=== PATIENT | male | born 1990 | race Caucasian/White ===

== ENCOUNTER 2022-03-21 21:25 | Emergency (ER) | payer SELFPAY ==
[2022-03-21 21:28] VITALS: BP 126/82; PULSE 98; RESP 16; TEMP 36.8; O2SAT 95
--- NOTE | 2022-03-21 21:37 | W.ED.NEUROSD ---
HPI - Neuro Symptoms/Deficit General: Chief Complaint: Neuro Symptoms/Deficit Stated Complaint: possible med reaction Time Seen by Provider: 03/21/22 21:37 History of Present Illness: 31-year-old male patient comes in tonight for complaints of feeling of malaise and dental infection. Patient reports that he taken some amoxicillin tonight and made down and felt lightheaded and like he could not see straight. Patient appears nontoxic. Patient appears no acute distress. Associated symptoms: Deny headache(s) Review of Systems Const: Denies: fever(s) Neuro: Reports: dizziness; Denies: headache(s) PFSH ED PFSH: Medical History Generalized anxiety disorder Severe, saw psychiatry in the past, but not recently Major depression Surgical History No pertinent past surgical history Family History Mother Cancer breast cancer Father Psychiatric illness Social History Smoking and tobacco status: former smoker Quit status (tobacco): has quit using tobacco Former quit date comment: 4 year history of smoking Alcohol intake: never Household members: family Housing: House Marital status: Unknown Highest education level completed: Some College, No Degree Current occupational status: employed Current occupation: [employer] Previous occupational history: [employer] [place] [employer] Exam Const: COMMON NORMALS: alert HENMT: COMMON NORMALS: normocephalic HEAD & SCALP: normocephalic NOSE: Normal nares present MOUTH: Normal oral and palatal mucosa present TEETH & GINGIVA: Yes poor dentition Eye: OTHER: Patient has chronic eye problems including floaters. Neck/C-Spine: COMMON NORMALS: full ROM Resp: COMMON NORMALS: normal respiratory effort and clear to auscultation bilaterally AUSCULTATION: clear to auscultation bilaterally Cardio: COMMON NORMALS: regular rate and regular rhythm RATE: regular rate RHYTHM: regular rhythm Extremity: COMMON NORMALS: normal to inspection Neuro: SENSORIUM/ORIENTATION: Yes alert Psych: COMMON NORMALS: cooperative and normal affect Skin: COMMON NORMALS: turgor normal GENERAL SKIN EXAM: turgor normal Course Vital Signs: Vital signs: Vital Signs Temperature 98.3 F 03/21/22 21:28 Pulse Rate 98 03/21/22 21:28 Respiratory Rate 16 03/21/22 21:28 Blood Pressure 126/82 03/21/22 21:28 Pulse Oximetry 95 03/21/22 21:28 Oxygen Delivery Me thod 03/21/22 21:28 MDM - Neuro Symptoms/Deficit Medical Decision Making Patient comes in today with complaints of dizziness and dental pain. On exam patient appears nontoxic. Patient appears in mild to moderate pain. Respirations are even lungs are clear to auscultation. Abdomen soft nontender. Skin is warm and dry. Patient has some mild erythema to the right face. Tenderness on palpation. Differential diagnosis includes but not limited to dental abscess, migraine headache, anxiety attack, dental pain. Laboratory values noted a small increase in leukocytes at 13,000, CT of the neck noted odontogenic abscess and facial cellulitis without any signs of retropharyngeal abscess. Patient was treated with ketorolac clindamycin and dexamethasone. Patient will be continued on clindamycin and ketorolac at home. Strongly recommended follow-up with dentist for definitive care. Return to ED for new concerns. Lab Data 03/21/22 21:40 03/21/22 21:[address] 03/21/22 21:41 IMPRESSION: 1. Negative for retropharyngeal abscess. 2. Odontogenic abscess. 3. Right facial cellulitis. Laboratory Results WBC 13.6 10^3/uL (4.0-10.0) H 03/21/22 21:40 RBC 4.77 10^6/uL (4.1-5.3) 03/21/22 21:40 Hgb 14.5 g/dL (11.7-16.6) 03/21/22 21:40 Hct 44.7 % (42.0-52.0) 03/21/22 21:40 MCV 93.7 fl (80-94) 03/21/22 21:40 MCH 30.4 pg (28.0-34.0) 03/21/22 21:40 MCHC 32.4 g/dL (30.0-36.0) 03/21/22 21:40 RDW 12.8 % (12.1-15.1) 03/21/22 21:40 Plt Count 320 10^3/cmm (130-400) 03/21/22 21:40 MPV 10.4 fL (7.4-10.4) 03/21/22 21:40 Neut % (Auto) 65.6 % 03/21/22 21:40 Lymph % (Auto) 25.4 % 03/21/22 21:40 [place] % (Auto) 7.2 % 03/21/22 21:40 Eos % (Auto) 1.2 % 03/21/22 21:40 Baso % (Auto) 0.4 % 03/21/22 21:40 Neut # (Auto) 8.93 10^3/uL (1.8-7.7) H 03/21/22 21:40 Lymph # (Auto) 3.5 10^3/uL (0.8-4.8) 03/21/22 21:40 [place] # (Auto) 1.0 10^3/uL (0.2-0.9) H 03/21/22 21:40 Eos # (Auto) 0.2 10^3/uL (0.0-0.8) 03/21/22 21:40 Baso # (Auto) 0.1 10^3/uL (0.0-0.1) 03/21/22 21:40 Nucleated RBC % (auto) 0 % 03/21/22 21:40 Nucleated RBCs # 0.0 /100WBC 03/21/22 21:40 Sodium 140 mmol/L (136-145) 03/21/22 21:40 Potassium 3.2 mmol/L (3.5-5.1) L 03/21/22 21:40 Chloride 99 mmol/L (98-107) 03/21/22 21:40 Carbon Dioxide 25 mmol/L (22-29) 03/21/22 21:40 Anion Gap 19.2 (5-19) H 03/21/22 21:40 BUN 6 mg/dL (6-20) 03/21/22 21:40 Creatinine 0.9 mg/dL (0.7-1.2) 03/21/22 21:40 GFR Calculation 98.4 mL/min (90-130) 03/21/22 21:40 Glucose 104 mg/dL (65-115) 03/21/22 21:40 Calculated Osmolality 288 mOsm/kg (285-295) 03/21/22 21:40 Calcium 8.3 mg/dL (8.5-10.5) L 03/21/22 21:40 Total Bilirubin 0.3 mg/dL (0.15-1.2) 03/21/22 21:40 AST 14 U/L (0-40) 03/21/22 21:40 ALT 15 U/L (0-41) 03/21/22 21:40 Alkaline Phosphatase 77 U/L (40-130) 03/21/22 21:40 Total Protein 7.1 g/dL (6.6-8.7) 03/21/22 21:40 Albumin 4.2 g/dL (3.5-5.2) 03/21/22 21:40 Globulin 2.9 g/dL (1.3-4.6) 03/21/22 21:40 Discharge Plan Discharge Patient Disposition: Home Clinical Impression: Pain, dental, Generalized anxiety disorder, Dental abscess Condition: Stable Prescriptions: New clindamycin HCl 300 mg capsule 300 mg PO QID 7 Days Qty: 28 0RF ketorolac 10 mg tablet 10 mg PO Q6H PRN (Reason: pain (scale score 7-10)) 3 Days Qty: 15 0RF No Action citalopram 40 mg tablet 40 mg PO DAILY 30 Days Qty: 30 3RF clonazepam 1 mg tablet 1 mg PO TID 30 Days Qty: 90 0RF Discharge Orders: Discharge ED (Routine); Ordered 03/21/22 Ordered By: Fuad Conte Referrals: Garrett Castillo, AUTHORIZATION NURSE [Primary Care Provider] - Discharge Diet: Usual diet Discharge Activity: Increase activity as tolerated Patient Instructions: Dental Abscess (ED), Toothache (ED) Activity Restrictions/Additional Instructions: Take antibiotic as directed. Drink plenty of water and fluids with antibiotic. Use acetaminophen and ketorolac for pain. Use ice or heat for further pain relief. Follow-up with dentist for definitive care. Return to ED for new concerns. Coding Level of Care Code ED Harness Worker for Sukumar Fwd Exam Comprehensive
--- NOTE | 2022-03-21 21:41 | CTR_ITS ---
PROCEDURE INFORMATION: Exam: CT Neck With Contrast Exam date and time: 03/21/2022 9:52 PM Age: 31 years old Clinical indication: Other: Possible rxn to meds; Additional info: Dental abscess, R/O retropharyngeal involvement TECHNIQUE: Imaging protocol: Computed tomography of the neck with contrast. Radiation optimization: All CT scans at this facility use at least one of these dose optimization techniques: automated exposure control; mA and/or kV adjustment per patient size (includes targeted exams where dose is matched to clinical indication); or iterative reconstruction. Contrast material: OMNI 350; Contrast volume: 95 ml; Contrast route: INTRAVENOUS (IV); Other protocol: This patient has received 0 known CTs and 0 known cardiac nuclear medicine studies in the 12 months prior to the current study. COMPARISON: CT sinus wo con* [id number] 04/02/2016 9:12 PM RADIATION DOSE METRICS: Total DLP (mGy-cm): 351.31 FINDINGS: Paranasal sinuses: Right maxillary sinus mucosal thickening without air-fluid level. Dental: Multiple dental extractions and dental cavities. Pharynx: Unremarkable. No significant tonsillar enlargement. Larynx: Unremarkable. Epiglottis is normal. Prevertebral and retropharyngeal spaces: Unremarkable. Salivary glands: Normal. Glands are normal in size. Thyroid: Normal. No enlarged or calcified nodules. Lymph nodes: Unremarkable. No lymphadenopathy. Trachea: Visualized trachea is unremarkable. Lungs: Unremarkable as visualized. Bones/joints: Unremarkable. No acute fracture. Soft tissues: Right lower face soft tissue edema. Negative for soft tissue gas. Negative for peripherally enhancing abscess. CT/CT neck w con* [id number] IMPRESSION: 1. Negative for retropharyngeal abscess. 2. Odontogenic abscess. 3. Right facial cellulitis.
[2022-03-21 21:53] LABS: Basophils # 0.1 10^3/uL (0.0-0.1); Basophils % 0.4 %; Eosinophils # 0.2 10^3/uL (0.0-0.8); Eosinophils % 1.2 %; Hematocrit 44.7 % (42.0-52.0); Hemoglobin 14.5 g/dL (11.7-16.6); Lymphocytes # 3.5 10^3/uL (0.8-4.8); Lymphocytes % 25.4 %; Mean Corpuscular HGB Conc 32.4 g/dL (30.0-36.0); Mean Corpuscular Hemoglobin 30.4 pg (28.0-34.0); Mean Corpuscular Volume 93.7 fl (80-94); Mean Platelet Volume 10.4 fL (7.4-10.4); Monocytes % 7.2 %; Neutrophils # 8.93 10^3/uL (1.8-7.7); Neutrophils % 65.6 %; Nucleated Red Blood Cells % 0 %; Platelet Count 320 10^3/cmm (130-400); Red Blood Count 4.77 10^6/uL (4.1-5.3); Red Cell Distribution Width 12.8 % (12.1-15.1); White Blood Count 13.6 10^3/uL (4.0-10.0)
[2022-03-21] MEDS: iohexol 350 mg/mL 500 mL Btl (per mL) IV (21:57)
[2022-03-21 22:02] LABS: Alanine Aminotransferase 15 U/L (0-41); Albumin Level 4.2 g/dL (3.5-5.2); Alkaline Phosphatase 77 U/L (40-130); Anion Gap 19.2 (5-19); Aspartate Amino Transferase 14 U/L (0-40); Blood Urea Nitrogen 6 mg/dL (6-20); Calcium 8.3 mg/dL (8.5-10.5); Carbon Dioxide 25 mmol/L (22-29); Chloride 99 mmol/L (98-107); Creatinine Clr Calc Pharmacy 144.6013; Globulin 2.9 g/dL (1.3-4.6); Glomerular Filtration Rate 98.4 mL/min (90-130); Glucose 104 mg/dL (65-115); Osmolality Calculated 288 mOsm/kg (285-295); Potassium 3.2 mmol/L (3.5-5.1); Sodium 140 mmol/L (136-145); Total Bilirubin 0.3 mg/dL (0.15-1.2); Total Protein 7.1 g/dL (6.6-8.7)
[2022-03-21] MEDS: ondansetron 2 mg/ML SDV 2 mL 4 MG IVP (22:03)
[2022-03-21] MEDS: ketorolac 30 mg/mL INJ 15 MG IVP (22:36)
[2022-03-21] MEDS: dexamethasone 10 mg/mL INJ IVP (22:37)
[2022-03-21] MEDS: clindamycin 900 MG/50 ML PREMIX 100 MG IV (22:40)
[2022-03-21 23:01] VITALS: BP 120/89; PULSE 92; O2SAT 96
== END 2022-03-21 23:12 | disposition home or self-care (01) ==
PROVIDERS: Emergency Provider Nurse Practitioner Family; PCP Clinical Nurse Specialist Adult Health
DX: K04.7 Periapical abscess without sinus (principal); F41.1 Generalized anxiety disorder; Z87.891 Personal history of nicotine dependence
CPT/HCPCS: 70491; 80053; 85025; 96365; 96375; 99285; J1100; J1885; J2405; J3490; Q9967

== ENCOUNTER 2022-08-26 11:06 | Emergency (ER) | payer SELFPAY ==
[2022-08-26 11:26] VITALS: BP 144/100; PULSE 91; RESP 18; TEMP 36.7; O2SAT 96; BMI 32.5
[2022-08-26 12:11] VITALS: BP 133/80
[2022-08-26 12:29] LABS: Basophils # 0.1 10^3/uL (0.0-0.1); Basophils % 0.5 %; Eosinophils # 0.1 10^3/uL (0.0-0.8); Eosinophils % 0.6 %; Hematocrit 47.1 % (42.0-52.0); Hemoglobin 15.7 g/dL (11.7-16.6); Lymphocytes # 1.8 10^3/uL (0.8-4.8); Lymphocytes % 16.1 %; Mean Corpuscular HGB Conc 33.3 g/dL (30.0-36.0); Mean Corpuscular Hemoglobin 31.3 pg (28.0-34.0); Mean Corpuscular Volume 93.8 fl (80-94); Mean Platelet Volume 9.4 fL (7.4-10.4); Monocytes # 0.6 10^3/uL (0.2-0.9); Monocytes % 5.6 %; Neutrophils % 76.9 %; Nucleated Red Blood Cells % 0 %; Platelet Count 367 10^3/cmm (130-400); Red Blood Count 5.02 10^6/uL (4.1-5.3); Red Cell Distribution Width 12.9 % (12.1-15.1); White Blood Count 11.1 10^3/uL (4.0-10.0)
[2022-08-26] MEDS: ondansetron 2 mg/ML SDV 2 mL 4 MG IVP (12:42)
[2022-08-26] MEDS: meclizine 25 mg tablet PO (12:42)
[2022-08-26] MEDS: sodium chloride 0.9% 1,000 ML 999 ML IV (12:42)
[2022-08-26 12:48] LABS: Alanine Aminotransferase 15 U/L (0-41); Albumin Level 4.6 g/dL (3.5-5.2); Alkaline Phosphatase 72 U/L (40-130); Anion Gap 15.5 (5-19); Aspartate Amino Transferase 14 U/L (0-40); Blood Urea Nitrogen 6 mg/dL (6-20); Calcium 8.6 mg/dL (8.5-10.5); Carbon Dioxide 28 mmol/L (22-29); Chloride 99 mmol/L (98-107); Globulin 2.7 g/dL (1.3-4.6); Glomerular Filtration Rate 112.8 mL/min (90-130); Glucose 102 mg/dL (65-115); Osmolality Calculated 286 mOsm/kg (285-295); Potassium 3.5 mmol/L (3.5-5.1); Sodium 139 mmol/L (136-145); Total Bilirubin 0.4 mg/dL (0.15-1.2); Total Protein 7.3 g/dL (6.6-8.7)
--- NOTE | 2022-08-26 12:50 | W.ED.DIZZY ---
HPI - Dizziness General: Chief Complaint: Dizziness Stated Complaint: NVD Time Seen by Provider: 08/26/22 11:48 History of Present Illness: HPI Narrative: This patient is a 31 year old presenting with dizziness. He woke up this morning at around 10 am, and as soon as he opened his eye he felt like he was spinning, then falling. He says that his body kept jerking and flailing like he was trying to catch his balance but he was unable to control it. He was sweating and nauseous. The symptoms continued for about 45 minutes, and then he finally called 911. He was not able to get up or do anything to control the symptoms during that time. He was sitting up on the stretcher during my exam - eyes open - but looking as though he was trying to remain still. He still felt like he was unbalanced . He continued to have some nausea. His vision is blurry - but no double vision. He denies tinnitus, but feels like his left ear is full . He has a hoarse voice that is not typical for him. He denies sore throat, no recent illness, no headache, no chest pain or shortness of breath. He takes citalopram - no new medications or dose changes. He denies any substance use at all. He denies any injury. No numbness, tingling, difficulty with coordination. [facility] ED PFSH: Medical History Generalized anxiety disorder Severe, saw psychiatry in the past, but not recently Major depression Surgical History No pertinent past surgical history Family History Mother Cancer breast cancer Father Psychiatric illness Social History Smoking and tobacco status: former smoker Quit status (tobacco): has quit using tobacco Former quit date comment: 4 year history of smoking Alcohol intake: never Substance/Drug Use: former Household members: family Housing: House Marital status: Unknown Highest education level completed: Some College, No Degree Current occupational status: employed Current occupation: [employer] Previous occupational history: [employer] Physical Exam Const: COMMON NORMALS: no acute distress, patient oriented x3, no limitations and alert GENERAL APPEARANCE: cooperative and comfortable HENMT: HEAD & SCALP: normal to inspection FACE & SINUS: normal facial exam THROAT: other (small white patches on the tonsils) Eye: GENERAL EYE: appearance normal, both eyes and all related structures OTHER: right eye with slight injection of the conjunctiva Neck/C-Spine: COMMON NORMALS: supple, no meningeal signs and no JVD Chest: COMMONS NORMALS: normal inspection of the chest Resp: COMMON NORMALS: normal respiratory effort, No use of accessory muscles and clear to auscultation bilaterally AUSCULTATION: clear to auscultation bilaterally Cardio: COMMON NORMALS: no JVD, regular rate, regular rhythm and No murmurs present (Cardio) RATE: regular rate RHYTHM: regular rhythm GI: COMMON NORMALS: Normal to inspection, nondistended, normoactive bowel sounds present, Soft to palpation and non-tender INSPECTION: Yes normal to inspection AUSCULTATION: Yes normoactive bowel sounds PALPATION: Yes Soft to palpation Back/Pelvis: COMMON NORMALS: thoracic and lumbar spine normal to inspection Extremity: COMMON NORMALS: normal to inspection Neuro: COMMON NORMALS: patient oriented x3, moves all extremities, no focal motor deficits and no sensory deficits noted SENSORIUM/ORIENTATION: Yes alert MENINGEAL SIGNS: Yes no meningeal signs Psych: COMMON NORMALS: mental status grossly normal, cooperative and normal affect Skin: COMMON NORMALS: no rashes or lesions noted and turgor normal GENERAL SKIN EXAM: no rashes or lesions noted and turgor normal Course Vital Signs: Vital signs: Vital Signs Temperature 98.0 F 08/26/22 11:26 Pulse Rate 91 08/26/22 11:26 Respiratory Rate 18 08/26/22 11:26 Blood Pressure 133/80 08/26/22 12:11 Pulse Oximetry 96 08/26/22 11:26 Oxygen Delivery Me thod Room Air 08/26/22 11:26 MDM - Dizziness Medical Decision Making Likely BPPV - however unclear what to make of the uncontrollable limb movements that the patient described. No sore throat, but some patchy white spots on tonsils. Redness of the right eye. CT ordered due to the atypical limb movements - however the patient is refusing. He initially refused because he hadn't gotten his meds and couldn't lay down for the scan. Then later he just said he didn't want it and wants to leave. He reported to me that he had the limb movements while in CT - but the senior pharmacy technician did not observe any movements. Patient was discharged with meclizine and outpatient follow up - precautions. Lab Data 08/26/22 12:21 08/26/22 12:21 Laboratory Results WBC 11.1 10^3/uL (4.0-10.0) H 08/26/22 12:21 RBC 5.02 10^6/uL (4.1-5.3) 08/26/22 12:21 Hgb 15.7 g/dL (11.7-16.6) 08/26/22 12:21 Hct 47.1 % (42.0-52.0) 08/26/22 12:21 MCV 93.8 fl (80-94) 08/26/22 12:21 MCH 31.3 pg (28.0-34.0) 08/26/22 12:21 MCHC 33.3 g/dL (30.0-36.0) 08/26/22 12:21 RDW 12.9 % (12.1-15.1) 08/26/22 12:21 Plt Count 367 10^3/cmm (130-400) 08/26/22 12:21 MPV 9.4 fL (7.4-10.4) 08/26/22 12:21 Neut % (Auto) 76.9 % 08/26/22 12:21 Lymph % (Auto) 16.1 % 08/26/22 12:21 [place] % (Auto) 5.6 % 08/26/22 12:21 Eos % (Auto) 0.6 % 08/26/22 12:21 Baso % (Auto) 0.5 % 08/26/22 12:21 Neut # (Auto) 8.50 10^3/uL (1.8-7.7) H 08/26/22 12:21 Lymph # (Auto) 1.8 10^3/uL (0.8-4.8) 08/26/22 12:21 [place] # (Auto) 0.6 10^3/uL (0.2-0.9) 08/26/22 12:21 Eos # (Auto) 0.1 10^3/uL (0.0-0.8) 08/26/22 12:21 Baso # (Auto) 0.1 10^3/uL (0.0-0.1) 08/26/22 12:21 Nucleated RBC % (auto) 0 % 08/26/22 12:21 Nucleated RBCs # 0.0 /100WBC 08/26/22 12:21 Sodium 139 mmol/L (136-145) 08/26/22 12:21 Potassium 3.5 mmol/L (3.5-5.1) 08/26/22 12:21 Chloride 99 mmol/L (98-107) 08/26/22 12:21 Carbon Dioxide 28 mmol/L (22-29) 08/26/22 12:21 Anion Gap 15.5 (5-19) 08/26/22 12:21 BUN 6 mg/dL (6-20) 08/26/22 12:21 Creatinine 0.8 mg/dL (0.7-1.2) 08/26/22 12:21 GFR Calculation 112.8 mL/min (90-130) 08/26/22 12:21 Glucose 102 mg/dL (65-115) 08/26/22 12:21 Calculated Osmolality 286 mOsm/kg (285-295) 08/26/22 12:21 Calcium 8.6 mg/dL (8.5-10.5) 08/26/22 12:21 Total Bilirubin 0.4 mg/dL (0.15-1.2) 08/26/22 12:21 AST 14 U/L (0-40) 08/26/22 12:21 ALT 15 U/L (0-41) 08/26/22 12:21 Alkaline Phosphatase 72 U/L (40-130) 08/26/22 12:21 Total Protein 7.3 g/dL (6.6-8.7) 08/26/22 12:21 Albumin 4.6 g/dL (3.5-5.2) 08/26/22 12:21 Globulin 2.7 g/dL (1.3-4.6) 08/26/22 12:21 Discharge Plan Discharge Patient Disposition: Home Clinical Impression: Benign paroxysmal positional vertigo Condition: Stable Prescriptions: New meclizine 25 mg tablet 25 mg PO TID PRN (Reason: dizziness) Qty: 20 0RF No Action citalopram 40 mg tablet 40 mg PO DAILY 30 Days Qty: 30 3RF clonazepam 1 mg tablet 1 mg PO TID 30 Days Qty: 90 0RF Discharge Orders: Discharge ED (Routine); Ordered 08/26/22 Ordered By: Yara Calabrese Referrals: Garrett Castillo, TOLL TESTBOARD WORKER [Primary Care Provider] - Patient Instructions: Opioid Safety, Pain Management Activity Restrictions/Additional Instructions: Return to the ED if new or worse symptoms. Coding Level of Care Code ED Business Law Teacher for Sukumar Betts
--- NOTE | 2022-08-26 12:55 | PC.NURSE ---
PT WAS TAKEN TO CT BEFORE MEDICATIONS WERE GIVEN, PT REFUSED TO CONTINUE CT UNTIL HE GETS MEDS, PT WAS GIVEN MEDS, [address] CAME BACK AFTER MEDS AND HE REFUSED AGAIN UNTIL ALL VERTIGO IS GONE.
== END 2022-08-26 13:41 | disposition home or self-care (01) ==
PROVIDERS: Emergency Provider Emergency Medicine; PCP Clinical Nurse Specialist Adult Health
DX: H81.10 Benign paroxysmal vertigo, unspecified ear (principal); Z87.891 Personal history of nicotine dependence
CPT/HCPCS: 80053; 85025; 96374; 99284; J2405; J7030; J8597

== ENCOUNTER 2023-02-03 07:15 | Inpatient (IN) | payer SELFPAY ==
[2023-02-03] VITALS (7 sets, daily range): BP systolic 111–143; BP diastolic 80–108; PULSE 98–121; RESP 15–21; TEMP 36.4–36.9; O2SAT 96–98; BMI 27.3
[2023-02-03 07:40] LABS: Basophils % 0.2 %; Eosinophils % 0.2 %; Hematocrit 48.6 % (37-53); Lymphocytes # 1.4 10^3/uL (0.8-4.8); Lymphocytes % 15.2 %; Mean Corpuscular HGB Conc 33.7 g/dL (30-55); Mean Corpuscular Hemoglobin 30.8 pg (27-33); Mean Corpuscular Volume 91.2 fl (82-101); Mean Platelet Volume 9.2 fL (7.4-10.4); Monocytes # 0.5 10^3/uL (0.2-0.9); Neutrophils # 7.52 10^3/uL (1.8-7.7); Neutrophils % 79.3 %; Nucleated Red Blood Cells % 0 %; Platelet Count 374 10^3/cmm (157-399); Red Blood Count 5.33 10^6/uL (3.85-5.65); Red Cell Distribution Width 11.9 % (12.1-15.1); White Blood Count 9.48 10^3/uL (3.29-11.43)
--- NOTE | 2023-02-03 07:43 | W.ED.GENADLT ---
HPI - General Adult General: Chief complaint: General Medical Stated complaint: medication withdraw, fear, anxiety Time Seen by Provider: 02/03/23 07:22 Source: patient Mode of arrival: ambulatory History of Present Illness: 32-year-old male presents to the emergency room complaining of withdrawal from clonazepam citalopram gabapentin and kratom. He usually sees a psychiatrist in [place] he says she is no longer practicing there and he is out of all of his medications for the last 24 hours. At the bedside he has a couple of uxem-xcs-knkcpen medications and 1 bottle of clonazepam 1 mg that is empty was filled on 01/19 for 40 tablets for 1 every 8 hours as needed. He denies desire to hurt anyone else was extremely anxious about his medications. Associated symptoms: Deny chest pain, confusion, cough, diaphoresis, decreased appetite, dyspnea, fevers/chills, headache(s), malaise, nausea, rash, palpitations, seizures, short of breath, syncope, vomiting or weakness Treatments prior to arrival: none Review of Systems Const: Denies: fever(s), chills, malaise or diaphoresis Card: Denies: chest pain, palpitations or syncope Resp: Denies: dyspnea GI: Denies: abdominal pain, nausea or vomiting : Denies: dysuria, urinary frequency or urinary urgency Musc: Denies: neck pain or back pain Skin/Breast: Denies: rash Neuro: Denies: headache(s) or confusion Psych: Reports: anxiety PFSH ED PFSH: Medical History Major depression Generalized anxiety disorder Severe, saw psychiatry in the past, but not recently Surgical History No pertinent past surgical history Family History Mother Cancer breast cancer Father Psychiatric illness Social History Smoking and tobacco/nicotine status: former use of tobacco/nicotine Quit status (tobacco/nicotine): has quit using Former quit date comment: 4 year history of smoking Alcohol intake: never Substance/Drug Use: former Household members: family Housing: House Marital status: Unknown Highest education level completed: Some College, No Degree Current occupational status: employed Current occupation: [email or web address] Previous occupational history: [employer] Physical Exam Const: COMMON NORMALS: no acute distress GENERAL APPEARANCE: cooperative and anxious ORIENTATION/CONSCIOUSNESS: Yes awake HENMT: COMMON NORMALS: normocephalic, atraumatic and hearing grossly normal bilaterally HEAD & SCALP: normocephalic and atraumatic Resp: COMMON NORMALS: normal respiratory effort, No retractions, No use of accessory muscles and clear to auscultation bilaterally AUSCULTATION: clear to auscultation bilaterally Cardio: COMMON NORMALS: regular rate, regular rhythm and No murmurs present (Cardio) RATE: regular rate RHYTHM: regular rhythm GI: COMMON NORMALS: Soft to palpation and No hepatosplenomegaly present AUSCULTATION: Yes normoactive bowel sounds PALPATION: Yes Soft to palpation, No Tenderness to palpation present (GI), No Guarding due to palpation present (GI) and Yes No hepatosplenomegaly present Extremity: COMMON NORMALS: normal to inspection, capillary refill normal, no clubbing, cyanosis or edema, no calf tenderness and no pedal edema Skin: COMMON NORMALS: no rashes or lesions noted GENERAL SKIN EXAM: no rashes or lesions noted Course Vital Signs: Vital signs: Vital Signs Temperature 98.0 F 02/03/23 07:21 Pulse Rate 107 H 02/03/23 07:23 Respiratory Rate 21 H 02/03/23 07:23 Blood Pressure 142/108 02/03/23 07:23 Pulse Oximetry 97 02/03/23 07:23 Oxygen Delivery Me thod Room Air 02/03/23 07:23 MDM - General Adult Medical Decision Making Patient states he is not taking escitalopram and gabapentin for 24 hours he does have a bottle of clonazepam refilled in [facility] for 40 tablets on 01/19 he has 3 refills for this medication but has not used them at this point. He does allude to harming himself if his symptoms do not get better. Labs and imaging reviewed medically he is cleared I am concerned given his demeanor and his response some questions regarding self-harm that if he leaves here he may not have the capacity to manage his ongoing issues with anxiety and may advance lethality. Will admit discussed with Dr. Diggs he concurs. Medical Records I reviewed the patient's medical records. Lab Data I reviewed the patient's lab results. 02/03/23 07:29 02/03/23 07:29 Laboratory Results WBC 9.48 10^3/uL (3.29-11.43) 02/03/23 07:29 RBC 5.33 10^6/uL (3.85-5.65) 02/03/23 07:29 Hgb 16.40 g/dL (11.27-16.99) 02/03/23 07:29 Hct 48.6 % (37-53) 02/03/23 07:29 MCV 91.2 fl (82-101) 02/03/23 07: MCH 30.8 pg (27-33) 02/03/23 07: MCHC 33.7 g/dL (30-55) 02/03/23 07:29 RDW 11.9 % (12.1-15.1) L 02/03/23 07:29 Plt Count 374 10^3/cmm (157-399) 02/03/23 07:29 MPV 9.2 fL (7.4-10.4) 02/03/23 07:29 Neut % (Auto) 79.3 % 02/03/23 07: Lymph % (Auto) 15.2 % 02/03/23 07:29 [place] % (Auto) 5.0 % 02/03/23 07:29 Eos % (Auto) 0.2 % 02/03/23 07:29 Baso % (Auto) 0.2 % 02/03/23 07:29 Neut # (Auto) 7.52 10^3/uL (1.8-7.7) 02/03/23 07:29 Lymph # (Auto) 1.4 10^3/uL (0.8-4.8) 02/03/23 07:29 Rapides # (Auto) 0.5 10^3/uL (0.2-0.9) 02/03/23 07:29 Eos # (Auto) 0.0 10^3/uL (0.0-0.8) 02/03/23 07:29 Baso # (Auto) 0.0 10^3/uL (0.0-0.1) 02/03/23 07:29 Nucleated RBC % (auto) 0 % 02/03/23 07:29 Nucleated RBCs # 0.0 /100WBC 02/03/23 07:29 Sodium 129 mmol/L (136-145) L 02/03/23 07:29 Potassium 3.8 mmol/L (3.5-5.1) 02/03/23 07:29 Chloride 92 mmol/L (98-107) L 02/03/23 07:29 Carbon Dioxide 23 mmol/L (22-29) 02/03/23 07:29 Anion Gap 17.8 (5-19) 02/03/23 07:29 BUN 6 mg/dL (6-20) 02/03/23 07:29 Creatinine 0.9 mg/dL (0.7-1.2) 02/03/23 07:29 GFR Calculation 97.8 mL/min (90-130) 02/03/23 07:29 Glucose 123 mg/dL (65-115) H 02/03/23 07:29 Calculated Osmolality 267 mOsm/kg (285-295) L 02/03/23 07:29 Calcium 9.2 mg/dL (8.5-10.5) 02/03/23 07:29 Total Bilirubin 0.4 mg/dL (0.15-1.2) 02/03/23 07:29 AST 20 U/L (0-40) 02/03/23 07:29 ALT 26 U/L (0-41) 02/03/23 07:29 Alkaline Phosphatase 96 U/L (40-130) 02/03/23 07:29 Total Protein 7.9 g/dL (6.6-8.7) 02/03/23 07:29 Albumin 4.8 g/dL (3.5-5.2) 02/03/23 07:29 Globulin 3.1 g/dL (1.3-4.6) 02/03/23 07:29 Urine Color Yellow (Yellow) 02/03/23 07:34 Urine Appearance Clear (CLEAR) 02/03/23 07:34 Urine pH 6 (5-7) 02/03/23 07:34 Ur Specific [place] 1.010 (1.005-1.030) 02/03/23 07:34 Urine Protein Neg (Negative) 02/03/23 07:34 Urine Glucose (UA) Norm (Normal) 02/03/23 07:34 Urine Ketones Negative (Negative) 02/03/23 07:34 Urine Blood Neg (Negative) 02/03/23 07:34 Urine Nitrate Negative (Negative) 02/03/23 07:34 Urine Bilirubin Neg (Negative) 02/03/23 07:34 Urine Urobilinogen Neg mg/dL (Negative) 02/03/23 07:34 Ur Leukocyte Esterase Negative (Negative) 02/03/23 07:34 Salicylates < 0.3 mg/dL (3-10) L 02/03/23 07:29 Urine Opiates Screen Negative ng/mL (Negative) 02/03/23 07:34 Acetaminophen < 5.0 ug/mL (10-30) L 02/03/23 07:29 Ur Barbiturates Screen Negative ng/mL (Negative) 02/03/23 07:34 Ur Phencyclidine Scrn Negative ng/mL (Negative) 02/03/23 07:34 Ur Amphetamines Screen Negative ng/mL (Negative) 02/03/23 07:34 U Benzodiazepines Scrn Positive ng/mL (Negative) H 02/03/23 07:34 Urine Cocaine Screen Negative ng/mL (Negative) 02/03/23 07:34 U Marijuana (THC) Screen Negative ng/mL (Negative) 02/03/23 07:34 Ethyl Alcohol < 10 mg/dL (0-10) 02/03/23 07:29 No radiology studies performed this visit Discharge Plan Discharge Patient Disposition: Admitted As Inpatient Clinical Impression: Suicidal ideation, Generalized anxiety disorder, Major depression Condition: Stable Prescriptions: No Action citalopram 40 mg tablet 40 mg PO DAILY 30 Days Qty: 30 3RF clonazepam 1 mg tablet 1 mg PO TID 30 Days Qty: 90 0RF meclizine 25 mg tablet 25 mg PO TID PRN (Reason: dizziness) Qty: 20 0RF Referrals: Garrett Castillo OIL WELL LOGGING ENGINEER [Primary Care Provider] - Coding Level of Care Code ED Collision Estimator for Sukumar Betts
[2023-02-03 07:48] LABS: Add Urine Microscopic? NO; Charge for UA Resulting for Rev
[2023-02-03 07:50] LABS: Bilirubin Urine Neg (Negative); Blood Urine Neg (Negative); Glucose Urine UA Norm (Normal); Ketones Urine Negative (Negative); Leukocyte Esterase Urine Negative (Negative); Nitrate Urine Negative (Negative); Protein Urine Neg (Negative); Urine Appearance Clear (CLEAR); Urine Color Yellow (Yellow); Urobilinogen Urine Neg (Negative); pH Urine 6 (5-7)
[2023-02-03 07:55] LABS: Acetaminophen < 5.0 ug/mL (10-30); Alanine Aminotransferase 26 U/L (0-41); Albumin Level 4.8 g/dL (3.5-5.2); Alcohol Level < 10 mg/dL (0-10); Alkaline Phosphatase 96 U/L (40-130); Anion Gap 17.8 (5-19); Aspartate Amino Transferase 20 U/L (0-40); Blood Urea Nitrogen 6 mg/dL (6-20); Calcium 9.2 mg/dL (8.5-10.5); Carbon Dioxide 23 mmol/L (22-29); Chloride 92 mmol/L (98-107); Creatinine Clr Calc Pharmacy 126.6433; Globulin 3.1 g/dL (1.3-4.6); Glomerular Filtration Rate 97.8 mL/min (90-130); Glucose 123 mg/dL (65-115); Osmolality Calculated 267 mOsm/kg (285-295); Potassium 3.8 mmol/L (3.5-5.1); Salicylate < 0.3 mg/dL (3-10); Sodium 129 mmol/L (136-145); Total Bilirubin 0.4 mg/dL (0.15-1.2); Total Protein 7.9 g/dL (6.6-8.7)
[2023-02-03] MEDS: LORazepam 2 mg Tablet PO (07:58)
[2023-02-03 08:00] LABS: Amphetamines Screen Urine Negative (Negative); Barbiturates Screen Urine Negative (Negative); Benzodiazepines Screen Urine Positive (Negative); Cocaine Screen Urine Negative (Negative); Opiate Screen Urine Negative (Negative); PCP Screen Urine Negative (Negative); THC Screen Urine Negative (Negative)
[2023-02-03] MEDS: gabapentin 300 mg Capsule PO ×3 (09:00→20:13)
[2023-02-03] MEDS: citalopram 20 mg Tablet 40 MG PO (09:00)
[2023-02-03] MEDS: OLANZapine 5 mg ODT PO ×2 (10:37→18:45)
[2023-02-03] MEDS: nicotine 21 mg Patch 1 PATCH TRANSDERMA (10:37)
--- NOTE | 2023-02-03 15:41 | PC.NURSE ---
Attempting to verify clonazepam 1mg TID PRN. Patient stated that he has been taken it daily for three years. This nurse contacted [facility] out-patient pharmacy and [place] pharmacy. Both denied having this medication filled by patient. Contacted [facility] pharmacy. cancelled the medication 06/28/22. Patient was not picked up by patient in May or June 2022. Contacted [facility] in [place]. The first time clonazepam was sent to [facility] was on 12/28/21. The last time was Feb 25, [address] Garrett Murphy.
--- NOTE | 2023-02-03 18:48 | PC.NURSE ---
Patient at window stating that he is about to go down hill . This nurse asked what I could do to help with this. Patient stated that the only thing that is going to help him is medication. Patient appears agitated and upset. Administered Zyprexa 5mg ODT to patient. Patient stated that he doesn't feel worse than he did upon arrival, but that he is going down hill .
[2023-02-03] MEDS: haloperidol 5 mg Tablet PO (20:13)
[2023-02-03] MEDS: CLONazepam 1 mg Tablet PO (20:52)
[2023-02-03] MEDS: nicotine 2 mg Gum BUCCAL (20:52)
[2023-02-03] MEDS: hyDROXYzine 25 mg Capsule 50 MG PO (22:19)
[2023-02-04] MEDS: OLANZapine 5 mg ODT PO ×2 (02:15→09:26)
[2023-02-04] MEDS: ibuprofen 600 mg Tablet PO (03:57)
[2023-02-04] MEDS: ondansetron 4 MG Tablet PO (03:57)
[2023-02-04] MEDS: haloperidol 5 mg Tablet PO (03:57)
--- NOTE | 2023-02-04 04:01 | PC.NURSE ---
PT HAS BEEN TO THE NURSES SEVERAL TIMES THROUGH OUT THE SHIFT STATING HE IS WITHDRAWING FROM A NEW ZEALANDER PHARMACEUTICAL MEDICATION THAT IS NOT APPROVED BY THE FDA AND KRATOM. PT REPORTED THAT THE DAY NURSE SAID THE WAS GOING TO START ME ON SUBOXONE FOR MY KRATOM WITHDRAW AND I WANT TO GO AHEAD AND GET IT NOW BECAUSE I'M REALLY HURTING AND WITHDRAWING BAD. PT WAS INFORMED THAT HE HAS NOT BEEN STARTED ON SUBOXONE AT THIS TIME BUT THIS RN WOULD NOTIFY AND ASK ABOUT THE SUBOXONE. PT HAS BEEN GIVEN HALDOL 5 MG AT THE BEGINNING OF SHIFT, PT HAD 2 DOSES OF ZYPREXA ON DAY SHIFT, PT WAS ALSO GIVEN CLONAZEPAM 1 MG WITH BEDTIME MEDICATIONS, THEN WOKE UP AND TOOK A DOSE OF ZYDIS 5 MG, THEN 2 HOURS LATER TOOK VISTARIL 50 MG. PT JUST WOKE UP AND WAS GIVEN HALDOL 5 MG FOR AGITATION , ZOFRAN 4 MG OF NAUSEA AND IBUPROFEN 600 MG FOR PAIN 08/30. PT THEN WENT TO ROOM AND RN ENCOURAGED HIM TO LAY DOWN.
--- NOTE | 2023-02-04 04:36 | PC.NURSE ---
Patient approached this tech at the nurses station and stated that he really needed to leave. This tech informed patient that he would have to speak with the doctor. Patient wanted to know when the doctor would be here because he really needs to go. This tech let patient know that he would be here later this morning. Patient then returned to his room.
--- NOTE | 2023-02-04 04:46 | PC.NURSE ---
SPOKE TO DR. JANE AND NOTIFIED OF ALL PRN'S TAKEN TONIGHT, REQUEST TO LEAVE AND SUBOXONE. NO NEW ORDERS WERE RECEIVED. DR. JANE DID TELL THIS RN TO LET PT KNOW HE WOULD BE HERE SHORTLY AND HE WOULD SEE HIM AND DISCUSS TREATMENT OPTIONS THEN AND DISCUSS WHY HE IS WANTING TO LEAVE. PT THANKED RN AND STATED HE UNDERSTOOD.
[2023-02-04 06:00] VITALS: BP 120/85; PULSE 90; RESP 18; TEMP 36.8; O2SAT 96
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
--- NOTE | 2023-02-04 06:32 | PC.NURSE ---
CONTINUES TO BE AWAKE REQUESTING MEDICATIONS FOR ANXIETY. PT INFORMED TO WAIT TO SPEAK TO DR. JANE DUE TO THE AMOUNT OF PRN ANXIETY MEDICATIONS HE HAS ALREADY RECEIVED.
[2023-02-04] MEDS: citalopram 20 mg Tablet 40 MG PO (08:13)
[2023-02-04] MEDS: gabapentin 300 mg Capsule PO ×2 (08:13→14:14)
[2023-02-04] MEDS: CLONazepam 1 mg Tablet PO ×2 (08:13→14:14)
[2023-02-04] MEDS: nicotine 21 mg Patch 1 PATCH TRANSDERMA (09:12)
--- NOTE | 2023-02-04 10:28 | PC.NURSE ---
patient reports kratom withdraws, restless in legs and arms, generalized body weakness. This nurse informed
[2023-02-04] MEDS: benztropine 1 mg Tablet PO (13:57)
[2023-02-04 14:00] VITALS: BP 117/74; PULSE 106; RESP 15; TEMP 36.8; O2SAT 96
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
[2023-02-04 15:38] VITALS: BP 117/74; PULSE 106; RESP 15; TEMP 36.8; O2SAT 96
== END 2023-02-04 16:19 | disposition home or self-care (01) | DRG 885 ==
LOC: ER 09:36 → NP 09:49
PROVIDERS: Admitting Provider Psychiatry & Neurology Psychiatry; Emergency Provider Family Medicine; PCP Clinical Nurse Specialist Adult Health; Visit Provider Psychiatry & Neurology Psychiatry
DX: F33.9 Major depressive disorder, recurrent, unspecified (principal); R45.851 Suicidal ideations; F41.1 Generalized anxiety disorder; Z87.891 Personal history of nicotine dependence; F43.10 Post-traumatic stress disorder, unspecified; F60.3 Borderline personality disorder; Z81.8 Family history of other mental and behavioral disorders; F12.10 Cannabis abuse, uncomplicated; F10.20 Alcohol dependence, uncomplicated
CPT/HCPCS: 36415; 80053; 80306; 80307; 81003; 85025; 97165; 99285; Q0162

== ENCOUNTER → 2023-03-21 12:47 | Outpatient (BNVA) | payer BC, SELFPAY | PROVIDERS: PCP Clinical Nurse Specialist Adult Health; Visit Provider Nurse Practitioner | DX: Z78.9 Other specified health status (principal); F33.9 Major depressive disorder, recurrent, unspecified; F41.1 Generalized anxiety disorder | CPT/HCPCS: 80306 ==

== ENCOUNTER → 2023-05-23 12:29 | Outpatient (BNVA) | payer BC, SELFPAY | PROVIDERS: PCP Clinical Nurse Specialist Adult Health; Visit Provider Clinical Nurse Specialist Adult Health | DX: G62.9 Polyneuropathy, unspecified (principal); K02.9 Dental caries, unspecified | CPT/HCPCS: 80053 ==

== ENCOUNTER 2023-06-21 08:50 | Outpatient (CLI) | payer BC, SELFPAY ==
--- NOTE | 2023-06-21 08:55 | XRR_ITS ---
PROCEDURE INFORMATION: Exam: XR Chest Exam date and time: 06/21/2023 8:57 AM Age: 32 years old Clinical indication: Left-sided; Patient HX: Left sided chest pain, weight gain TECHNIQUE: Imaging protocol: Radiologic exam of the chest. Views: 2 views. COMPARISON: CT neck w con* [id number] 03/21/2022 9:52 PM FINDINGS: Lungs: No focal lung consolidation. Pleural spaces: No pleural effusion. No pneumothorax. Heart/Mediastinum: Unremarkable. No cardiomegaly. Bones/joints: No acute bony abnormality. XR/XR chest 2V* [id number] IMPRESSION: No focal lung consolidation.
== END 2023-06-21 08:51 | disposition home or self-care (01) ==
LOC: RAD 08:52
PROVIDERS: PCP Clinical Nurse Specialist Adult Health; Visit Provider Clinical Nurse Specialist Adult Health
DX: R63.5 Abnormal weight gain (principal)
CPT/HCPCS: 71046; 83880

== ENCOUNTER 2023-08-18 12:26 | Outpatient (CLI) | payer BC, SELFPAY ==
--- NOTE | 2023-08-18 12:30 | XR_ITS ---
WS: [id number] Exam: XR abdomen min 2V [id number] Date/Time of Exam: 08/18/2023 12:35 PM Reason For Exam: abdominal pain/constipation No bowel obstruction or pneumoperitoneum. Significant retained stool retention in the large bowel. No sign of organ enlargement. Bony structures are intact. XR/XR abdomen min 2V [id number] IMPRESSION: 1. Constipation. No acute abdominal process.
== END 2023-08-18 12:27 | disposition home or self-care (01) ==
LOC: RAD 12:27
PROVIDERS: PCP Clinical Nurse Specialist Adult Health; Visit Provider Clinical Nurse Specialist Adult Health
DX: R10.9 Unspecified abdominal pain (principal); M79.10 Myalgia, unspecified site; K59.00 Constipation, unspecified
CPT/HCPCS: 74019; 80053; 85025; 85651; 86038; 86140; 86618; 86666; 86757

== ENCOUNTER 2023-10-10 08:22 | Emergency (ER) | payer BC, MEDICAID, SELFPAY ==
[2023-10-10 08:48] VITALS: BP 142/85; PULSE 90; RESP 18; TEMP 36.7; O2SAT 95; BMI 36.7
[2023-10-10 09:00] VITALS: BP 126/82; PULSE 90; RESP 18; O2SAT 95
--- NOTE | 2023-10-10 09:12 | ED_ITS ---
HPI - Dental/Oral 2 General: Chief complaint: General Medical Stated complaint: Facial swelling and headaches Time Seen by Provider: 10/10/23 08:53 Source: patient Mode of arrival: ambulatory Limitations: no limitations History of Present Illness: Patient is a 32-year-old male presents to ED today with a complaint of a dental infection to his right central incisor. He admittedly has very poor dentition. He states over the past 2 days he has noticed intermittent facial swelling and headaches as well as edema surrounding his top lip and gum. Reports facial swelling has improved today. Currently does not have a headache. MD Complaint: tooth pain Onset (ago): day(s) Duration: constant Severity: moderate Relieving factors: nothing Exacerbating factors: nothing Context: history of dental caries and poor dental care Associated symptoms: Reports other (facial swelling); Denies ear or mastoid pain, fever(s) or odynophagia Treatment prior to arrival: none Related Data Previous Rx's Medication Instructions Recorded losartan 25 mg tablet 25 mg PO DAILY #30 tabs 08/18/23 gabapentin 600 mg tablet 600 mg PO QID #120 tabs 09/28/23 buspirone 10 mg tablet 10 mg PO BID #60 tabs 10/04/23 citalopram 40 mg tablet 40 mg PO QAM 30 days #30 tabs 10/04/23 clonazepam 0.5 mg tablet 0.5 mg PO BID PRN anxiety #45 tabs 10/04/23 olanzapine 2.5 mg tablet 2.5 mg PO DAILY PRN paranoia #30 10/04/23 tabs clindamycin HCl 300 mg capsule 300 mg PO Q6H 7 days #28 caps 10/10/23 Allergies Allergy/AdvReac Type Severity Reaction Status Date / Time Penicillins Allergy Intermediate Hives Verified 10/08/23 21:03 Review of Systems 2 Const: Denies: fever(s), chills, body aches, fatigue or malaise Eyes: Denies: change in vision, blurry vision, photophobia, floaters or seeing flashes ENMT: Reports: dental pain and sinus pain; Denies: throat pain, odynophagia, ear or mastoid pain, nasal discharge or nasal congestion Card: Denies: chest pain Resp: Denies: dyspnea GI: Denies: nausea or vomiting Musc: Denies: neck pain Neuro: Reports: headache(s) (occasional); Denies: numbness in extremities, weakness in extremities or sensory changes PFSH ED 2 PFSH: Medical History Generalized anxiety disorder Nicotine use disorder Major depressive disorder in remission Quit drug use in remote past Psychiatric care Major depression Surgical History No pertinent past surgical history Family History Mother Cancer breast cancer Father Psychiatric illness Social History Smoking and tobacco/nicotine status: unknown if used tobacco/nicotine Quit status (tobacco/nicotine): has quit using Former quit date comment: 4 year history of smoking Alcohol intake: never Substance/Drug Use: former Household members: family Housing: House Marital status: Unknown Highest education level completed: Some College, No Degree Physical Exam 2 Const: COMMON NORMALS: no acute distress, no limitations, alert and well nourished GENERAL APPEARANCE: cooperative NUTRITIONAL APPEARANCE: o verweight ORIENTATION/CONSCIOUSNESS: Yes awake, Yes oriented to person, Yes oriented to place and Yes oriented to time HENMT: COMMON NORMALS: normocephalic and atraumatic HEAD & SCALP: normal to inspection, normocephalic and atraumatic FACE & SINUS: edema (mild edema-see image) FACE & SINUS IMAGES: 1. mild edema stimming from dental infection MOUTH: Normal oral and palatal mucosa present and lip normal TEETH & GINGIVA: Yes caries and Yes poor dentition TEETH & GINGIVA IMAGES: 1. widespread severe dental disease; tooth 8 is significantly decayed with purulent drainage easily expressed from gumline; no obvious large abscess that I can drain at this time THROAT: posterior oropharynx normal and tonsils normal Eye: COMMON NORMALS: Equal, round and reactive pupils present and EOMs intact bilaterally GENERAL EYE: appearance normal, both eyes and all related structures and normal light reflex PUPIL: Yes Equal, round and reactive pupils present DIRECT OPHTHALMOSCOPY: Yes normal light reflex Neck/C-Spine: GENERAL: Yes lymphadenopathy (most likely reactive ) normal Resp: COMMON NORMALS: normal respiratory effort and clear to auscultation bilaterally AUSCULTATION: clear to auscultation bilaterally Cardio: COMMON NORMALS: regular rate and regular rhythm RATE: regular rate RHYTHM: regular rhythm Neuro: ABDULAZIZ COMA SCALE: document GCS findings Ironside coma scale eye opening: Spontaneous Ironside coma scale verbal response: Orientated Abdulaziz coma scale motor response: Obey commands Abdulaziz coma scale total score: 15 COMMON NORMALS: CN's II-XII intact bilaterally SENSORIUM/ORIENTATION: Yes alert, Yes oriented to person, Yes oriented to place and Yes oriented to time Course 2 Vital Signs: Vital signs: Vital Signs Temperature 98.1 F 10/10/23 09:40 Pulse Rate 94 10/10/23 09:40 Respiratory Rate 16 10/10/23 09:40 Blood Pressure 124/80 10/10/23 09:40 Pulse Oximetry 95 10/10/23 09:40 Oxygen Delivery Me thod Room Air 10/10/23 09:00 MDM - Dental/Oral Medical Decision Making Patient will be given IM antibiotics prior to discharge. He will be placed on oral antibiotics and given dental resources. Recommend prompt dental follow-up. At this point nothing to suggest deep space infection or cavernous sinus thrombosis. Return to ED precautions given. Differential Diagnosis Likely gingival abscess, dental caries, toothache and dental abscess No radiology studies performed this visit Discharge Plan Discharge Patient Disposition: Home Clinical Impression: Dental abscess Condition: Stable Prescriptions: New clindamycin HCl 300 mg capsule 300 mg PO Q6H 7 Days Qty: 28 0RF No Action losartan 25 mg tablet 25 mg PO DAILY Qty: 30 0RF olanzapine 2.5 mg tablet 2.5 mg PO DAILY PRN (Reason: paranoia) Qty: 30 0RF clonazepam 0.5 mg tablet 0.5 mg PO BID PRN (Reason: anxiety) Qty: 45 0RF Rx Instructions: Quantity of #45 to last a month. citalopram 40 mg tablet 40 mg PO QAM 30 Days Qty: 30 1RF buspirone 10 mg tablet 10 mg PO BID Qty: 60 1RF gabapentin 600 mg tablet 600 mg PO QID Qty: 120 1RF Discharge Orders: Discharge ED (Routine); Ordered 10/10/23 Ordered By: Sofy Vasques Referrals: Garrett Castillo LICENSED OCCUPATIONAL THERAPY ASSISTANT [Primary Care Provider] - Patient Instructions: Dental Abscess (ED) Activity Restrictions/Additional Instructions: As we discussed you need to fill your antibiotics and start them immediately. You need to follow-up with a dentist as soon as possible. You need to return to the emergency department for worsening pain, swelling, severe headache, fevers, visual changes, or any other concerns you may have. Coding Level of Care Code ED Hunting Guide for Sukumar Betts
[2023-10-10] MEDS: cefTRIAXone 1,000 MG in water for injection-sterile 2.1 ML 2.1 MG IM (09:27)
[2023-10-10 09:40] VITALS: BP 124/80; PULSE 94; RESP 16; TEMP 36.7; O2SAT 95
== END 2023-10-10 09:26 | disposition home or self-care (01) ==
PROVIDERS: Emergency Provider Physician Assistant; PCP Clinical Nurse Specialist Adult Health
DX: K04.7 Periapical abscess without sinus (principal); Z87.891 Personal history of nicotine dependence
CPT/HCPCS: 96372; 99284; J0696

== ENCOUNTER 2023-12-05 21:49 | Emergency (ER) | payer MEDICAID, SELFPAY ==
[2023-12-05 22:08] VITALS: BP 125/85; PULSE 99; RESP 18; TEMP 36.8; O2SAT 98; BMI 36.9
--- NOTE | 2023-12-05 22:40 | PC.NURSE ---
Pt sent home with Hydrocodone 5/325 per PA Diana orders.
[2023-12-05] MEDS: amoxicillin-clav 875-125 mg Tablet 1 TAB PO (22:46)
[2023-12-05] MEDS: dexamethasone 10 mg/mL INJ IM (22:50)
--- NOTE | 2023-12-05 22:50 | W.ED.DENTAL ---
HPI - Dental/Oral General: Chief complaint: Dental/Oral Stated complaint: abcess in Left side of mouth Time Seen by Provider: 12/05/23 22:13 Source: patient Mode of arrival: ambulatory Limitations: no limitations History of Present Illness: Patient is a 32-year-old male presenting with left-sided facial swelling and pain, states he has been doing this for a while but is acutely worsening today. He finished a round of clindamycin recently, and is currently undergoing periodic dental work to have all of his teeth pulled and replaced. States he has an appointment coming up, and cannot have this done with an infection. He is not reporting any trouble breathing, difficulty swallowing, fevers, vomiting, or other symptoms. He does note that the pain is starting to spread infraorbitally and towards his ear. He states it does seem to be improved with NSAIDs use. MD Complaint: tooth pain Duration: constant Severity: severe Relieving factors: NSAIDs Context: history of dental caries and poor dental care Associated symptoms: Reports ear or mastoid pain; Denies fever(s) Related Data Previous Rx's Medication Instructions Recorded losartan 25 mg tablet 25 mg PO DAILY #30 tabs 08/18/23 buspirone 10 mg tablet 10 mg PO BID #60 tabs 12/01/23 citalopram 40 mg tablet 40 mg PO QAM 30 days #30 tabs 12/01/23 clonazepam 0.5 mg tablet 0.5 mg PO BID PRN anxiety #45 tabs 12/01/23 gabapentin 600 mg tablet 600 mg PO QID #120 tabs 12/01/23 propranolol 10 mg tablet 10 mg PO BID #60 tabs 12/01/23 amoxicillin 875 mg-potassium 1 tab PO BID 10 days #20 tabs 12/05/23 clavulanate 125 mg tablet prednisone 20 mg tablet 60 mg (3 x 20 mg) PO ONCE 5 days 12/05/23 #15 tabs Allergies Allergy/AdvReac Type Severity Reaction Status Date / Time Penicillins Allergy Intermediate Hives Verified 12/05/23 22:12 Review of Systems General: Reports: 10 or more systems reviewed and unremarkable except in HPI and below Const: Denies: fever(s), chills or fatigue Eyes: Denies: change in vision ENMT: Reports: mouth pain, dental pain, ear or mastoid pain and sinus pain; Denies: throat pain or nasal discharge Card: Denies: chest pain, palpitations, swelling of feet/ankles or lightheadedness Resp: Denies: dyspnea, productive cough or wheezing GI: Denies: abdominal pain, nausea, vomiting, diarrhea or constipation : Denies: flank pain, difficulty urinating, dysuria or urinary frequency Musc: Denies: neck pain, back pain or joint pain Skin/Breast: Denies: rash Neuro: Denies: headache(s), numbness in extremities or weakness in extremities PFSH ED PFSH: Medical History Generalized anxiety disorder Nicotine use disorder Major depressive disorder in remission Quit drug use in remote past Psychiatric care Major depression Surgical History No pertinent past surgical history Family History Mother Cancer breast cancer Father Psychiatric illness Social History Smoking and tobacco/nicotine status: never used tobacco/nicotine Quit status (tobacco/nicotine): has quit using Former quit date comment: 4 year history of smoking Alcohol intake: never Substance/Drug Use: former Household members: family Housing: House Marital status: Unknown Highest education level completed: Some College, No Degree Physical Exam Const: COMMON NORMALS: no acute distress and no limitations GENERAL APPEARANCE: cooperative, comfortable and well developed ORIENTATION/CONSCIOUSNESS: Yes awake HENMT: COMMON NORMALS: normocephalic, atraumatic and hearing grossly normal bilaterally HEAD & SCALP: normocephalic and atraumatic MOUTH: Normal oral and palatal mucosa present TEETH & GINGIVA: Yes abnormal tooth and associated gingiva upper left tender, Yes caries, Yes gingiva abnormal edematous and tender, Yes multiple restorations and Yes poor dentition THROAT: posterior oropharynx normal and tonsils normal OTHER: Moderate tenderness to palpation of the left face, and there is notable swelling Eye: COMMON NORMALS: Equal, round and reactive pupils present, EOMs intact bilaterally and conjunctivae normal CONJUNCTIVA: Yes conjunctivae normal PUPIL: Yes Equal, round and reactive pupils present Neck/C-Spine: COMMON NORMALS: full ROM, supple and no JVD Resp: COMMON NORMALS: normal respiratory effort, No retractions, No use of accessory muscles and clear to auscultation bilaterally AUSCULTATION: clear to auscultation bilaterally Cardio: COMMON NORMALS: no JVD, regular rate, regular rhythm, No clicks present (Cardio), No murmurs present (Cardio) and No rub (Cardio) RATE: regular rate RHYTHM: regular rhythm Extremity: COMMON NORMALS: normal to inspection, full ROM and capillary refill normal Psych: COMMON NORMALS: mental status grossly normal and Normal thought process present THOUGHT PROCESS: Normal thought process present Skin: COMMON NORMALS: no rashes or lesions noted GENERAL SKIN EXAM: no rashes or lesions noted Course Vital Signs: Vital signs: Vital Signs Temperature 98.2 F 12/05/23 22:08 Pulse Rate 99 12/05/23 22:08 Respiratory Rate 18 12/05/23 22:08 Blood Pressure 125/85 12/05/23 22:08 Pulse Oximetry 98 12/05/23 22:08 Oxygen Delivery Me thod Room Air 12/05/23 22:08 MDM - Dental/Oral Medical Decision Making Patient recently finished round of antibiotics for dental abscess, he is currently undergoing dental care to have all of his teeth pulled and replaced. There is evidence that he is still having a dental infection, and though he realizes his allergies say penicillin, he states he has never had an allergic reaction to this. Because of this we will try Augmentin, will also give him steroid shot short course of steroids to help with the swelling. 1 dose of hydrocodone given to the patient to take at home, and he is instructed to continue follow-ups with a dentist. With any trouble breathing or significant worsening of symptoms of this likeness, he is instructed to return. He agrees with discharge home this time. No radiology studies performed this visit Discharge Plan Discharge Patient Disposition: Home Clinical Impression: Dental abscess Condition: Stable Prescriptions: New prednisone 20 mg tablet 60 mg PO ONCE 5 Days Qty: 15 0RF amoxicillin-pot clavulanate 875-125 mg tablet 1 tab PO BID 10 Days Qty: 20 0RF No Action losartan 25 mg tablet 25 mg PO DAILY Qty: 30 0RF citalopram 40 mg tablet 40 mg PO QAM 30 Days Qty: 30 1RF buspirone 10 mg tablet 10 mg PO BID Qty: 60 1RF clonazepam 0.5 mg tablet 0.5 mg PO BID PRN (Reason: anxiety) Qty: 45 1RF Rx Instructions: Quantity of #45 to last a month. propranolol 10 mg tablet 10 mg PO BID Qty: 60 1RF gabapentin 600 mg tablet 600 mg PO QID Qty: 120 1RF Discharge Orders: Discharge ED (Routine); Ordered 12/05/23 Ordered By: Flynn Ortiz Referrals: Garrett Castillo, TRANSMISSION SYSTEM OPERATOR [Primary Care Provider] - Patient Instructions: Dental Abscess (ED) Activity Restrictions/Additional Instructions: Antibiotics as prescribed. Steroids. Keep follow-up with dentist for dental work. Continue taking ibuprofen at home. Return with any new or worsening. If you develop any rash, may take Benadryl as instructed. Coding Level of Care Code ED Scanner Operator for Sukumar Betts
[2023-12-05 22:52] VITALS: BP 112/79; PULSE 96; RESP 16; O2SAT 98
== END 2023-12-05 23:12 | disposition home or self-care (01) ==
PROVIDERS: Emergency Provider Physician Assistant; PCP Clinical Nurse Specialist Adult Health
DX: K04.7 Periapical abscess without sinus (principal); Z87.891 Personal history of nicotine dependence
CPT/HCPCS: 96372; 99284; J1100

== ENCOUNTER 2024-01-23 18:07 | Emergency (ER) | payer MEDICAID, SELFPAY ==
[2024-01-23 18:08] VITALS: BP 123/63; PULSE 119; RESP 18; TEMP 36.7; O2SAT 96; BMI 38.4
--- NOTE | 2024-01-23 18:15 | ECG_ITS ---
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 Measurements Intervals [place] Rate: 117 P: 46 NH: 182 QRS: 99 QRSD: 114 T: 28 QT: 351 QTc: 490 Interpretive Statements SINUS TACHYCARDIA BORDERLINE RIGHT AXIS DEVIATION [QRS AXIS > 90] MODERATE INTRAVENTRICULAR CONDUCTION DELAY [110+ ms QRS DURATION] Compared to ECG 03/28/2018 05:18:43 Intraventricular conduction delay now present Sinus rhythm no longer present Electronically Signed On 01-24-2024 21:36:21 BRICKMASON SUPERVISOR by Adam Arevalo M.D. [email or web address] adri
--- NOTE | 2024-01-23 18:18 | XRR_ITS ---
PROCEDURE INFORMATION: Exam: XR Chest Exam date and time: 01/23/2024 6:23 PM Age: 33 years old Clinical indication: Pain; Chest pressure; Additional info: Cp TECHNIQUE: Imaging protocol: Radiologic exam of the chest. Views: 1 view. COMPARISON: CR XR chest 2V* [id number] 06/21/2023 8:57 AM FINDINGS: Lungs: Poor inspiratory effort. Bibasilar atelectasis. Pleural spaces: Unremarkable. No pleural effusion. No pneumothorax. Heart/Mediastinum: Unremarkable. No cardiomegaly. Bones/joints: Unremarkable. XR/XR chest 1V portable [id number] IMPRESSION: As above. Little
--- NOTE | 2024-01-23 18:25 | ED_ITS ---
HPI - SOB/Dyspnea 2 General: Chief Complaint: Shortness of Breath/Dyspnea Stated Complaint: sob Time Seen by Provider: 01/23/24 18:08 Source: patient and EMS Mode of arrival: EMS Limitations: no limitations History of Present Illness: HPI Narrative: 33-year-old male who states to me that calvin morales has been having ongoing shortness of breath and chest pain for 6 months. He states he is seen multiple times and was been able to get him answer states that this morning started having worsening shortness of breath again patient here is 94% on room air states has been having sharp chest pains as well he denies any cough or fever denies any worse improved factors Associated symptoms: Reports chest pain; Deny abdominal pain, fever(s), nausea or vomiting Related Data Previous Rx's Medication Instructions Recorded losartan 25 mg tablet 25 mg PO DAILY #30 tabs 08/18/23 buspirone 10 mg tablet 10 mg PO BID #60 tabs 12/01/23 citalopram 40 mg tablet 40 mg PO QAM 30 days #30 tabs 12/01/23 propranolol 10 mg tablet 10 mg PO BID #60 tabs 12/01/23 gabapentin 600 mg tablet 600 mg PO QID #120 tabs 01/16/24 clonazepam 0.5 mg tablet 0.5 mg PO BID PRN anxiety #45 tabs 01/23/24 Allergies Allergy/AdvReac Type Severity Reaction Status Date / Time Penicillins Allergy Intermediate Hives Verified 12/29/23 10:59 Review of Systems 2 Const: Denies: fever(s), chills, body aches or change in appetite ENMT: Denies: throat pain or dental pain Card: Reports: chest pain Resp: Reports: dyspnea GI: Denies: abdominal pain, nausea, vomiting or diarrhea Musc: Denies: neck pain or back pain Skin/Breast: Denies: rash Neuro: Denies: headache(s) PFSH ED 2 PFSH: Medical History Generalized anxiety disorder Nicotine use disorder Major depressive disorder in remission Quit drug use in remote past Psychiatric care Major depression Surgical History No pertinent past surgical history Family History Mother Cancer breast cancer Father Psychiatric illness Social History Smoking and tobacco/nicotine status: never used tobacco/nicotine Quit status (tobacco/nicotine): has quit using Former quit date comment: 4 year history of smoking Alcohol intake: never Substance/Drug Use: former Household members: family Housing: House Marital status: Unknown Highest education level completed: Some College, No Degree Physical Exam 2 Const: COMMON NORMALS: no acute distress, patient oriented x3 and healthy appearing HENMT: COMMON NORMALS: normocephalic and atraumatic HEAD & SCALP: n ormocephalic and atraumatic Eye: COMMON NORMALS: conjunctivae normal CONJUNCTIVA: Yes conjunctivae normal Neck/C-Spine: COMMON NORMALS: full ROM and supple Chest: COMMONS NORMALS: normal inspection of the chest Resp: COMMON NORMALS: normal respiratory effort, No retractions, No use of accessory muscles and clear to auscultation bilaterally AUSCULTATION: clear to auscultation bilaterally Cardio: COMMON NORMALS: regular rhythm and No murmurs present (Cardio) R ATE: tachycardic RHYTHM: regular rhythm GI: COMMON NORMALS: non-tender Extremity: COMMON NORMALS: normal to inspection and full ROM Neuro: COMMON NORMALS: patient oriented x3, moves all extremities and no focal motor deficits Psych: COMMON NORMALS: mental status grossly normal, Normal thought process present and cooperative THOUGHT PROCESS: Normal thought process present Skin: COMMON NORMALS: no rashes or lesions noted and no wounds GENERAL SKIN EXAM: no rashes or lesions noted Course 2 Vital Signs: Vital signs: Vital Signs Temperature 98.1 F 01/23/24 18:08 Pulse Rate 119 H 01/23/24 18:08 Respiratory Rate 18 01/23/24 18:08 Blood Pressure 123/63 01/23/24 18:08 Pulse Oximetry 96 01/23/24 18:08 Oxygen Delivery Me thod Room Air 01/23/24 18:08 MDM - SOB/Dyspnea Medical Decision Making Patient presents here shortness of breath no chest pain is atypical in nature D- dimer here is negative no signs of pulm embolism troponin is negative no signs of ACS patient stable for discharge at this time he is follow-up with PCP return if worsening they understand agree to plan. Medical Records I reviewed the patient's medical records. Lab Data I reviewed the patient's lab results. 01/23/24 19:05 01/23/24 19:05 Labs/Radiology: Radiology Impressions Chest X-Ray 01/23/24 18:18 IMPRESSION: As above. [facility] Laboratory Results WBC 8.21 10^3/uL (3.29-11.43) 01/23/24 19:05 RBC 4.38 10^6/uL (3.85-5.65) 01/23/24 19:05 Hgb 13.40 g/dL (11.27-16.99) 01/23/24 19:05 Hct 39.2 % (37-53) 01/23/24 19:05 MCV 89.5 fl (82-101) 01/23/24 19:05 MCH 30.6 pg (27-33) 01/23/24 19:05 MCHC 34.2 g/dL (30-55) 01/23/24 19:05 RDW 12.8 % (12.1-15.1) 01/23/24 19:05 Plt Count 298 10^3/cmm (157-399) 01/23/24 19:05 MPV 9.9 fL (7.4-10.4) 01/23/24 19:05 Neut % (Auto) 67.1 % 01/23/24 19:05 Lymph % (Auto) 20.7 % 01/23/24 19:05 Fergus % (Auto) 8.4 % 01/23/24 19:05 Eos % (Auto) 2.9 % 01/23/24 19:05 Baso % (Auto) 0.7 % 01/23/24 19:05 Neut # (Auto) 5.50 10^3/uL (1.8-7.7) 01/23/24 19:05 Lymph # (Auto) 1.7 10^3/uL (0.8-4.8) 01/23/24 19:05 Fergus # (Auto) 0.7 10^3/uL (0.2-0.9) 01/23/24 19:05 Eos # (Auto) 0.2 10^3/uL (0.0-0.8) 01/23/24 19:05 Baso # (Auto) 0.1 10^3/uL (0.0-0.1) 01/23/24 19:05 Nucleated RBC % (auto) 0 % 01/23/24 19:05 Nucleated RBCs # 0.0 /100WBC 01/23/24 19:05 D-Dimer 0.30 ug/mLFEU (0-0.59) 01/23/24 19:05 Sodium 139 mmol/L (136-145) 01/23/24 19:05 Potassium 3.9 mmol/L (3.5-5.1) 01/23/24 19:05 Chloride 102 mmol/L (98-107) 01/23/24 19:05 Carbon Dioxide 29 mmol/L (22-29) 01/23/24 19:05 Anion Gap 11.9 (5-19) 01/23/24 19:05 BUN 10 mg/dL (6-20) 01/23/24 19:05 Creatinine 0.9 mg/dL (0.7-1.2) 01/23/24 19:05 GFR Calculation 97.2 mL/min (90-130) 01/23/24 19:05 Glucose 107 mg/dL (65-115) 01/23/24 19:05 Calculated Osmolality 288 mOsm/kg (285-295) 01/23/24 19:05 Calcium 9.0 mg/dL (8.5-10.5) 01/23/24 19:05 Total Bilirubin 0.3 mg/dL (0.15-1.2) 01/23/24 19:05 AST 13 U/L (0-40) 01/23/24 19:05 ALT 16 U/L (0-41) 01/23/24 19:05 Alkaline Phosphatase 65 U/L (40-130) 01/23/24 19:05 Troponin T Baseline < 6 ng/L (0-15) 01/23/24 19:05 NT-Pro-B Natriuret Pep < 36 pg/mL (0-125) 01/23/24 19:05 Total Protein 6.0 g/dL (6.6-8.7) L 01/23/24 19:05 Albumin 4.2 g/dL (3.5-5.2) 01/23/24 19:05 Globulin 1.8 g/dL (1.3-4.6) 01/23/24 19:05 All radiology interpretation(s) finalized by discharge EKG Data EKG 1: I personally reviewed and interpreted this EKG as follows: EKG Interpretation Date: 01/23/24 EKG interpretation time: 18:15 Interpretation: sinus tach hr [address] elevation qrs 114 qtc 420 Discharge Plan Discharge Patient Disposition: Home Clinical Impression: Chest pain, Breath shortness Condition: Stable Prescriptions: No Action losartan 25 mg tablet 25 mg PO DAILY Qty: 30 0RF citalopram 40 mg tablet 40 mg PO QAM 30 Days Qty: 30 1RF buspirone 10 mg tablet 10 mg PO BID Qty: 60 1RF propranolol 10 mg tablet 10 mg PO BID Qty: 60 1RF gabapentin 600 mg tablet 600 mg PO QID Qty: 120 1RF clonazepam 0.5 mg tablet 0.5 mg PO BID PRN (Reason: anxiety) Qty: 45 1RF Rx Instructions: Quantity of #45 to last a month. Discharge Orders: Discharge ED (Routine); Ordered 01/23/24 Ordered By: Eleazar Meza Referrals: Garrett Castillo PHYSICALLY IMPAIRED TEACHER [Primary Care Provider] - Discharge Diet: Advance as tolerated Discharge Activity: Resume usual activity Patient Instructions: Chest Pain (ED), Shortness of Breath (ED) Coding Level of Care Code ED Shuttle Driver for Sukumar Betts
[2024-01-23 19:16] LABS: Basophils # 0.1 10^3/uL (0.0-0.1); Basophils % 0.7 %; Eosinophils # 0.2 10^3/uL (0.0-0.8); Eosinophils % 2.9 %; Hematocrit 39.2 % (37-53); Lymphocytes # 1.7 10^3/uL (0.8-4.8); Lymphocytes % 20.7 %; Mean Corpuscular HGB Conc 34.2 g/dL (30-55); Mean Corpuscular Hemoglobin 30.6 pg (27-33); Mean Corpuscular Volume 89.5 fl (82-101); Mean Platelet Volume 9.9 fL (7.4-10.4); Monocytes # 0.7 10^3/uL (0.2-0.9); Monocytes % 8.4 %; Neutrophils % 67.1 %; Nucleated Red Blood Cells % 0 %; Platelet Count 298 10^3/cmm (157-399); Red Blood Count 4.38 10^6/uL (3.85-5.65); Red Cell Distribution Width 12.8 % (12.1-15.1); White Blood Count 8.21 10^3/uL (3.29-11.43)
[2024-01-23] MEDS: LORazepam 2 mg/mL INJ 1 mL 1 MG IVP (19:22)
[2024-01-23 19:39] LABS: Troponin(5th) Baseline < 6 ng/L (0-15)
[2024-01-23 19:51] LABS: Alanine Aminotransferase 16 U/L (0-41); Albumin Level 4.2 g/dL (3.5-5.2); Alkaline Phosphatase 65 U/L (40-130); Anion Gap 11.9 (5-19); Aspartate Amino Transferase 13 U/L (0-40); Blood Urea Nitrogen 10 mg/dL (6-20); Carbon Dioxide 29 mmol/L (22-29); Chloride 102 mmol/L (98-107); Globulin 1.8 g/dL (1.3-4.6); Glomerular Filtration Rate 97.2 mL/min (90-130); Glucose 107 mg/dL (65-115); NT Pro B Type Natriuretic Pept < 36 pg/mL (0-125); Osmolality Calculated 288 mOsm/kg (285-295); Potassium 3.9 mmol/L (3.5-5.1); Sodium 139 mmol/L (136-145); Total Bilirubin 0.3 mg/dL (0.15-1.2)
[2024-01-23 20:19] VITALS: PULSE 110; RESP 16; O2SAT 95
[2024-01-23 21:19] VITALS: PULSE 94; RESP 14; O2SAT 98
--- NOTE | 2024-01-27 01:23 | DCPLANNER ---
Message sent to Cardiology for follow up
== END 2024-01-23 20:30 | disposition home or self-care (01) ==
PROVIDERS: Emergency Provider Emergency Medicine; PCP Clinical Nurse Specialist Adult Health
DX: R07.9 Chest pain, unspecified (principal); R06.02 Shortness of breath; Z87.891 Personal history of nicotine dependence
CPT/HCPCS: 36415; 71045; 80053; 83880; 84484; 85025; 85378; 93005; 96374; 99285; J2060

== ENCOUNTER 2024-03-28 21:37 | Emergency (ER) | payer SELFPAY ==
[2024-03-28 21:44] VITALS: BP 132/82; PULSE 91; RESP 18; TEMP 36.5; O2SAT 97; BMI 34.7
--- NOTE | 2024-03-28 23:53 | CTR_ITS ---
PROCEDURE INFORMATION: Exam: CT Head Without Contrast Exam date and time: 03/28/2024 11:59 PM Age: 33 years old Clinical indication: Pain; Headache; Other: Infected teeth; Additional info: POWELL, wobbly , worse in am, dental infections TECHNIQUE: Imaging protocol: Computed tomography of the head without contrast. Radiation optimization: All CT scans at this facility use at least one of these dose optimization techniques: automated exposure control; mA and/or kV adjustment per patient size (includes targeted exams where dose is matched to clinical indication); or iterative reconstruction. COMPARISON: CT neck w con* [id number] 03/21/2022 9:52 PM RADIATION DOSE METRICS: Total DLP (mGy-cm): 1387.78 FINDINGS: Limitations: The images are degraded due to motion artifacts. Within this limitation: Brain: No acute intra- or extra axial fluid collections are identified. The basal cisterns are patent. No mass effect or midline shift is seen. The jimenez-white matter differentiation is normal. Borderline low lying cerebellar tonsils. Cerebral ventricles: The ventricles are of normal size, shape, and morphology. Paranasal sinuses: There is mild paranasal sinus disease, predominantly with minimal mucosal thickening in the ethmoid air cells. The remaining paranasal sinuses appear grossly clear. Mastoid air cells: Small amount of cerumen is present in the external auditory canal mixed space s. The mastoid air cells appear grossly clear. Orbital cavities: The orbits appear normal. Bones: No acute calvarial fracture is identified. Soft tissues: No soft tissue abnormalities identified. CT/CT head wo con* [id number] IMPRESSION: No evidence of acute intracranial hemorrhage, mass effect, or midline shift.
--- NOTE | 2024-03-28 23:53 | W.ED.GENADLT ---
HPI - General Adult General: Chief complaint: Headache Stated complaint: headache severe pain behind eye Time Seen by Provider: 03/28/24 23:22 Source: patient Mode of arrival: ambulatory Limitations: no limitations History of Present Illness: Patient is a 33-year-old male who presents to the ED today with a complaint of widespread dental pain. Patient states he has known severe widespread periodontal disease. He is in the process of trying to get all of his teeth pulled. He does have a dental follow-up appointment scheduled in 2 weeks. He states over the past several weeks he has been having tremendous amounts of dental pain. He occasionally will feel like his left sinus is swollen and painful. He does not have this complaint currently. He has not been running fevers. He also has a complaint of a headache. He does feel like headache is worse in the morning. He has occasionally felt wobbly . He is ambulatory here without difficulty or assistance. Onset (ago): week(s) Location: head, face and mouth Relieving factors: none Exacerbating factors: none Associated symptoms: Reports headache(s); Deny chest pain, confusion, dyspnea, malaise, nausea, palpitations, syncope or vomiting Treatments prior to arrival: none Related Data Previous Rx's ?Medication ?Instructions ?Recorded losartan 25 mg tablet 25 mg PO DAILY #30 tabs 08/18/23 baclofen 10 mg tablet 10 mg PO .HS #30 tabs 03/27/24 buspirone 15 mg tablet 15 mg PO BID #60 tabs 03/27/24 citalopram 40 mg tablet 40 mg PO QAM 30 days #30 tabs 03/27/24 clonazepam 0.5 mg tablet 0.5 mg PO BID PRN anxiety #45 tabs 03/27/24 cyproheptadine 4 mg tablet 4 mg PO Q6H #30 tabs 03/27/24 gabapentin 600 mg tablet 600 mg PO QID #120 tabs 03/27/24 propranolol 10 mg tablet 10 mg PO BID #60 tabs 03/27/24 amoxicillin 875 mg-potassium 1 tab PO BID #14 tabs 03/29/24 clavulanate 125 mg tablet Allergies Allergy/AdvReac Type Severity Reaction Status Date / Time Penicillins Allergy Intermediate Hives Verified 03/28/24 21:49 Review of Systems Const: Denies: fever(s), chills, body aches, fatigue or malaise Eyes: Reports: photophobia; Denies: change in vision, blurry vision or seeing flashes ENMT: Reports: dental pain and sinus pain (occasionally; none currently); Denies: throat pain, uvular edema, enlarged tonsils, odynophagia, swelling of lips/tongue, oral sores, ear or mastoid pain, nasal discharge or nasal congestion Card: Denies: chest pain, palpitations, syncope or pre-syncope Resp: Denies: dyspnea GI: Denies: nausea or vomiting Musc: Denies: neck pain Neuro: Reports: headache(s); Denies: confusion PFSH ED PFSH: Medical History Generalized anxiety disorder Nicotine use disorder Major depressive disorder in remission Quit drug use in remote past Psychiatric care Major depression Surgical History No pertinent past surgical history Family History Mother Cancer breast cancer Father Psychiatric illness Social History Smoking and tobacco/nicotine status: never used tobacco/nicotine Quit status (tobacco/nicotine): has quit using Former quit date comment: 4 year history of smoking Alcohol intake: never Substance/Drug Use: former Household members: family Housing: House Marital status: Unknown Highest education level completed: Some College, No Degree Physical Exam Const: COMMON NORMALS: no acute distress, average body habitus, patient oriented x3, no limitations, healthy appearing, alert and well nourished GENERAL APPEARANCE: cooperative ORIENTATION/CONSCIOUSNESS: Yes awake, Yes oriented to person, Yes oriented to place and Yes oriented to time HENMT: COMMON NORMALS: normocephalic and atraumatic HEAD & SCALP: normal to inspection, normocephalic and atraumatic FACE & SINUS: normal facial exam, sinuses nontender and face symmetric; no sinus tenderness, no erythema and no edema MOUTH: Normal oral and palatal mucosa present and lip normal TEETH & GINGIVA: Yes caries, Yes poor dentition and Yes other (widespread severe decay) THROAT: posterior oropharynx normal and tonsils normal; no uvular edema Eye: COMMON NORMALS: Equal, round and reactive pupils present and EOMs intact bilaterally GENERAL EYE: appearance normal, both eyes and all related structures and normal light reflex PUPIL: Yes Equal, round and reactive pupils present DIRECT OPHTHALMOSCOPY: Yes normal light reflex Neck/C-Spine: COMMON NORMALS: full ROM and no lymphadenopathy GENERAL: Yes normal visual inspection Resp: COMMON NORMALS: normal respiratory effort and clear to auscultation bilaterally AUSCULTATION: clear to auscultation bilaterally Cardio: COMMON NORMALS: regular rate and regular rhythm RATE: regular rate RHYTHM: regular rhythm Neuro: ABDULAZIZ COMA SCALE: document GCS findings Abdulaziz coma scale eye opening: Spontaneous [place] coma scale verbal response: Orientated [place] coma scale motor response: Obey commands Abdulaziz coma scale total score: 15 COMMON NORMALS: patient oriented x3, CN's II-XII intact bilaterally, moves all extremities, no focal motor deficits, no sensory deficits noted and gait normal SENSORIUM/ORIENTATION: Yes alert, Yes oriented to person, Yes oriented to place and Yes oriented to time SPEECH: speech normal GAIT: Yes Normal gait present Course Vital Signs: Vital signs: Vital Signs Temperature 97.7 F 03/28/24 21:44 Pulse Rate 91 03/28/24 21:44 Respiratory Rate 18 03/28/24 21:44 Blood Pressure 132/82 03/28/24 21:44 Pulse Oximetry 97 03/28/24 21:44 Oxygen Delivery Me thod Room Air 03/28/24 21:44 MDM - General Adult Medical Decision Making Vital signs are stable. CT head is unremarkable. Patient will be placed on antibiotics. Recommend he keep his dental follow-up in 2 weeks as scheduled. Return ED precautions given. Otherwise I would like him to follow-up primary care next week for repeat/further evaluation. Medical Records I reviewed the patient's medical records. Lab Data Radiology Impressions Head CT 03/28/24 23:53 IMPRESSION: No evidence of acute intracranial hemorrhage, mass effect, or midline shift. All radiology interpretation(s) finalized by discharge Discharge Plan Discharge Patient Disposition: Home Clinical Impression: Pain, dental Condition: Stable Prescriptions: New amoxicillin-pot clavulanate 875-125 mg tablet 1 tab PO BID Qty: 14 0RF No Action clonazepam 0.5 mg tablet 0.5 mg PO BID PRN (Reason: anxiety) Qty: 45 1RF Rx Instructions: Quantity of #45 to last a month. citalopram 40 mg tablet 40 mg PO QAM 30 Days Qty: 30 1RF baclofen 10 mg tablet 10 mg PO .HS Qty: 30 1RF buspirone 15 mg tablet 15 mg PO BID Qty: 60 1RF gabapentin 600 mg tablet 600 mg PO QID Qty: 120 1RF cyproheptadine 4 mg tablet 4 mg PO Q6H Qty: 30 1RF propranolol 10 mg tablet 10 mg PO BID Qty: 60 1RF losartan 25 mg tablet 25 mg PO DAILY Qty: 30 0RF Discharge Orders: Discharge ED (Routine); Ordered 03/29/24 Ordered By: Sofy Vasques Referrals: Garrett Castillo STAIN DIPPER [Primary Care Provider] - Patient Instructions: Toothache (ED), Dental Abscess Print Language: Icelandic Coding Level of Care Code ED Gauger Chief for Sukumar Betts
[2024-03-29 01:25] VITALS: BP 130/93; PULSE 91; O2SAT 98
== END 2024-03-29 01:17 | disposition home or self-care (01) ==
PROVIDERS: Emergency Provider Physician Assistant; PCP Clinical Nurse Specialist Adult Health
DX: K08.89 Other specified disorders of teeth and supporting structures (principal); Z87.891 Personal history of nicotine dependence
CPT/HCPCS: 70450; 99284

== ENCOUNTER 2024-04-23 08:34 | Emergency (ER) | payer SELFPAY ==
[2024-04-23 08:49] VITALS: BP 131/97; PULSE 100; RESP 16; TEMP 36.8; O2SAT 99; BMI 38.7
--- NOTE | 2024-04-23 10:04 | W.ED.DENTAL ---
HPI - Dental/Oral General: Chief complaint: Dental/Oral Stated complaint: dental pain & Head pain Time Seen by Provider: 04/23/24 08:59 Source: patient Mode of arrival: ambulatory Limitations: no limitations History of Present Illness: Patient is a 33-year-old male with history of severe periodontal disease here with complaints of dental pain. He states he has an upcoming appointment with Dr. Burgos on to begin dental extractions. He is also been told he will have to see oral maxillary surgery for some of his other extractions. He has not noticed any facial swelling or neck swelling. No trouble breathing, speaking, or swallowing. MD Complaint: tooth pain Onset (ago): week(s) Duration: constant Severity: moderate Relieving factors: nothing Exacerbating factors: nothing Context: history of dental caries and poor dental care Associated symptoms: Reports no associated symptoms; Denies ear or mastoid pain or fever(s) Treatment prior to arrival: none Related Data Previous Rx's ?Medication ?Instructions ?Recorded losartan 25 mg tablet 25 mg PO DAILY #30 tabs 08/18/23 baclofen 10 mg tablet 10 mg PO .HS #30 tabs 03/27/24 buspirone 15 mg tablet 15 mg PO BID #60 tabs 03/27/24 citalopram 40 mg tablet 40 mg PO QAM 30 days #30 tabs 03/27/24 clonazepam 0.5 mg tablet 0.5 mg PO BID PRN anxiety #45 tabs 03/27/24 gabapentin 600 mg tablet 600 mg PO QID #120 tabs 03/27/24 propranolol 10 mg tablet 10 mg PO BID #60 tabs 03/27/24 cyproheptadine 4 mg tablet 4 mg PO Q6H #30 tabs 04/16/24 clindamycin HCl 300 mg capsule 300 mg PO Q6H 7 days #28 caps 04/23/24 Allergies Allergy/AdvReac Type Severity Reaction Status Date / Time Penicillins Allergy Intermediate Hives Verified 03/28/24 21:49 Review of Systems Const: Denies: fever(s), chills, body aches, fatigue or malaise ENMT: Reports: dental pain; Denies: ear or mastoid pain, nasal discharge or nasal congestion Card: Denies: chest pain Resp: Denies: dyspnea GI: Denies: nausea or vomiting Musc: Denies: neck pain, back pain, extremity pain or joint swelling Skin/Breast: Denies: rash Neuro: Denies: headache(s) or dizziness PFSH ED PFSH: Medical History Generalized anxiety disorder Nicotine use disorder Major depressive disorder in remission Quit drug use in remote past Psychiatric care Major depression Surgical History No pertinent past surgical history Family History Mother Cancer breast cancer Father Psychiatric illness Social History Smoking and tobacco/nicotine status: never used tobacco/nicotine Quit status (tobacco/nicotine): has quit using Former quit date comment: 4 year history of smoking Alcohol intake: never Substance/Drug Use: former Household members: family Housing: House Marital status: Unknown Highest education level completed: Some College, No Degree Physical Exam Const: COMMON NORMALS: no acute distress, average body habitus, no limitations, healthy appearing, alert and well nourished ORIENTATION/CONSCIOUSNESS: Yes awake, Yes oriented to person, Yes oriented to place and Yes oriented to time HENMT: COMMON NORMALS: normocephalic, atraumatic and Normal external nose present HEAD & SCALP: normal to inspection, normocephalic and atraumatic FACE & SINUS: normal facial exam and sinuses nontender; no erythema, no edema and no Facial tenderness on exam of face and sinuses NOSE: Normal external nose present MOUTH: Normal oral and palatal mucosa present, lip normal, tongue normal and Normal salivary glands and ducts present; no audible dysphonia and no drooling TEETH & GINGIVA: Yes caries and Yes poor dentition THROAT: posterior oropharynx normal and tonsils normal OTHER: severe widespread periodontal disease Neck/C-Spine: GENERAL: No anterior neck swelling and No submandibular swelling Resp: COMMON NORMALS: normal respiratory effort and clear to auscultation bilaterally AUSCULTATION: clear to auscultation bilaterally Cardio: COMMON NORMALS: regular rate and regular rhythm RATE: regular rate RHYTHM: regular rhythm Extremity: GENERAL: Yes normal exam except as noted Neuro: ABDULAZIZ COMA SCALE: document GCS findings [place] coma scale eye opening: Spontaneous [place] coma scale verbal response: Orientated Abdulaziz coma scale motor response: Obey commands [place] coma scale total score: 15 COMMON NORMALS: CN's II-XII intact bilaterally, moves all extremities, no focal motor deficits, no sensory deficits noted and gait normal SENSORIUM/ORIENTATION: Yes alert, Yes oriented to person, Yes oriented to place and Yes oriented to time Skin: COMMON NORMALS: no rashes or lesions noted GENERAL SKIN EXAM: no rashes or lesions noted Course Vital Signs: Vital signs: Vital Signs Temperature 98.2 F 04/23/24 08:49 Pulse Rate 100 04/23/24 08:49 Respiratory Rate 16 04/23/24 08:49 Blood Pressure 131/97 04/23/24 08:49 Pulse Oximetry 99 04/23/24 08:49 Oxygen Delivery Me thod Room Air 04/23/24 08:49 MDM - Dental/Oral Medical Decision Making Patient will be placed on antibiotics. He was given IM antibiotics prior to discharge. Recommend plan to follow-up with dentist on . Return precautions given. Differential Diagnosis Likely dental caries, toothache, dental abscess and fracture of tooth Medical Records I reviewed the patient's medical records. No radiology studies performed this visit Discharge Plan Discharge Patient Disposition: Home Clinical Impression: Toothache, Dental caries Condition: Stable Prescriptions: New clindamycin HCl 300 mg capsule 300 mg PO Q6H 7 Days Qty: 28 0RF Discontinued amoxicillin-pot clavulanate 875-125 mg tablet 1 tab PO BID Qty: 14 0RF No Action clonazepam 0.5 mg tablet 0.5 mg PO BID PRN (Reason: anxiety) Qty: 45 1RF Rx Instructions: Quantity of #45 to last a month. citalopram 40 mg tablet 40 mg PO QAM 30 Days Qty: 30 1RF baclofen 10 mg tablet 10 mg PO .HS Qty: 30 1RF buspirone 15 mg tablet 15 mg PO BID Qty: 60 1RF gabapentin 600 mg tablet 600 mg PO QID Qty: 120 1RF propranolol 10 mg tablet 10 mg PO BID Qty: 60 1RF losartan 25 mg tablet 25 mg PO DAILY Qty: 30 0RF cyproheptadine 4 mg tablet 4 mg PO Q6H Qty: 30 1RF Discharge Orders: Discharge ED (Routine); Ordered 04/23/24 Ordered By: Sofy Vasques Referrals: Chapman,Garrett L, ENROLLMENT PROCESSOR [Primary Care Provider] - Patient Instructions: Dental Caries (Cavities), Dental Abscess (ED), Dental Abscess Print Language: Romanian Coding Level of Care Code ED [id number] Architect for Sukumar Betts
[2024-04-23] MEDS: clindamycin 150 mg/mL SDV 6 mL 600 MG IM (10:52)
== END 2024-04-23 11:06 | disposition home or self-care (01) ==
PROVIDERS: Emergency Provider Physician Assistant; PCP Clinical Nurse Specialist Adult Health
DX: K02.9 Dental caries, unspecified (principal); K08.89 Other specified disorders of teeth and supporting structures; Z87.891 Personal history of nicotine dependence
CPT/HCPCS: 96372; 99284; J3490

== ENCOUNTER 2024-07-24 23:28 | Inpatient (IN) | payer SELFPAY ==
[2024-07-24 23:29] VITALS: BP 166/85; PULSE 92; RESP 20; TEMP 36.3; O2SAT 97; BMI 28.7
--- NOTE | 2024-07-24 23:45 | PC.NURSE ---
Pt unable to answer suicidal risk assessment due to being under the influence.
[2024-07-24] MEDS: LORazepam 2 mg Tablet PO (23:48)
[2024-07-25] VITALS (16 sets, daily range): BP systolic 93–147; BP diastolic 50–83; PULSE 74–118; RESP 14–18; TEMP 36.6–36.9; O2SAT 93–99
[2024-07-25 00:04] LABS: Basophils # 0.1 10^3/uL (0.0-0.1); Basophils % 0.7 %; Eosinophils # 0.1 10^3/uL (0.0-0.8); Eosinophils % 1.2 %; Hematocrit 42.9 % (37-53); Lymphocytes # 2.4 10^3/uL (0.8-4.8); Lymphocytes % 24.3 %; Mean Corpuscular HGB Conc 34.7 g/dL (30-55); Mean Corpuscular Hemoglobin 30.2 pg (27-33); Mean Platelet Volume 9.4 fL (7.4-10.4); Monocytes # 0.8 10^3/uL (0.2-0.9); Monocytes % 8.5 %; Neutrophils # 6.44 10^3/uL (1.8-7.7); Neutrophils % 64.9 %; Nucleated Red Blood Cells % 0 %; Platelet Count 395 10^3/cmm (157-399); Red Blood Count 4.93 10^6/uL (3.85-5.65); Red Cell Distribution Width 11.9 % (12.1-15.1); White Blood Count 9.92 10^3/uL (3.29-11.43)
--- NOTE | 2024-07-25 00:21 | PC.NURSE ---
[facility] Pt served with copy of 96 [facility] by this RN and Security. Pt is unoriented and unable to follow directions. Pt flailing extremities, speaking rapidly but unable to form sentences. Pt looked at security and stated that [employer] goat is an asshole . Pt repeatedly standing up and stumbling around room without purpose. Pt walked directly into wall, physician notified. Pt standing up and upper body slumping forward to where his arms hang to floor. When asked what drugs he had ingested pt stated I smoked a joint with papers dipped in fentanyl my weed had ketamine in it there was some residue in the bottle before they filled it .
[2024-07-25 00:33] LABS: Acetaminophen < 5.0 ug/mL (10-30); Alanine Aminotransferase 21 U/L (0-41); Albumin Level 4.2 g/dL (3.5-5.2); Alcohol Level < 10 mg/dL (0-10); Alkaline Phosphatase 71 U/L (40-130); Anion Gap 20.3 (5-19); Aspartate Amino Transferase 27 U/L (0-40); Blood Urea Nitrogen 23 mg/dL (6-20); Calcium 9.3 mg/dL (8.5-10.5); Carbon Dioxide 22 mmol/L (22-29); Chloride 99 mmol/L (98-107); Creatinine Clr Calc Pharmacy 108.1986; Globulin 3.1 g/dL (1.3-4.6); Glomerular Filtration Rate 77.1 mL/min (90-130); Glucose 87 mg/dL (65-115); Osmolality Calculated 289 mOsm/kg (285-295); Potassium 3.3 mmol/L (3.5-5.1); Salicylate < 0.3 mg/dL (3-10); Sodium 138 mmol/L (136-145); Thyroid Stimulating Hormone 3.82 uIU/mL (0.27-4.20); Total Bilirubin 0.5 mg/dL (0.15-1.2); Total Protein 7.3 g/dL (6.6-8.7)
[2024-07-25] MEDS: ketamine 100 mg/mL Inj 5 mL 362.9 MG IM (00:35)
[2024-07-25] MEDS: midazolam 1 mg/mL INJ 2 mL 5 MG IM (01:42)
--- NOTE | 2024-07-25 01:55 | PC.NURSE ---
Restraints @ 0155 This RN was called to ER for escalation of pt behavior despite medications. Upon entering room, pt was screaming unintelligible statements at staff. Pt was continuously trying to get out of bed despite staff reorientation. Pt was not able to stay still, making erratic movements with all extremities. Pt was placed into restraint bed @ 0155. ER physician at bedside.
[2024-07-25 03:09] LABS: Bilirubin Urine 1+ (Negative); Blood Urine 1+ (Negative); Glucose Urine UA Negative (Normal); Ketones Urine 1+ (Negative); Leukocyte Esterase Urine Trace (Negative); Nitrate Urine Negative (Negative); Protein Urine 2+ (Negative); Specific Gravity, Urine 1.024 (1.005-1.030); Urine Appearance Cloudy (CLEAR); Urine Color Dark Yellow (Yellow)
[2024-07-25] MEDS: LORazepam 1 MG/0.5 ML injection 4 MG IM (03:11)
[2024-07-25 03:14] LABS: Add Urine Microscopic? YES; Bacteria Urine 1+ /hpf; Squamous Epithelial Cell Urine 0-5 /hpf (0-5); WBC Urine >100 /hpf (0-5)
[2024-07-25 03:16] LABS: Amphetamines Screen Urine Positive (Negative); Barbiturates Screen Urine Negative (Negative); Benzodiazepines Screen Urine Positive (Negative); Cocaine Screen Urine Negative (Negative); Opiate Screen Urine Negative (Negative); PCP Screen Urine Negative (Negative); THC Screen Urine Negative (Negative)
[2024-07-25 03:25] LABS: Add Urine Culture? Yes; UA Slide Review UA Slide Review Perf
--- NOTE | 2024-07-25 03:37 | PC.NURSE ---
Restraints @ 0323 After IM Ativan, pt poor behavior continued to escalate rapidly. Pt was attempting to get out of bed continuously while being re-directed. Pt not purposefully violent at this time, but erratic movements of swinging extremities and kicking legs posing risk of injury to pt and staff. Pt placed back into violent restraints at 0323. Physician notified.
[2024-07-25] MEDS: midazolam 1 mg/mL INJ 2 mL 8 MG IM (03:41)
--- NOTE | 2024-07-25 04:00 | PC.NURSE ---
Security Search Security search of pt belongings produced empty wrapper for substance Hydroxymitregy 9.
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
--- NOTE | 2024-07-25 06:35 | PC.NURSE ---
0635 pt's right hand removed from restraints. Dr Huang aware.
[2024-07-25] MEDS: BuSPIRONE 10 mg Tablet 15 MG PO (17:50)
[2024-07-25] MEDS: propranolol 20 mg Tablet 10 MG PO (17:51)
[2024-07-25] MEDS: gabapentin 400 mg Capsule 800 MG PO ×2 (17:52→21:25)
[2024-07-25] MEDS: baclofen 10 mg Tablet 20 MG PO (21:25)
[2024-07-25] MEDS: trazodone 50 mg Tablet PO ×2 (21:26→23:00)
[2024-07-25] MEDS: OLANZapine 5 mg ODT PO (23:00)
[2024-07-25] MEDS: nicotine 4 mg lozenge MUCOUS MEM (23:00)
[2024-07-25] MEDS: CLONazepam 0.5 mg Tablet PO (23:00)
[2024-07-26] MEDS: trazodone 50 mg Tablet PO ×2 (02:16→20:21)
[2024-07-26] MEDS: hyDROXYzine 25 mg Capsule 50 MG PO ×2 (02:16→20:21)
[2024-07-26 06:00] VITALS: BP 100/60; PULSE 76; RESP 16
[2024-07-26 08:23] VITALS: BP 100/60
[2024-07-26] MEDS: losartan 50 mg Tablet 25 MG PO (08:23)
[2024-07-26] MEDS: citalopram 20 mg Tablet 40 MG PO (08:24)
[2024-07-26] MEDS: BuSPIRONE 10 mg Tablet 15 MG PO ×2 (08:25→17:41)
[2024-07-26] MEDS: propranolol 20 mg Tablet 10 MG PO ×2 (08:25→17:41)
[2024-07-26] MEDS: gabapentin 400 mg Capsule 800 MG PO ×4 (08:25→20:21)
--- NOTE | 2024-07-26 10:04 | P.NPUHP_ITS ---
Providers/Chief Complaint 2 Admitting Physician: Abhinav Salazar MD Primary Care Provider: Garrett Castillo Chief Complaint: disorganized thinking and disorganized behavior HPI NPU History of Present Illness Abhilash Ibarra is a 33 year old male who presented to the emergency department accompanied by police after the patient had admitted to using fentanyl, ketamine, and methamphetamine. He had been extremely agitated and had been speaking incoherently and engaging in bizarre behavior including attempting to wear a plastic shopping bag on his leg like a pair of pants. He had destroyed his own car windows. He had been allegedly responding to things that were not present according to the father and the aircraft dispatcher that arrived at the home prior to his arrival at [facility]. The patient was unable to provide any reasonable history today other than to state that he was told by his father to come here. Previous records were reviewed. Patient had recently been seen on an outpatient basis here at [facility] with a prior history of polysubstance abuse, major depressive disorder, and generalized anxiety disorder. Psychiatric history: He has 1 previous inpatient hospitalization here in January 2023. Previous records indicated at diagnosis of schizoaffective disorder, PTSD, alcohol use disorder and methamphetamine use disorder. Substance abuse history: He denied any history of substance abuse treatment. There is records of nicotine use, alcohol use, and methamphetamine use as well. His urine drug screen was positive for amphetamine and benzodiazepines. Medical history: None reported Allergies: Penicillin Medications: Celexa 40 mg daily, Klonopin 0.5 mg twice a day, BuSpar 15 mg twice a day, gabapentin 800 mg 4 times a day, cyproheptadine 4 mg at night, propranolol 10mg bid, baclofen 20 mg at night, Family history: depression-mother Legal history: unknown Social History: Per previous records, the patient lives with his father here in [place]. He had reported having graduated high school past. Excerpt from [facility] evaluation from 03/21/23 below. [facility] History and Physical Time In: 12:00 Time Out: 13:00 Chief Complaint: Would like medication refills. History of Present Illness: [facility]. He tells me he was living in [place] for the last 5 years and came to [facility] to help his dad move into a new home. States he is an only child and he is the only one that is able to help his dad move. He states he is here temporarily and plans to return to [place]. He states he may return as soon as April. He indicates he has been on the same medication for the last 5 years including clonazepam 1 mg 3 times a day, Celexa 40 mg daily, gabapentin 300 mg 3 times a day. He states since he has been in [place] which has been a little over a year's time he has received prescription refills of these medication from primary care provider, Garrett Castillo and then he was following up with [facility] outpatient mental health department until they closed. He states after they closed he received 5 months of prescription refills. Today he would like to continue his same prescriptions but is willing to reduce the clonazepam as he acknowledges he has been doing well and he could most likely do well with less. Abhilash denies any depression today. He states his mood is good. No suicidal thoughts. No homicidal thoughts. He denies auditory or visual hallucinations. He does report anxiety. States anxiety has been well-controlled with his medication. Abhilash denies any drug use. He is willing for a urine drug screen today. He tells me he sleeps well at night. No history of skyler or psychosis. History Past Psychiatric History: Abhilash reports he was hospitalized January 2023. He states he was using an [id number] Phrenzie Chill in combination with his clonazepam and states that caused him to go into withdrawal. He stopped that medication at that time. He verbalizes today that he has been taken Celexa 40 mg daily, gabapentin 300 mg 3 times a day, and clonazepam 1 mg 3 times a day for the last 5 years and has been stable on that medication. He reports previous diagnosis of depression and anxiety. He has received treatment at [facility] in the past. Records indicate a diagnosis of schizoaffective disorder, PTSD, alcohol use disorder, nicotine use disorder, cannabis use disorder, and a history of amphetamine use disorder. Abhilash disagrees with previous diagnosis of schizoaffective disorder. He minimizes previous documented drug and alcohol use. No history of suicide attempts. Family History: Reports his aunt has problems but he does not know her specific diagnosis. There is question that his great grandparents possibly committed suicide. His mom is depressed. His dad has anxiety. Past Medical History: Abhilash initially denies having a primary care provider. He states he recently moved here from [place] to help his dad move but also states he is here temporarily. Further conversation he has seen Garrett Castillo nurse practitioner for 3 visits at which time she has prescribed mental health prescriptions. He denies any current physical health conditions. Denies previous injuries or surgeries. Tells me he has been referred to a neurologist due to pain on the left side of his body that comes and goes. Substance Use History: Abhilash reports nicotine use starting in his late 20s. Currently uses via vape. I spent 5 minutes providing smoking cessation counseling. We talked about history of use, current usage, prior attempts at quitting, and psychological barriers to quitting. I gauged his desire to quit and he is not ready at this time. Abhilash denies marijuana use initially. Further into the discussion he reports a history of marijuana use but states he has not used in many years. Abhilash denies alcohol use initially. Further into the discussion he reports a history of heavy drinking for a very short term. Comments he has not used alcohol in a very long time. States he never went to rehab. States he drank for short time after his mom . Abhilash initially denies any drug use. Later in the discussion after confronted with documented records he reports a history of some use. Tells me he is only used methamphetamine twice in the past. Social History: Abhilahs reports he was living in [facility] for the last 5 years. He states he came to [place] to help his dad move. He comments he is the only son and thus he needed to come and help his dad. Tells me he may not be here in April as he may go back to [place]. He is single. He has no kids. 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 He states if he returns to [place] he is able to get his job back. Graduated high school and has some college. Denies any legal history. Denies a history of physical, emotional, sexual abuse. Meds NPU Home Medications ?Medication ?Instructions ?Recorded ?Confirmed ?Last Taken ?Type cyproheptadine 4 mg tablet 4 mg PO Q6H #30 tabs 07/25/24 Unknown Rx losartan 25 mg tablet 25 mg PO DAILY #30 tabs 04/2207/25/24 Unknown Rx propranolol 10 mg tablet 10 mg PO BID #60 tabs 07/25/24 Unknown Rx baclofen 20 mg tablet 20 mg PO .HS #30 tabs 07/25/24 Unknown Rx gabapentin 800 mg tablet 800 mg PO QID #120 tabs 05/0 08/1507/25/24 Unknown Rx azithromycin 250 mg tablet See Rx Instructions PO .COM PLEX #6 07/18/24 07/25/24 Unknown Rx tabs buspirone 15 mg tablet 15 mg PO BID #60 tabs 07/25/24 Unknown Rx citalopram 40 mg tablet 40 mg PO QAM 30 days #30 tab s 07/19/24 07/25/24 Unknown Rx clonazepam 0.5 mg tablet 0.5 mg PO BID PRN anxiety #6 0 tabs 07/19/24 07/25/24 Unknown Rx Allergies Allergy/AdvReac Type Severity Reaction Status Date / Time Penicillins Allergy Intermediate Hives Verified 07/19/24 13:35 PFSH NPU 2 PFSH: Medical History (Updated 07/26/24 @ 13:01 by Abhinav Salazar MD) Essential hypertension Generalized anxiety disorder Nicotine use disorder Major depressive disorder in remission Quit drug use in remote past Psychiatric care Major depression Surgical History No pertinent past surgical history Family History Mother Cancer breast cancer Father Psychiatric illness Social History Smoking and tobacco/nicotine status: current every day tobacco/nicotine user Quit status (tobacco/nicotine): has quit using Former quit date comment: 4 year history of smoking Alcohol intake: never Substance/Drug Use: former Household members: family Housing: House Marital status: Unknown Highest education level completed: Some College, No Degree Mental Status Exam 2 MSE Comments: This is a well-nourished, well-developed white male in hospital scrubs with limited grooming and no eye contact. He was difficult to arouse and then promptly went back to asleep. No abnormal movements except for mild psychomotor retardation. He was noncooperative with exam. His speech was slurred, nonproductive and nonsensical. Mood not endorsed. Affect was flat. Thought process was disorganized. Thought content: Patient did not endorse suicidal or homicidal ideation. Bizarre thinking was evident, he did appear to be responding to internal stimuli. Attention and concentration are impaired. He is alert and oriented to person only. Insight and judgment are impaired and impulse control is impaired. Vitals/I&O/Wt Last Vital Signs Temp 98 F 07/25/24 14:00 Pulse 76 07/26/24 06:00 Resp 16 07/26/24 06:00 BP 100/60 07/26/24 08:23 Pulse Ox 95 07/25/24 19:39 O2 Del Method Room Air 07/25/24 13:38 Weight last 48 hrs Weight 90.718 kg Data NPU 07/24/24 23:59 07/24/24 23:59 Micro: Microbiology 07/25/24 02:54 Urine Culture - Preliminary Urine,Clean Catch Microbiology 07/25/24 02:54 Urine,Clean Catch Urine Culture - Preliminary A&P Assessment and plan (1) Methamphetamine-induced psychotic disorder: (2) Suicidal ideation: (3) Major depression: (4) Chest pain: (5) Generalized anxiety disorder: Plan This is a 33 year old white male with a long history of addiction, depression and anxiety who presents involuntarily with bizarre behavior with use of stimulants and ketamine. 1.? Restart outpatient medications. 2.? Encourage individual, group, and milieu therapy. 3.? Continue q-15-minute checks for safety. 4.? Recommend sober living treatment at the highest level of care to which the patient is willing to commit. 5. Will attempt to gather collateral information PDMP PDMP Reviewed: Not Reviewed Involuntary Hold Information 2 Hold Status: Legal Status: 96 Hour Hold Date/Time Hold Expires: 07/30/24@2343 96 Hour Hold: 96 Hour Involuntary Admission: No Attestations NPU 2 Medical Necessity Statement*: Inpatient hospitalization is medically necessary and the clinically appropriate intervention at this time. We will monitor medications and make changes as indicated. Patient will be in the hospital for over two midnights. His likely length of stay is 2-4 days. Coding Level of Care Code Acute Code for Chg Fwd Diagnoses Methamphetamine-induced psychotic disorder F15.959 Suicidal ideation R45.851 Episode of recurrent major depressive disorder, unspecified depression episode severity F33.9 Major depression recurrence: recurrent Active/Remission status: currently active Major depression episode severity: unspecified Chest pain R07.9 Generalized anxiety disorder F41.1
[2024-07-26] MEDS: nicotine 2 mg Gum BUCCAL (13:18)
[2024-07-26 14:00] VITALS: BP 97/65; PULSE 87; RESP 18; TEMP 36.6; O2SAT 96
[2024-07-26] MEDS: baclofen 10 mg Tablet 20 MG PO (20:21)
[2024-07-26] MEDS: CLONazepam 0.5 mg Tablet PO (20:21)
[2024-07-26 20:30] VITALS: BP 96/60; PULSE 76; RESP 18; TEMP 36.9; O2SAT 96
[2024-07-27 06:00] VITALS: BP 114/78; PULSE 89; RESP 17; TEMP 36.4; O2SAT 95
[2024-07-27] MEDS: losartan 50 mg Tablet 25 MG PO (09:05)
[2024-07-27] MEDS: gabapentin 400 mg Capsule 800 MG PO ×4 (09:05→20:27)
[2024-07-27] MEDS: BuSPIRONE 10 mg Tablet 15 MG PO ×2 (09:05→17:25)
[2024-07-27] MEDS: citalopram 20 mg Tablet 40 MG PO (09:06)
[2024-07-27] MEDS: propranolol 20 mg Tablet 10 MG PO ×2 (09:06→17:24)
[2024-07-27] MEDS: nicotine 4 mg lozenge MUCOUS MEM (09:22)
[2024-07-27 14:00] VITALS: BP 101/64; PULSE 82; RESP 18; TEMP 36.8; O2SAT 97
--- NOTE | 2024-07-27 16:38 | P.NPUPN_ITS ---
Subjective NPU 2 Subjective: 33-year-old male who presented with psyc hosis leading to significant destruction of property and some disorganized behavior. The patient had reported that he felt much better today. He had reported having little recall of the events that had occurred after he had taken a pill that he states was thought to be helpful for sleep initially. He states that it was given to him as a sleep agent but states that he felt that it was a stimulant. He had reported having used methamphetamine 1 time before in the past and reported that he felt that this pill was a combination of a stimulant and possibly ketamine. The patient had continued to report feeling tired. He was redirectable on the milieu today and reported that he had been doing well with his anxiety and his current medications until he had been hospitalized a few days ago. Mental Status Exam 2 MSE Comments: This is a well-nourished, well-developed white male in hospital scrubs with limited grooming and fair eye contact. His gait was within normal limits. There was no evidence of any abnormal involuntary motor movements, tics, or tremors appreciated. His speech was normal in rate, rhythm, and prosody. His mood was described as better. His affect appeared less restricted and mood- congruent. His thought process was linear, logical, and goal-directed. His thought content revealed no suicidal or homicidal ideation. There was no evidence of delusional thinking. He did not appear to be responding to internal stimuli. His recent and remote memory were intact. His attention span appeared much improved. His insight was fair. His judgment was improving. His impulse control appeared much better. Vitals/I&O/Wt Last Vital Signs Temp 97.6 F 07/27/24 06:00 Pulse 89 07/27/24 06:00 Resp 17 07/27/24 06:00 BP 114/78 07/27/24 06:00 Pulse Ox 95 07/27/24 06:00 O2 Del Method Room Air 07/27/24 06:00 Data NPU 07/24/24 23:59 07/24/24 23:59 Micro: Microbiology 07/25/24 02:54 Urine Culture - Final Urine,Clean Catch Microbiology 07/25/24 02:54 Urine,Clean Catch Urine Culture - Final A&P Assessment and plan (1) Methamphetamine-induced psychotic disorder: (2) Generalized anxiety disorder: (3) Major depression: Plan 33-year-old male admitted initially presenting psychotic after taking an unknown quantity of some pill that likely was a stimulant showing significant improvement 2 days after admission on the NPU. #1. Restarted medications including Celexa 40 mg daily and Klonopin 0.5 mg twice a day along with BuSpar 15 mg twice a day. #2. Continue to encourage individual milieu and group therapy #3 Continue to encourage sobriety to the highest level care to which the patient is willing to commit. PDMP PDMP Reviewed: Not Reviewed Involuntary Hold Information 2 Hold Status: Legal Status: 96 Hour Hold Date/Time Hold Expires: 07/30/24@2345 96 Hour Hold: 96 Hour Involuntary Admission: No Attestations NPU 2 Medical Necessity Statement*: Inpatient hospitalization is medically necessary and the clinically appropriate intervention at this time. We will monitor medications and make changes as indicated. His likely length of stay is 1-2 days. Coding Level of Care Code Acute Code for Chg Fwd Diagnoses Methamphetamine-induced psychotic disorder F15.959 Generalized anxiety disorder F41.1 Episode of recurrent major depressive disorder, unspecified depression episode severity F33.9 Major depression recurrence: recurrent Active/Remission status: currently active Major depression episode severity: unspecified
[2024-07-27] MEDS: CLONazepam 0.5 mg Tablet PO (17:25)
[2024-07-27 20:26] VITALS: BP 87/58; PULSE 80; RESP 16; TEMP 36.5; O2SAT 98
[2024-07-27] MEDS: baclofen 10 mg Tablet 20 MG PO (20:27)
[2024-07-28 06:00] VITALS: BP 114/73; PULSE 100; RESP 16; TEMP 37.2; O2SAT 96
[2024-07-28 09:08] VITALS: BP 114/73
[2024-07-28] MEDS: CLONazepam 0.5 mg Tablet PO (09:08)
[2024-07-28] MEDS: losartan 50 mg Tablet 25 MG PO (09:08)
[2024-07-28] MEDS: citalopram 20 mg Tablet 40 MG PO (09:08)
[2024-07-28] MEDS: gabapentin 400 mg Capsule 800 MG PO ×2 (09:09→13:16)
[2024-07-28] MEDS: BuSPIRONE 10 mg Tablet 15 MG PO (09:09)
--- NOTE | 2024-07-28 11:53 | PC.NURSE ---
Held Propranolol this am d/t lower bp. Dr. mitchell.
[2024-07-28] MEDS: nicotine 4 mg lozenge MUCOUS MEM (12:31)
[2024-07-28 14:00] VITALS: BP 105/79; PULSE 91; RESP 18; TEMP 36.8; O2SAT 99
--- NOTE | 2024-07-28 14:10 | W.PM.NPUDCS ---
Diagnoses at Discharge Discharge Diagnosis (1) Methamphetamine-induced psychotic disorder: Status: Acute (2) Generalized anxiety disorder: Status: Acute (3) Major depression: Status: Acute Qualifiers: Major depression recurrence: recurrent Active/Remission status: currently active Major depression episode severity: unspecified Qualified Code(s): F33.9 - Major depressive disorder, recurrent, unspecified Reason for Visit Reason for Visit: disorganized thinking and disorganized behavior Brief History: History of Present Illness Abhilash Ibarra is a 33 year old male who presented to the emergency department accompanied by police after the patient had admitted to using fentanyl, ketamine, and methamphetamine. He had been extremely agitated and had been speaking incoherently and engaging in bizarre behavior including attempting to wear a plastic shopping bag on his leg like a pair of pants. He had destroyed his own car windows. He had been allegedly responding to things that were not present according to the father and the e commerce specialist that arrived at the home prior to his arrival at [facility]. The patient was unable to provide any reasonable history today other than to state that he was told by his father to come here. Previous records were reviewed. Patient had recently been seen on an outpatient basis here at [facility] with a prior history of polysubstance abuse, major depressive disorder, and generalized anxiety disorder. Psychiatric history: He has 1 previous inpatient hospitalization here in January 2023. Previous records indicated at diagnosis of schizoaffective disorder, PTSD, alcohol use disorder and methamphetamine use disorder. Substance abuse history: He denied any history of substance abuse treatment. There is records of nicotine use, alcohol use, and methamphetamine use as well. His urine drug screen was positive for amphetamine and benzodiazepines. Medical history: None reported Allergies: Penicillin Medications: Celexa 40 mg daily, Klonopin 0.5 mg twice a day, BuSpar 15 mg twice a day, gabapentin 800 mg 4 times a day, cyproheptadine 4 mg at night, propranolol 10mg bid, baclofen 20 mg at night, Family history: depression-mother Legal history: unknown Social History: Per previous records, the patient lives with his father here in [place]. He had reported having graduated high school past. Excerpt from [facility] evaluation from 03/21/23 below. [facility] History and Physical Time In: 12:00 Time Out: 13:00 Chief Complaint: Would like medication refills. History of Present Illness: Abhilash presents to [facility] for a new patient visit. He tells me he was living in [place] for the last 5 years and came to [facility] to help his dad move into a new home. States he is an only child and he is the only one that is able to help his dad move. He states he is here temporarily and plans to return to [place]. He states he may return as soon as April. He indicates he has been on the same medication for the last 5 years including clonazepam 1 mg 3 times a day, Celexa 40 mg daily, gabapentin 300 mg 3 times a day. He states since he has been in [place] which has been a little over a year's time he has received prescription refills of these medication from primary care provider, Garrett Castillo and then he was following up with [facility] outpatient mental health department until they closed. He states after they closed he received 5 months of prescription refills. Today he would like to continue his same prescriptions but is willing to reduce the clonazepam as he acknowledges he has been doing well and he could most likely do well with less. Abhilash denies any depression today. He states his mood is good. No suicidal thoughts. No homicidal thoughts. He denies auditory or visual hallucinations. He does report anxiety. States anxiety has been well-controlled with his medication. Abhilash denies any drug use. He is willing for a urine drug screen today. He tells me he sleeps well at night. No history of skyler or psychosis. History Past Psychiatric History: Abhilash reports he was hospitalized January 2023. He states he was using an [id number] Phrenzie Chill in combination with his clonazepam and states that caused him to go into withdrawal. He stopped that medication at that time. He verbalizes today that he has been taken Celexa 40 mg daily, gabapentin 300 mg 3 times a day, and clonazepam 1 mg 3 times a day for the last 5 years and has been stable on that medication. He reports previous diagnosis of depression and anxiety. He has received treatment at [facility] in the past. Records indicate a diagnosis of schizoaffective disorder, PTSD, alcohol use disorder, nicotine use disorder, cannabis use disorder, and a history of amphetamine use disorder. Abhilash disagrees with previous diagnosis of schizoaffective disorder. He minimizes previous documented drug and alcohol use. No history of suicide attempts. Family History: Reports his aunt has problems but he does not know her specific diagnosis. There is question that his great grandparents possibly committed suicide. His mom is depressed. His dad has anxiety. Past Medical History: Abhilash initially denies having a primary care provider. He states he recently moved here from [place] to help his dad move but also states he is here temporarily. Further conversation he has seen Garrett Castillo nurse practitioner for 3 visits at which time she has prescribed mental health prescriptions. He denies any current physical health conditions. Denies previous injuries or surgeries. Tells me he has been referred to a neurologist due to pain on the left side of his body that comes and goes. Substance Use History: Abhilash reports nicotine use starting in his late 20s. Currently uses via vape. I spent 5 minutes providing smoking cessation counseling. We talked about history of use, current usage, prior attempts at quitting, and psychological barriers to quitting. I gauged his desire to quit and he is not ready at this time. Abhilash denies marijuana use initially. Further into the discussion he reports a history of marijuana use but states he has not used in many years. Abhilash denies alcohol use initially. Further into the discussion he reports a history of heavy drinking for a very short term. Comments he has not used alcohol in a very long time. States he never went to rehab. States he drank for short time after his mom . Abhilash initially denies any drug use. Later in the discussion after confronted with documented records he reports a history of some use. Tells me he is only used methamphetamine twice in the past. Social History: Abhilash reports he was living in [facility] for the last 5 years. He states he came to [place] to help his dad move. He comments he is the only son and thus he needed to come and help his dad. Tells me he may not be here in April as he may go back to [place]. He is single. He has no kids. 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 He states if he returns to [place] he is able to get his job back. Graduated high school and has some college. Denies any legal history. Denies a history of physical, emotional, sexual abuse. Hospital Course Hospital Course The patient tested positive for amphetamines on admission. He had been extremely tired and minimally communicative for the first 2 days but appeared to show great improvement on 07/27/2024. He had indicated that he had been given a pill that was unidentified to him and stated that it had likely contained a stimulant and reported that he had been extremely confused. He had acknowledged feeling better over the next couple of days after restarting his medications. During the hospitalization, the patient had routine laboratory studies which were within normal limits except for a few outliers.? Additionally, there was a general medical evaluation which was also within normal limits and revealed no new acute processes.? At the time of discharge, lethality was denied and psychosis was resolving.? Mood and anxiety were well managed.? The patient endorsed a plan to avoid all drugs of abuse and follow up with the aftercare recommendations of the treatment team.? The patient was evaluated and deemed to be absent credible lethality and had achieved the maximum benefit from an inpatient hospitalization, and so was discharged. ?No changes overall in medication was made at discharge. Involuntary Hold Information Hold Status: Legal Status: 96 Hour Hold Date/Time Hold Expires: 07/30/24@2345 96 Hour Hold: 96 Hour Involuntary Admission: No Mental Status Exam MSE Comments: This is a well-nourished, well-developed white male in hospital scrubs with improved grooming and fair eye contact. His gait was within normal limits. There was no evidence of any abnormal involuntary motor movements, tics, or tremors appreciated. His speech was normal in rate, rhythm, and prosody. His mood was described as better. His affect appeared slightly constricted. His thought process was linear, logical, and goal-directed. His thought content revealed no suicidal or homicidal ideation. There was no evidence of delusional thinking. He did not appear to be responding to internal stimuli. His recent and remote memory were intact. His attention span appeared much improved. His insight was fair. His judgment was improving. His impulse control appeared much better. Discharge Data Studies Completed and Pending: Laboratory Results WBC 9.92 10^3/uL (3.2 9-11.43) 07/24/24 23:59 RBC 4.93 10^6/uL (3.8 5-5.65) 07/24/24 23:59 Hgb 14.90 g/dL (11.27 -16.99) 07/24/24 23:59 Hct 42.9 % (37-53) 07/24/24 23:59 MCV 87.0 fl (82-101) 07/24/24 23:59 MCH 30.2 pg (27-33) 07/24/24 23:59 MCHC 34.7 g/dL (30-55) 07/24/24 23:59 RDW 11.9 % (12.1-15.1 ) L 07/24/24 23:59 Plt Count 395 10^3/cmm (157 -399) 07/24/24 23:59 MPV 9.4 fL (7.4-10.4) 07/24/24 23:59 Neut % (Auto) 64.9 % 07/24/24 23:59 Lymph % (Auto) 24.3 % 07/24/24 23:59 Juncos % (Auto) 8.5 % 07/24/24 23:59 Eos % (Auto) 1.2 % 07/24/24 23:59 Baso % (Auto) 0.7 % 07/24/24 23:59 Neut # (Auto) 6.44 10^3/uL (1.8 -7.7) 07/24/24 23:59 Lymph # (Auto) 2.4 10^3/uL (0.8- 4.8) 07/24/24 23:59 Juncos # (Auto) 0.8 10^3/uL (0.2- 0.9) 07/24/24 23:59 Eos # (Auto) 0.1 10^3/uL (0.0- 0.8) 07/24/24 23:59 Baso # (Auto) 0.1 10^3/uL (0.0- 0.1) 07/24/24 23:59 Nucleated RBC % (a uto) 0 % 07/24/24 23:59 Nucleated RBCs # 0.0 /100WBC 07/24/24 23:59 Sodium 138 mmol/L (136-1 45) 07/24/24 23:59 Potassium 3.3 mmol/L (3.5-5 .1) L 07/24/24 23:59 Chloride 99 mmol/L (98-107 ) 07/24/24 23:59 Carbon Dioxide 22 mmol/L (22-29) 07/24/24 23:59 Anion Gap 20.3 (5-19) H 07/24/24 23:59 BUN 23 mg/dL (6-20) H 07/24/24 23:59 Creatinine 1.1 mg/dL (0.7-1. 2) 07/24/24 23:59 GFR Calculation 77.1 mL/min (90-1 30) L 07/24/24 23:59 Glucose 87 mg/dL (65-115) 07/24/24 23:59 Calculated Osmolal ity 289 mOsm/kg (285- 295) 07/24/24 23:59 Calcium 9.3 mg/dL (8.5-10 .5) 07/24/24 23:59 Total Bilirubin 0.5 mg/dL (0.15-1 .2) 07/24/24 23:59 AST 27 U/L (0-40) 07/24/24 23:59 ALT 21 U/L (0-41) 07/24/24 23:59 Alkaline Phosphata se 71 U/L (40-130) 07/24/24 23:59 Total Protein 7.3 g/dL (6.6-8.7 ) 07/24/24 23:59 Albumin 4.2 g/dL (3.5-5.2 ) 07/24/24 23:59 Globulin 3.1 g/dL (1.3-4.6 ) 07/24/24 23:59 TSH 3.82 uIU/mL (0.27 -4.20) 07/24/24 23:59 Urine Color Dark yellow (Yel low) A 07/25/24 02:54 Urine Appearance Cloudy (CLEAR) A 07/25/24 02:54 Urine pH 6.0 (5-7) 07/25/24 02:54 Ur Specific Gravit y 1.024 (1.005-1.0 30) 07/25/24 02:54 Urine Protein 2+ (Negative) A 07/25/24 02:54 Urine Glucose (UA) Negative (Normal ) 07/25/24 02:54 Urine Ketones 1+ (Negative) H 07/25/24 02:54 Urine Blood 1+ (Negative) A 07/25/24 02:54 Urine Nitrate Negative (Negati ve) 07/25/24 02:54 Urine Bilirubin 1+ (Negative) H 07/25/24 02:54 Urine Urobilinogen 1.0 mg/dL (Negati ve) 07/25/24 02:54 Ur Leukocyte Hellen ase Trace (Negative) A 07/25/24 02:54 Urine RBC 11-20 /hpf (0-2) H 07/25/24 02:54 Urine WBC >100 /hpf (0-5) H 07/25/24 02:54 Ur Squamous Epith Cells 0-5 /hpf (0-5) 07/25/24 02:54 Amorphous Sediment Not Reportable 07/25/24 02:54 Urine Bacteria 1+ /hpf (NONE) H 07/25/24 02:54 Hyaline Casts 45.50 /lpf 07/25/24 02:54 Salicylates < 0.3 mg/dL (3-10 ) L 07/24/24 23:59 Urine Opiates Scre en Negative ng/mL (N egative) 07/25/24 02:54 Acetaminophen < 5.0 ug/mL (10-3 0) L 07/24/24 23:59 Ur Barbiturates Sc reen Negative ng/mL (N egative) 07/25/24 02:54 Ur Phencyclidine S crn Negative ng/mL (N egative) 07/25/24 02:54 Ur Amphetamines Sc reen Positive ng/mL (N egative) H 07/25/24 02:54 U Benzodiazepines Scrn Positive ng/mL (N egative) H 07/25/24 02:54 Urine Cocaine Scre en Negative ng/mL (N egative) 07/25/24 02:54 U Marijuana (THC) Screen Negative ng/mL (N egative) 07/25/24 02:54 Ethyl Alcohol < 10 mg/dL (0-10) 07/24/24 23:59 Vitals: Last Vital Signs Temp 98.9 F 07/28/24 06:00 Pulse 100 07/28/24 06:00 Resp 16 07/28/24 06:00 BP 114/73 07/28/24 09:08 Pulse Ox 96 07/28/24 06:00 O2 Del Method Room Air 07/28/24 06:00 Discharge Plan Discharge Patient Disposition: Home Condition: Stable Prescriptions: Continued clonazepam 0.5 mg tablet 0.5 mg PO BID PRN (Reason: anxiety) Qty: 60 1RF buspirone 15 mg tablet 15 mg PO BID Qty: 60 1RF citalopram 40 mg tablet 40 mg PO QAM 30 Days Qty: 30 1RF losartan 25 mg tablet 25 mg PO DAILY Qty: 30 11RF cyproheptadine 4 mg tablet 4 mg PO Q6H Qty: 30 1RF propranolol 10 mg tablet 10 mg PO BID Qty: 60 1RF baclofen 20 mg tablet 20 mg PO .HS Qty: 30 1RF gabapentin 800 mg tablet 800 mg PO QID Qty: 120 1RF Discontinued azithromycin 250 mg tablet See Rx Instructions PO .COMPLEX Qty: 6 0RF Rx Instructions: For 250 mg dose pack: take 500 mg today (day 1), then 250 mg for 4 days (days 2-5) PO Discharge Orders: Discharge Order (Routine); Ordered 07/28/24 Ordered By: Abhinav Salazar Referrals: Alva Mirza PMHNP [Staff Physician, Psychiatry] - 08/02/24 3:15 pm Referral Note: Follow up Garrett Castillo NP [Primary Care Provider, Family Practice] Discharge Diet: Usual diet Discharge Activity: Resume usual activity Patient Instructions: Opioid Safety, Pain Management Discharge Attestations NPU Time Spent in Discharge Care*: less than 30 min Specific Discharge Activities: Specific discharge activities: educating patient, discussing with pillowcase cutter/social workers/dc planners and documenting/other paperwork Coding Level of Care Code Acute Code for [facility] Fwd Diagnoses Methamphetamine-induced psychotic disorder F15.959 Generalized anxiety disorder F41.1 Episode of recurrent major depressive disorder, unspecified depression episode severity F33.9 Major depression recurrence: recurrent Active/Remission status: currently active Major depression episode severity: unspecified
[2024-07-28 14:57] VITALS: BP 105/79; PULSE 91; RESP 18; TEMP 36.8; O2SAT 99
== END 2024-07-28 15:45 | disposition home or self-care (01) | DRG 897 ==
LOC: ER 07-25 11:15 → NP 07-25 11:41
PROVIDERS: Student in an Organized Health Care Education/Training Program; Admitting Provider Psychiatry & Neurology Psychiatry; Emergency Provider Family Medicine; PCP Clinical Nurse Specialist Adult Health; Visit Provider Psychiatry & Neurology Psychiatry
DX: F15.959 Other stimulant use, unspecified with stimulant-induced psychotic disorder, unspecified (principal); R45.851 Suicidal ideations; F33.9 Major depressive disorder, recurrent, unspecified; R07.9 Chest pain, unspecified; F41.1 Generalized anxiety disorder; Z87.891 Personal history of nicotine dependence; I10 Essential (primary) hypertension
CPT/HCPCS: 36415; 80053; 80306; 80307; 81001; 84443; 85025; 87086; 96372; 97150; 97165; 99285; J2060; J2250; J3490; J9999

== ENCOUNTER 2024-08-28 13:40 | Emergency (ER) | payer MEDICAID, SELFPAY ==
[2024-08-28 13:41] VITALS: BP 110/71; PULSE 91; TEMP 36.8; O2SAT 99; BMI 34.4
--- OUTSIDE RECORDS SUMMARY | 2024-08-28 13:46 | XMS_ITS | Patient Health Record ---
Author Organization [facility] Address [address] [place] [address] Care Team Providers Care Cutting Room Supervisor Name Role Phone None, None Primary Care Provider Marissa Venegas Unavailable [phone] Allergies No Known Allergies Reason For Referral No Information Medications Medication SIG (Take, Route, Fr equency, Duration) Notes Start Date End Date Status clonazePAM 1 MG 1 tablet Orally tid prn for 30 days 12/01/2022 Active Neurontin 300 MG 1 capsule Orally tid for 30 days 06/10/2022 Active CeleXA 40 MG 1 tablet Orally Once a day for 30 days 03/26/2022 Active Social History Tobacco Use: Social History Observation Description Date Details (start date - stop date) Never Smoker NA - NA xTobacco Use/Smoking Question Answer Notes Are you a nonsmoker Alcohol Screen (Audit-C) Question Answer Notes Did you have a drink containing alcohol in the p ast year? No Points 0 Interpretation Negative Problems Problem Type SNOMED Code ICD Code Onset Dates Problem Status W/U Status Risk Notes Problem 314628892 Medication management (Z79.899) Active confirmed Problem 61666092 Recurrent major depressive disorder, in full remission (F33.42) Active confirmed Problem 02154779 BOOKER (generalized anxiety disorder) (F41.1) Active confirmed Problem 738764345 Panic attack (F41.0) Active confirmed Plan Of Treatment No Information Medical (General) History Medical History History ICD Code epilepsy
[2024-08-28 15:00] VITALS: BP 108/73; PULSE 71; O2SAT 94
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
--- NOTE | 2024-08-28 15:09 | CT_ITS ---
WS: [email or web address] Exam: CT head wo con* [id number] Date/Time of Exam: 08/28/2024 3:10 PM Reason For Exam: Trauma DLP: 1252.[address] scans at [facility] use at least one of these dose optimization techniques: automated exposure control; mA and/or kV adjustment per patient size (includes targeted exams where dose is matched to clinical indication); or iterative reconstruction. Comparison 03/29/2024. No sign of acute intracranial bleed or space-occupying mass. The ventricles and basal cisterns are normal in size. No extra-axial fluid collections. The skull is intact. The mastoids are clear. Mild mucosal thickening of the LEFT maxillary and the LEFT ethmoid sinuses. Normal orbits and optic globes. Cerumen noted in both external auditory canals. The scalp is unremarkable. CT/CT head wo con* [id number] IMPRESSION: 1. No acute intracranial finding. 2. Mild paranasal sinus disease as above.
--- NOTE | 2024-08-28 15:09 | CT_ITS ---
WS: [email or web address] Exam: CT abdomen pelvis w con* [id number] Date/Time of Exam: 08/28/2024 3:10 PM Reason For Exam: Trauma DLP: 968.[address] scans at [facility] use at least one of these dose optimization techniques: automated exposure control; mA and/or kV adjustment per patient size (includes targeted exams where dose is matched to clinical indication); or iterative reconstruction. Comparison 08/11/2016. Lower lung zones are clear. The liver, spleen, stomach and pancreas appear normal. The gallbladder is unremarkable. The abdominal aorta is normal in caliber. The IVC is patent. Normal adrenal glands. Unremarkable kidneys. No lymphadenopathy or free air. Small bowel loops are normal in caliber. No signi ficant large bowel abnormality seen. Normal appendix visualized. No mass or adenopathy in the pelvis. Moderate amount of stool in the rectosigmoid colon. Urinary bladder is intact. Normal prostate and seminal vesicles. No abdominal wall defect. Bony structures are intact. CT/CT abdomen pelvis w con* [id number] IMPRESSION: 1. No acute traumatic finding in the abdomen or pelvis.
--- NOTE | 2024-08-28 15:09 | XR_ITS ---
WS: [email or web address] Exam: XR chest 1V portable [id number] Date/Time of Exam: 08/28/2024 3:09 PM Reason For Exam: Trauma Comparison 01/23/2024. Lungs are clear and fully expanded. Normal cardiomediastinal silhouette. Bony structures are intact. No pleural effusion. XR/XR chest 1V portable [id number] IMPRESSION: 1. Negative chest.
[2024-08-28 15:21] LABS: Hematocrit 35.2 % (37-53); Hemoglobin 12.00 g/dL (11.27-16.99); Mean Corpuscular HGB Conc 34.1 g/dL (30-55); Mean Corpuscular Hemoglobin 30.7 pg (27-33); Mean Corpuscular Volume 90.0 fl (82-101); Nucleated Red Blood Cells % 0 %; Platelet Count 292 10^3/cmm (157-399); Red Blood Count 3.91 10^6/uL (3.85-5.65); White Blood Count 5.39 10^3/uL (3.29-11.43)
[2024-08-28] MEDS: iohexol 350 mg/mL 500 mL Btl (per mL) IV (15:23)
[2024-08-28 15:42] LABS: Alanine Aminotransferase 20 U/L (0-41); Albumin Level 3.6 g/dL (3.5-5.2); Alkaline Phosphatase 73 U/L (40-130); Anion Gap 13.8 (5-19); Aspartate Amino Transferase 19 U/L (0-40); Blood Urea Nitrogen 6 mg/dL (6-20); Calcium 8.8 mg/dL (8.5-10.5); Carbon Dioxide 26 mmol/L (22-29); Chloride 102 mmol/L (98-107); Creatinine Clr Calc Pharmacy 162.2551; Globulin 2.5 g/dL (1.3-4.6); Glucose 80 mg/dL (65-115); Osmolality Calculated 283 mOsm/kg (285-295); Potassium 3.8 mmol/L (3.5-5.1); Sodium 138 mmol/L (136-145); Total Protein 6.1 g/dL (6.6-8.7)
== END 2024-08-28 16:57 | disposition home or self-care (01) ==
PROVIDERS: Emergency Provider Family Medicine; PCP Clinical Nurse Specialist Adult Health
DX: S40.022A Contusion of left upper arm, initial encounter (principal); Y04.2XXA Assault by strike against or bumped into by another person, initial encounter; R10.9 Unspecified abdominal pain; R51.9 Headache, unspecified; Z72.0 Tobacco use; I10 Essential (primary) hypertension
CPT/HCPCS: 36415; 70450; 71045; 74177; 80053; 85025; 99285

== ENCOUNTER → 2024-09-18 11:39 | Outpatient (BNVA) | payer MEDICAID, SELFPAY | PROVIDERS: PCP Clinical Nurse Specialist Adult Health; Visit Provider Nurse Practitioner | DX: F19.10 Other psychoactive substance abuse, uncomplicated (principal) | CPT/HCPCS: 80306 ==

== ENCOUNTER 2024-10-22 13:28 | Inpatient (IN) | payer MEDICAID, SELFPAY ==
[2024-10-22] VITALS (19 sets, daily range): BP systolic 97–180; BP diastolic 53–90; PULSE 57–156; RESP 16–24; TEMP 36.8–37.6; O2SAT 93–100; BMI 30.1
--- NOTE | 2024-10-22 13:44 | CTR_ITS ---
PROCEDURE INFORMATION: Exam: CT Head Without Contrast Exam date and time: 10/22/2024 1:48 PM Age: 33 years old Clinical indication: Altered mental status/memory loss; Additional info: AMS TECHNIQUE: Imaging protocol: Computed tomography of the head without contrast. Radiation optimization: All CT scans at this facility use at least one of these dose optimization techniques: automated exposure control; mA and/or kV adjustment per patient size (includes targeted exams where dose is matched to clinical indication); or iterative reconstruction. COMPARISON: CT head wo con* [id number] 08/28/2024 3:18 PM RADIATION DOSE METRICS: Total DLP (mGy-cm): 2881.83 FINDINGS: Brain: Normal. No hemorrhage. Unremarkable white matter. No mass effect. Cerebral ventricles: No ventriculomegaly. Paranasal sinuses: Visualized sinuses are unremarkable. No fluid levels. Mastoid air cells: Visualized mastoid air cells are well aerated. Bones: Unremarkable. No acute fracture. Soft tissues: Unremarkable. CT/CT head wo con* [id number] IMPRESSION: No acute intracranial abnormality.
--- NOTE | 2024-10-22 13:44 | ECG_ITS ---
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 Measurements Intervals [place] Rate: 88 P: 51 NV: 164 QRS: -13 QRSD: 80 T: 6 QT: 367 QTc: 445 Interpretive Statements SINUS RHYTHM WITH SIGNIFICANT TRACING ARTIFACT LOW QRS VOLTAGE IN PRECORDIAL LEADS [QRS DEFLECTION < 1.0 mV IN CHEST LEADS] Compared to ECG 01/23/2024 18:15:05 NO SIGNIFICANT CHANGE Electronically Signed On 10-22-2024 14:08:29 CDT by Roddy Orozco M.D. [id number]
[2024-10-22 13:53] LABS: Hematocrit 41.6 % (37-53); Hemoglobin 13.80 g/dL (11.27-16.99); Mean Corpuscular HGB Conc 33.2 g/dL (30-55); Mean Corpuscular Hemoglobin 28.9 pg (27-33); Mean Corpuscular Volume 87.2 fl (82-101); Nucleated Red Blood Cells % 0 %; Platelet Count 288 10^3/cmm (157-399); Red Blood Count 4.77 10^6/uL (3.85-5.65); White Blood Count 8.16 10^3/uL (3.29-11.43)
--- NOTE | 2024-10-22 13:56 | W.ED.WEAKNES ---
HPI - Weakness General: Chief complaint: Weakness Stated complaint: lethargic Time Seen by Provider: 10/22/24 13:29 Source: patient Mode of arrival: ambulatory History of Present Illness: 33-year-old male who is brought here by his father with hallucinations. Patient does have a history of drug abuse is unsure if he had recent abuse. Patient here keeps saying that he is a pear. Patient is not making any sense he will answer my questions does know his name but then will stare off into space stating that he is different fruits. Associated symptoms: Denies chest pain, chills, fever(s), headache(s), nausea or vomiting Related Data Previous Rx's ?Medication ?Instructions ?Recorded losartan 25 mg tablet 25 mg PO DAILY #30 tabs 05/17/24 diclofenac sodium 75 mg 75 mg PO Q12H PRN pain #20 tabs 08/28/24 tablet,delayed release buspirone 15 mg tablet 15 mg PO BID #60 tabs 09/18/24 citalopram 40 mg tablet 40 mg PO QAM 30 days #30 tabs 09/18/24 clonazepam 0.5 mg tablet 0.5 mg PO BID PRN anxiety #60 tabs 09/18/24 gabapentin 800 mg tablet 800 mg PO QID #120 tabs 09/18/24 baclofen 20 mg tablet 20 mg PO .HS #30 tabs 10/18/24 propranolol 10 mg tablet 10 mg PO BID #60 tabs 10/18/24 Allergies Allergy/AdvReac Type Severity Reaction Status Date / Time No Known Allergies Allergy Verified 09/18/24 11:01 Review of Systems Const: Denies: fever(s), chills, body aches or change in appetite ENMT: Denies: throat pain or dental pain Card: Denies: chest pain Resp: Denies: dyspnea GI: Denies: abdominal pain, nausea, vomiting or diarrhea Musc: Denies: neck pain or back pain Skin/Breast: Denies: rash Neuro: Denies: headache(s) Psych: Reports: paranoia and difficulty concentrating PFSH ED PFSH: Medical History Essential hypertension Generalized anxiety disorder Nicotine use disorder Major depressive disorder in remission Quit drug use in remote past Psychiatric care Major depression Surgical History No pertinent past surgical history Family History Mother Cancer breast cancer Father Psychiatric illness Social History Smoking and tobacco/nicotine status: current every day tobacco/nicotine user Quit status (tobacco/nicotine): has quit using Former quit date comment: 4 year history of smoking Alcohol intake: never Substance/Drug Use: former Household members: family Housing: House Marital status: Unknown Highest education level completed: Some College, No Degree Physical Exam Const: COMMON NORMALS: no acute distress, patient oriented x3 and healthy appearing HENMT: COMMON NORMALS: normocephalic and atraumatic HEAD & SCALP: normocephalic and atraumatic Eye: COMMON NORMALS: conjunctivae normal CONJUNCTIVA: Yes conjunctivae normal Neck/C-Spine: COMMON NORMALS: full ROM and supple Chest: COMMONS NORMALS: normal inspection of the chest Resp: COMMON NORMALS: normal respiratory effort Cardio: COMMON NORMALS: regular rate and regular rhythm RATE: regular rate RHYTHM: regular rhythm GI: COMMON NORMALS: Normal to inspection, nondistended, normoactive bowel sounds present, Soft to palpation, non-tender and no masses PALPATION: Yes Soft to palpation Extremity: COMMON NORMALS: normal to inspection and full ROM Neuro: COMMON NORMALS: patient oriented x3, moves all extremities and no focal motor deficits Psych: COMMON NORMALS: cooperative ATTITUDE: Yes paranoid and Yes bizarre ACTIVITY/MOTOR BEHAVIOR: Yes disorganized behavior THOUGHT PROCESS: disorganized Skin: COMMON NORMALS: no rashes or lesions noted and no wounds GENERAL SKIN EXAM: no rashes or lesions noted Course Vital Signs: Vital signs: Vital Signs Temperature 98.3 F 10/22/24 13:29 Pulse Rate 68 10/22/24 13:29 Respiratory Rate 16 10/22/24 13:29 Blood Pressure 126/79 10/22/24 13:29 Pulse Oximetry 100 10/22/24 13:29 Oxygen Delivery Me thod Room Air 10/22/24 13:29 MDM - Weakness Medical Decision Making Patient presents with acute psychosis 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 Medical Records I reviewed the patient's medical records. Lab Data I reviewed the patient's lab results. 10/22/24 13:48 10/22/24 13:[address] 10/22/24 13:44 IMPRESSION: No acute intracranial abnormality. Laboratory Results WBC 8.16 10^3/uL (3.29-11.43) 10/22/24 13:48 RBC 4.77 10^6/uL (3.85-5.65) 10/22/24 13:48 Hgb 13.80 g/dL (11.27-16.99) 10/22/24 13:48 Hct 41.6 % (37-53) 10/22/24 13:48 MCV 87.2 fl (82-101) 10/22/24 13:48 MCH 28.9 pg (27-33) 10/22/24 13:48 MCHC 33.2 g/dL (30-55) 10/22/24 13:48 RDW 13.2 % (12.1-15.1) 10/22/24 13:48 Plt Count 288 10^3/cmm (157-399) 10/22/24 13:48 MPV 9.5 fL (7.4-10.4) 10/22/24 13:48 Neut % (Auto) 74.2 % 10/22/24 13:48 Lymph % (Auto) 17.3 % 10/22/24 13:48 [place] % (Auto) 5.9 % 10/22/24 13:48 Eos % (Auto) 1.8 % 10/22/24 13:48 Baso % (Auto) 0.6 % 10/22/24 13:48 Neut # (Auto) 6.05 10^3/uL (1.8-7.7) 10/22/24 13:48 Lymph # (Auto) 1.4 10^3/uL (0.8-4.8) 10/22/24 13:48 [place] # (Auto) 0.5 10^3/uL (0.2-0.9) 10/22/24 13:48 Eos # (Auto) 0.2 10^3/uL (0.0-0.8) 10/22/24 13:48 Baso # (Auto) 0.1 10^3/uL (0.0-0.1) 10/22/24 13:48 Nucleated RBC % (auto) 0 % 10/22/24 13:48 Nucleated RBCs # 0.0 /100WBC 10/22/24 13:48 Sodium 138 mmol/L (136-145) 10/22/24 13:48 Potassium 4.1 mmol/L (3.5-5.1) 10/22/24 13:48 Chloride 99 mmol/L (98-107) 10/22/24 13:48 Carbon Dioxide 30 mmol/L (22-29) H 10/22/24 13:48 Anion Gap 13.1 (5-19) 10/22/24 13:48 BUN 16 mg/dL (6-20) 10/22/24 13:48 Creatinine 0.8 mg/dL (0.7-1.2) 10/22/24 13:48 GFR Calculation 111.3 mL/min (90-130) 10/22/24 13:48 Glucose 103 mg/dL (65-115) 10/22/24 13:48 Calculated Osmolality 287 mOsm/kg (285-295) 10/22/24 13:48 Calcium 9.7 mg/dL (8.5-10.5) 10/22/24 13:48 Total Bilirubin 0.3 mg/dL (0.15-1.2) 10/22/24 13:48 AST 20 U/L (0-40) 10/22/24 13:48 ALT 18 U/L (0-41) 10/22/24 13:48 Alkaline Phosphatase 72 U/L (40-130) 10/22/24 13:48 Total Protein 7.1 g/dL (6.6-8.7) 10/22/24 13:48 Albumin 4.3 g/dL (3.5-5.2) 10/22/24 13:48 Globulin 2.8 g/dL (1.3-4.6) 10/22/24 13:48 Salicylates < 0.3 mg/dL (3-10) L 10/22/24 13:48 Urine Opiates Screen Positive ng/mL (Negative) H 10/22/24 14:28 Acetaminophen < 5.0 ug/mL (10-30) L 10/22/24 13:48 Ur Barbiturates Screen Negative ng/mL (Negative) 10/22/24 14:28 Ur Phencyclidine Scrn Negative ng/mL (Negative) 10/22/24 14:28 Ur Amphetamines Screen Negative ng/mL (Negative) 10/22/24 14:28 U Benzodiazepines Scrn Positive ng/mL (Negative) H 10/22/24 14:28 Urine Cocaine Screen Negative ng/mL (Negative) 10/22/24 14:28 U Marijuana (THC) Screen Negative ng/mL (Negative) 10/22/24 14:28 Ethyl Alcohol < 10 mg/dL (0-10) 10/22/24 13:48 All radiology interpretation(s) finalized by discharge Discharge Plan Discharge Patient Disposition: Admitted As Inpatient Clinical Impression: Acute psychosis Condition: Stable Coding Level of Care Code ED Civil Engineer In Training for Sukumar Betts
--- NOTE | 2024-10-22 14:08 | PC.PHAR ---
Pt unable to verify his medications. Med rec completed with most current last fill dates and day supply.
[2024-10-22 14:15] LABS: Alanine Aminotransferase 18 U/L (0-41); Albumin Level 4.3 g/dL (3.5-5.2); Alkaline Phosphatase 72 U/L (40-130); Anion Gap 13.1 (5-19); Aspartate Amino Transferase 20 U/L (0-40); Blood Urea Nitrogen 16 mg/dL (6-20); Calcium 9.7 mg/dL (8.5-10.5); Carbon Dioxide 30 mmol/L (22-29); Chloride 99 mmol/L (98-107); Creatinine Clr Calc Pharmacy 152.1436; Globulin 2.8 g/dL (1.3-4.6); Glucose 103 mg/dL (65-115); Osmolality Calculated 287 mOsm/kg (285-295); Potassium 4.1 mmol/L (3.5-5.1); Sodium 138 mmol/L (136-145); Total Protein 7.1 g/dL (6.6-8.7)
[2024-10-22 14:21] LABS: Acetaminophen < 5.0 ug/mL (10-30); Alcohol Level < 10 mg/dL (0-10); Salicylate < 0.3 mg/dL (3-10)
[2024-10-22] MEDS: haloperidol inj 5 mg/mL INJ 1 mL IM ×2 (14:46→19:05)
[2024-10-22] MEDS: LORazepam 1 MG/0.5 ML injection IM (14:46)
[2024-10-22 15:08] LABS: PCP Screen Urine Negative (Negative)
--- NOTE | 2024-10-22 15:36 | PC.NURSE ---
Involuntary 96 hour hold rights read and reviewed with patient. Wes from security present during reading of rights. Patient verbalized understandings and copy of rights given to patient.
[2024-10-22] MEDS: LORazepam 1 MG/0.5 ML injection 2 MG IM ×2 (15:37→19:38)
--- NOTE | 2024-10-22 16:00 | PC.NURSE ---
PT IS CONTINUOUSLY MOVING AROUND AND ABLE TO FOLLOW SOME COMMANDS. PT APPEARS TO HAVE INVOLUNTARY MOVEMENTS IN BILATERAL UPPER EXTREMITIES. PT CHANGED INTO GREEN SCRUBS AND ALL BELONGINGS WERE REMOVED FROM ROOM. SECURITY AT BEDSIDE.
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
--- NOTE | 2024-10-22 17:28 | PC.NURSE ---
Pt. continues to be unable to hold still pacing back and forth, taking his pants off and putting them back on again, running his hands over his head. Pt. continues to remain in seclusion d/t this behavior.
[2024-10-22] MEDS: water for injection-sterile 10 ML 2 ML (17:49)
--- NOTE | 2024-10-22 17:51 | PC.NURSE ---
Pt. just given a Geodon inj in the right deltoid.
--- NOTE | 2024-10-22 18:09 | PC.NURSE ---
Dr. Salazar gave the verbal order to give an addition 20mg of Geodon IM.
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
[2024-10-22] MEDS: diphenhydrAMINE 50 mg/mL SDV 1mL IM (19:39)
--- NOTE | 2024-10-22 21:10 | ECG_ITS ---
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 Measurements Intervals [place] Rate: 89 P: 40 MA: 132 QRS: -18 QRSD: 89 T: 9 QT: 361 QTc: 440 Interpretive Statements SINUS RHYTHM WITH SINUS ARRHYTHMIA Compared to ECG 10/22/2024 14:02:08 No significant changes Electronically Signed On 10-23-2024 21:58:16 CDT by Jn Lozada M.D. [id number]
--- NOTE | 2024-10-22 21:14 | PM.HP ---
Providers/Chief Complaint Admitting Physician: Abhinav Salazar MD Chief Complaint: lethargic History of Present Illness Abhilash Ibarra is a 33 year old male Medications/Allergies Home Medications ?Medication ?Instructions ?Recorded ?Confirmed ?Last Taken ?Type losartan 25 mg tablet 25 mg PO DAILY #30 tabs 05/17/24 10/22/24 Unknown Rx diclofenac sodium 75 mg 75 mg PO Q12H PRN pain #20 tabs 08/28/24 10/22/24 Unknown Rx tablet,delayed release buspirone 15 mg tablet 15 mg PO BID #60 tabs 09/18/24 10/22/24 Unknown Rx citalopram 40 mg tablet 40 mg PO QAM 30 days #30 tabs 09/18/24 10/22/24 Unknown Rx clonazepam 0.5 mg tablet 0.5 mg PO BID PRN anxiety #60 tabs 09/18/24 10/22/24 Unknown Rx gabapentin 800 mg tablet 800 mg PO QID #120 tabs 09/18/24 10/22/24 Unknown Rx baclofen 20 mg tablet 20 mg PO .HS #30 tabs 10/18/24 10/22/24 Unknown Rx propranolol 10 mg tablet 10 mg PO BID #60 tabs 10/18/24 10/22/24 Unknown Rx Allergies Allergy/AdvReac Type Severity Reaction Status Date / Time No Known Allergies Allergy Verified 09/18/24 11:01 PFSH Acute PFSH: Medical History (Updated 10/22/24 @ 15:20 by Eleazar Meza MD) Essential hypertension Generalized anxiety disorder Nicotine use disorder Major depressive disorder in remission Quit drug use in remote past Psychiatric care Major depression Surgical History No pertinent past surgical history Family History Mother Cancer breast cancer Father Psychiatric illness Social History Smoking and tobacco/nicotine status: current every day tobacco/nicotine user Quit status (tobacco/nicotine): has quit using Former quit date comment: 4 year history of smoking Alcohol intake: never Substance/Drug Use: former Household members: family Housing: House Marital status: Unknown Highest education level completed: Some College, No Degree Vitals/I&O/Wt Last Vital Signs Temp 98.3 F 10/22/24 20:49 Pulse 120 H 10/22/24 20:49 Resp 24 H 10/22/24 20:49 BP 180/90 10/22/24 20:49 Pulse Ox 98 10/22/24 20:49 O2 Del Method Room Air 10/22/24 20:49 10/22/24 10/22/24 10/22/24 06:59 14:59 22:59 Intake Total Balance Weight last 48 hrs Weight 95.254 kg Data 10/22/24 13:48 10/22/24 13:48 A&P PDMP PDMP Reviewed: Not Reviewed Coding Level of Care Code Acute Code for Chg Fwd
--- NOTE | 2024-10-22 21:27 | PM.CONSULT ---
Providers/Reason For Consult Consulting Physician/Specialty*: KATT RICHARDSON DO--HOSPITALIST Reason for Consult*: Acute psychosis from unknown polysubstance ingestion with much agitation/medical management Requesting Physician: Abhinav Lee MD Attending Physician: Abhinav Lee MD Primary Care Provider: Garrett Castillo History of Present Illness History of Present Illness Abhilash Ibarra is a 33 year old male with a recurrent behavioral of polysubstance abuse, presenting today with a history of ingesting polysubstance with resultant acute psychosis with outbursts of explosive behavior this substance ingested we are unknown patient presented to the emergency room and they sent the patient to [facility] because of his history. Patient choice medication had this no change sometime ketamine. Last hospitalization patient had ingested a lot of hallucinogens to we are he was unresponsive for 2 days and then finally woke up and was fine discharged home. Patient psychiatric problem is major depression I was called to evaluate patient in the [facility] because he had been placed in seclusion for over 4 hours and 4 point restraint and has heart rate tracking in the 120s and noted that the eyes will roll back into the head and this was concerning today psychiatric staff. The psychiatrist Dr. Lee consulted me to evaluate patient and possibly admit to ICU or any other floor for medical management. I have seen and evaluated patient patient is not actually following much commands agitated and rocking himself [id number] with 4 point restraint he is very dry and with a heart rate at 129 blood pressure was decent above 150s systolic. Patient is afebrile and not hypotensive. Patient is on room air pulse ox and in the high 90s I recommend to admit patient to ICU at least overnight and placed patient on Precedex and hold any other medication only to be given as needed must continue to treat and monitor closely. If patient deteriorates and needing to be intubated then we will do so. Review of Systems Narrative: System review is not very informative as patient is not able to verbalize or talk or follow command Medications/Allergies Home Medications ?Medication ?Instructions ?Recorded ?Confirmed ?Last Taken ?Type losartan 25 mg tablet 25 mg PO DAILY #30 tabs 05/17/24 10/22/24 Unknown Rx diclofenac sodium 75 mg 75 mg PO Q12H PRN pain #20 tabs 08/28/24 10/22/24 Unknown Rx tablet,delayed release buspirone 15 mg tablet 15 mg PO BID #60 tabs 09/18/24 10/22/24 Unknown Rx citalopram 40 mg tablet 40 mg PO QAM 30 days #30 tabs 09/18/24 10/22/24 Unknown Rx clonazepam 0.5 mg tablet 0.5 mg PO BID PRN anxiety #60 tabs 09/18/24 10/22/24 Unknown Rx gabapentin 800 mg tablet 800 mg PO QID #120 tabs 09/18/24 10/22/24 Unknown Rx baclofen 20 mg tablet 20 mg PO .HS #30 tabs 10/18/24 10/22/24 Unknown Rx propranolol 10 mg tablet 10 mg PO BID #60 tabs 10/18/24 10/22/24 Unknown Rx Allergies Allergy/AdvReac Type Severity Reaction Status Date / Time No Known Allergies Allergy Verified 09/18/24 11:01 Current Medications Generic Name Dose Route Start Last Admin Trade Name Freq PRN Reason Stop Dose Admin Baclofen 20 mg 10/22/24 21:00 10/22/24 20:01 Baclofen 10 Mg Tablet PO Not Given BEDTIME BASIM Buspirone HCl 15 mg 10/22/24 18:00 10/22/24 18:21 Buspirone 10 Mg Tablet PO Not Given BID BASIM Diphenhydramine HCl 50 mg 10/22/24 16:08 10/22/24 19:39 Diphenhydramine 50 Mg/Ml Sdv 1ml IM 50 mg ONCE PRN Administration Severe Extrapyramidal Symptoms Gabapentin 800 mg 10/22/24 17:00 10/22/24 20:02 Gabapentin 400 Mg Capsule PO Not Given QID BASIM Haloperidol 5 mg 10/22/24 16:08 10/22/24 19:40 Haloperidol 5 Mg Tablet PO 5 mg Q4H PRN Administration AGITATION Haloperidol Lactate 5 mg 10/22/24 16:08 10/22/24 19:05 Haloperidol Inj 5 Mg/Ml Inj 1 Ml IM 5 mg Q4H PRN Administration Severe Aggression Lorazepam 2 mg 10/22/24 16:08 10/22/24 19:38 Lorazepam 1 Mg/0.5 Ml Injection IM 2 mg Q4H PRN Administration Severe Aggression Propranolol HCl 10 mg 10/22/24 18:00 10/22/24 18:21 Propranolol 20 Mg Tablet PO Not Given BID BASIM PFSH Acute PFSH: Medical History Essential hypertension Generalized anxiety disorder Nicotine use disorder Major depressive disorder in remission Quit drug use in remote past Psychiatric care Major depression Surgical History No pertinent past surgical history Family History Mother Cancer breast cancer Father Psychiatric illness Social History Smoking and tobacco/nicotine status: current every day tobacco/nicotine user Quit status (tobacco/nicotine): has quit using Former quit date comment: 4 year history of smoking Alcohol intake: never Substance/Drug Use: former Household members: family Housing: House Marital status: Unknown Highest education level completed: Some College, No Degree Vitals/I&O/Wt Last Vital Signs Temp 98.3 F 10/22/24 20:49 Pulse 120 H 10/22/24 20:49 Resp 24 H 10/22/24 20:49 BP 180/90 10/22/24 20:49 Pulse Ox 98 10/22/24 20:49 O2 Del Method Room Air 10/22/24 20:49 10/22/24 10/22/24 10/22/24 06:59 14:59 22:59 Intake Total Balance Weight last 48 hrs Weight 95.254 kg Physical Exam Narrative: General The patient looks very dry third-degree dehydration the tongue is very dry along with the mucous membrane patient will not talk will not give response to any question the pupils are pretty much to normal size of 4 mm pulpil gauge HEENT normocephalic atraumatic neck neck is supple cardiovascular heart rate is regular but tachycardic in the 120s lungs are clear abdomen soft nontender nondistended unremarkable extremities are intact no edema has good pulses neurology there is no focality however patient is very fidgety restless but with no aggressive vocalization . Data 10/22/24 13:48 10/22/24 13:48 A&P Assessment and plan 1. Acute psychosis: 2. Polysubstance abuse: 3. Outbursts of explosive behavior: 4. Essential hypertension: 5. Infected dental caries: 6. Elevated blood pressure readin. Myalgia: 8. Nicotine use disorder: Plan: Acute psychosis secondary to unknown polysubstance ingestion - Patient had not responded to Haldol or any other antipsychotics and with associated tachycardia - Transfer to ICU for close monitoring - Initiate Precedex IV drip with protocol and titrate - Assess hemodynamics and optimize accordingly - My hope is patient would do well overnight once all ingested had been metabolized and out - Initiate normal saline at 125 - GI prophylaxis with PPI - Patient may continue Geodon 20 mg IM every 12 as needed - Gabapentin 800 mg p.o. 4 times daily - Dehydration - Patient with third degree dehydration with very dry tongue and dry mucous membrane - Continue with normal saline at 125 an hour Continue to monitor urinary output Dental caries - Patient had no sign of infection - Noted methamphetamine teeth - No febrile illness - White count unremarkable - Outpatient dentist/oral surgeon for dental care Nicotine addiction -Continue nicotine patch Uncontrolled blood pressure -Continue antihypertensive that he uses at home Anxiety disorder -Patient can continue BuSpar 15 mg twice daily -Clonazepam 0.5 mg twice daily as needed PDMP PDMP Reviewed: Not Reviewed Coding Level of Care Code 92184 Diagnoses Acute psychosis F23 Polysubstance abuse F19.10 Outbursts of explosive behavior R46.89 Essential hypertension I10 Infected dental caries K02.9; K04.7 Elevated blood pressure reading R03.0 Myalgia M79.10 Nicotine use disorder F17.200 Time Spent (min) 60
[2024-10-22] MEDS: dexmedeTOMIDine 0.9 % NaCL 400 MCG/100 ML PREMIX IV (21:31)
--- NOTE | 2024-10-22 21:47 | PC.NURSE ---
Addendum entered by Abhilash Barry RN 10/22/24 21:50: Pt. was put in restraints at 1802. During report this nurse was told pt had been in seclusion for 4hours prior.Vitals were obtained at 1830 and every 15 mn thereafter until patient was transported to ICU for intubation. DR. Salazar had this nurse to give a [id number] after giving 5mg haldol at 1900. was called back 15 min later per request and vitals were rechecked and there was no change in pt behavior. Dr Salazar said he would find someone from ED or icu to inubate the pt. Talked to Dr. Gonzales and did a patient assessment together . Pulse was 120and extremities were good x4 x4 and agreed patient needed to be intubated.Restraints were removed. Pt left NPU at 2058, R wrist was released at 2055, left at 2057. bilateral ankles released at 2053 Original Note: Pt. was put in restraintsaat 1802. During report this nurse was told he had been in seclusion for 4hoours
[2024-10-22 22:00] LABS: Magnesium 2.2 mg/dL (1.7-2.3)
--- NOTE | 2024-10-22 22:00 | PC.NURSE ---
Addendum entered by Jeniffer Contreras RN 10/23/24 05:33: pt condition upon shift change pt had 3 areas of consideration for more extensive physical assessment. pt has bleeding on his right hand near his middle knuckles, on his right foot near his mid toes, and his right head had a bruise that appeared to be forming with an abrasion. pt was alert to 'self' during these times as he would answer when this nurse would say his name. Original Note: pt condition
--- NOTE | 2024-10-22 22:00 | PC.NURSE ---
tx to ICU this nurse along with Nubia RN, Lori, RNHS, and both security moving patient from restraint bed to 4 point restraint stretcher. released bilateral ankles at 2053. no issues with pt attempting to kick. pt ankles did have some redness but no skin breakage and pulses were equal and strong. cap refill normal. right wrist released at 2055. left wrist released at 2057. pt bilateral wrists did have some redness but no skin breakage and pulses were equal and strong. cap refill normal. transferred pt from npu restraint bed to restraint stretcher and reapplied bilateral wrist restraints at 2057. we left the unit with pt at 2058 & arrived in ICU at 2103 where we released both wrists again. wrists appeared to be the same as they were prior to this application.
--- NOTE | 2024-10-22 22:28 | PC.NURSE ---
Pt arrived from NPU on restraint bed at 2109. Placed in ICU bed and in medical soft restraints. Pt unable to answer questions but occasionally will yell profanity, unable to follow any directions, make any eye contact, or any otherwise purposeful contact. Spoke with Dr. Salazar, approved precedex titrations outside of protocol as patient has constantly flailed all ext and rubbed and pulled at his genitals. No violent behavior, but has been incoherent and unable to follow directions for safety. BP had steady decline and reported same to physician, ordered 1 liter NS bolus and to increase maintenance fluids to 150 per hour.
[2024-10-23] VITALS (91 sets, daily range): BP systolic 98–150; BP diastolic 57–95; PULSE 52–85; RESP 20–62; O2SAT 68–100
--- NOTE | 2024-10-23 00:18 | PC.NURSE ---
On arrival from NPU, pt had contusion to his forehead from hitting it on the floor before arriving to this unit. Has order for SQ heparin, held pending clarification from Dr. Salazar since injury. Also noted bruising and swelling to lateral side of left foot, requested x ray for same, awaiting approval from physician.
[2024-10-23] MEDS: dexmedeTOMIDine 0.9 % NaCL 400 MCG/100 ML PREMIX 19.05 MCG IV (01:27)
--- NOTE | 2024-10-23 03:48 | CTR_ITS ---
PROCEDURE INFORMATION: Exam: CT Head Without Contrast Exam date and time: 10/23/2024 3:52 AM Age: 33 years old Clinical indication: Injury or trauma; Fall; Blunt trauma (contusions or hematomas); PT hit front of head on floor intentionally TECHNIQUE: Imaging protocol: Computed tomography of the head without contrast. Radiation optimization: All CT scans at this facility use at least one of these dose optimization techniques: automated exposure control; mA and/or kV adjustment per patient size (includes targeted exams where dose is matched to clinical indication); or iterative reconstruction. COMPARISON: CT head wo con* [id number] 10/22/2024 1:48 PM RADIATION DOSE METRICS: Total DLP (mGy-cm): 1093.03 FINDINGS: Brain: Normal. No hemorrhage. Unremarkable white matter. No mass effect. Cerebral ventricles: No ventriculomegaly. Paranasal sinuses: Visualized sinuses are unremarkable. No fluid levels. Mastoid air cells: Visualized mastoid air cells are well aerated. Bones: Unremarkable. No acute fracture. Soft tissues: Right frontal scalp mixed density hematoma measuring up to [address]/CT head wo con* [id number] IMPRESSION: 1. No acute intracranial abnormality. 2. Right frontal scalp mixed density hematoma.
--- NOTE | 2024-10-23 03:50 | XRR_ITS ---
PROCEDURE INFORMATION: Exam: XR Right Foot Exam date and time: 10/23/2024 3:53 AM Age: 33 years old Clinical indication: Injury or trauma; Other: Blunt trauma; Foot; Right TECHNIQUE: Imaging protocol: Radiologic exam of the right foot. Views: 1 or 2 views. COMPARISON: No relevant prior studies available. FINDINGS: Bones/joints: Acute comminuted fracture of the 5th metatarsal with mild foreshortening and medial displacement. Soft tissues: Soft tissue swelling of the forefoot. XR/XR foot RT 2V [id number] IMPRESSION: Acute comminuted fracture of the 5th metatarsal with mild foreshortening and medial displacement.
[2024-10-23 04:36] LABS: Hematocrit 39.2 % (37-53); Hemoglobin 13.10 g/dL (11.27-16.99); Mean Corpuscular HGB Conc 33.4 g/dL (30-55); Mean Corpuscular Hemoglobin 28.9 pg (27-33); Mean Corpuscular Volume 86.3 fl (82-101); Nucleated Red Blood Cells % 0 %; Platelet Count 292 10^3/cmm (157-399); Red Blood Count 4.54 10^6/uL (3.85-5.65); White Blood Count 9.71 10^3/uL (3.29-11.43)
[2024-10-23 04:56] LABS: Alanine Aminotransferase 23 U/L (0-41); Albumin Level 3.8 g/dL (3.5-5.2); Alkaline Phosphatase 68 U/L (40-130); Anion Gap 14.2 (5-19); Aspartate Amino Transferase 51 U/L (0-40); Blood Urea Nitrogen 17 mg/dL (6-20); Calcium 8.5 mg/dL (8.5-10.5); Carbon Dioxide 24 mmol/L (22-29); Chloride 105 mmol/L (98-107); Creatinine Clr Calc Pharmacy 202.8581; Globulin 2.6 g/dL (1.3-4.6); Glucose 109 mg/dL (65-115); Magnesium 2.1 mg/dL (1.7-2.3); Osmolality Calculated 290 mOsm/kg (285-295); Potassium 4.2 mmol/L (3.5-5.1); Sodium 139 mmol/L (136-145); Total Protein 6.4 g/dL (6.6-8.7)
--- NOTE | 2024-10-23 05:10 | PC.NURSE ---
pt belongings will hold pt belongings in npu d/t anticipated return of pt to this unit.
[2024-10-23] MEDS: dexmedeTOMIDine 0.9 % NaCL 400 MCG/100 ML PREMIX 9.53 MCG IV (07:15)
--- NOTE | 2024-10-23 07:27 | PC.NURSE ---
Reported bruising to patient's right foot and contusion on forehead. Ordered CT of head and x ray of foot. CT negative, x ray results called to Dr. Israel, stated she would consult ortho. Also discussed that pt was more alert and had been weaning precedex. Approved removing restraints at 0400. Awakened fully at 0530, had some hallucinations and was seeing Andrzej Lucas in the corner of his room. Was stating he was going home, but was redirected successfully. 1:1 sitter remaining.
[2024-10-23] MEDS: heparin 5,000 unit/mL INJ 1 mL 5000 UNIT SUBCUT ×2 (08:28→20:16)
--- NOTE | 2024-10-23 12:10 | XRR_ITS ---
PROCEDURE INFORMATION: Exam: XR Right Knee Exam date and time: 10/23/2024 1:50 PM Age: 33 years old Clinical indication: Right; --rt knee pain no trauma TECHNIQUE: Imaging protocol: Radiologic exam of the right knee. Views: 1 or 2 views. COMPARISON: CR (LOW EXM, ) 10/23/2024 3:53 AM FINDINGS: Bones/joints: Normal. Soft tissues: Normal. XR/XR knee RT 1-2V [id number] IMPRESSION: No acute findings.
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
[2024-10-23] MEDS: dexmedeTOMIDine 0.9 % NaCL 400 MCG/100 ML PREMIX 11.91 MCG IV (14:50)
--- NOTE | 2024-10-23 16:16 | PM.CONSULT ---
Providers/Reason For Consult Consulting Physician/Specialty*: Yang Ramon.P.M./podiatry Reason for Consult*: Right foot fifth metatarsal comminuted fracture Attending Physician: Larry Silva MD Primary Care Provider: Garrett Castillo History of Present Illness History of Present Illness Abhilash Ibarra is a 33 year old male who is currently admitted to ICU. He sustained multiple falls since being in the hospital including in the emergency department as well as in isolation in NPU. X-rays were obtained which showed right foot fifth metatarsal comminuted fracture. Podiatry was consulted to evaluate and treat Review of Systems General: Reports: 10 or more systems reviewed and unremarkable except in HPI and below Const: Denies: fever(s), chills, body aches, fatigue or malaise Eyes: Denies: change in vision ENMT: Denies: throat pain Card: Denies: chest pain or palpitations Resp: Denies: dyspnea GI: Denies: abdominal pain, nausea or vomiting Musc: Reports: extremity pain, limited range of motion, muscle cramps and muscle weakness Skin/Breast: Denies: rash or skin swelling Medications/Allergies Home Medications ?Medication ?Instructions ?Recorded ?Confirmed ?Last Taken ?Type losartan 25 mg tablet 25 mg PO DAILY #30 tabs 05/17/24 10/22/24 Unknown Rx diclofenac sodium 75 mg 75 mg PO Q12H PRN pain #20 tabs 08/28/24 10/22/24 Unknown Rx tablet,delayed release buspirone 15 mg tablet 15 mg PO BID #60 tabs 09/18/24 10/22/24 Unknown Rx citalopram 40 mg tablet 40 mg PO QAM 30 days #30 tabs 09/18/24 10/22/24 Unknown Rx clonazepam 0.5 mg tablet 0.5 mg PO BID PRN anxiety #60 tabs 09/18/24 10/22/24 Unknown Rx gabapentin 800 mg tablet 800 mg PO QID #120 tabs 09/18/24 10/22/24 Unknown Rx baclofen 20 mg tablet 20 mg PO .HS #30 tabs 10/18/24 10/22/24 Unknown Rx propranolol 10 mg tablet 10 mg PO BID #60 tabs 10/18/24 10/22/24 Unknown Rx Allergies Allergy/AdvReac Type Severity Reaction Status Date / Time No Known Allergies Allergy Verified 09/18/24 11:01 Current Medications Generic Name Dose Route Start Last Admin Trade Name Freq PRN Reason Stop Dose Admin Baclofen 20 mg 10/22/24 21:00 10/22/24 20:01 Baclofen 10 Mg Tablet PO Not Given BEDTIME BASIM Buspirone HCl 15 mg 10/22/24 18:00 10/23/24 08:28 Buspirone 10 Mg Tablet PO 15 mg BID BASIM Administration Citalopram Hydrobromide 40 mg 10/23/24 06:00 10/23/24 06:35 Citalopram 20 Mg Tablet PO 40 mg QAM BASIM Administration Clonazepam 0.5 mg 10/22/24 16:44 10/23/24 09:45 Clonazepam 0.5 Mg Tablet PO 0.5 mg BID PRN Administration ANXIETY Diphenhydramine HCl 50 mg 10/22/24 16:08 10/22/24 19:39 Diphenhydramine 50 Mg/Ml Sdv 1ml IM 50 mg ONCE PRN Administration Severe Extrapyramidal Symptoms Docusate Sodium 100 mg 10/23/24 09:00 10/23/24 08:28 Docusate Sodium 100 Mg Capsule PO 100 mg BID BASIM Administration Gabapentin 800 mg 10/22/24 17:00 10/23/24 14:22 Gabapentin 400 Mg Capsule PO 800 mg QID BASIM Administration Haloperidol 5 mg 10/22/24 16:08 10/22/24 19:40 Haloperidol 5 Mg Tablet PO 5 mg Q4H PRN Administration AGITATION Haloperidol Lactate 5 mg 10/22/24 16:08 10/22/24 19:05 Haloperidol Inj 5 Mg/Ml Inj 1 Ml IM 5 mg Q4H PRN Administration Severe Aggression Heparin Sodium (Porcine) 5,000 unit 10/22/24 21:00 10/23/24 08:28 Heparin 5,000 Unit/Ml Inj 1 Ml SUBCUT 5,000 unit Q12H BASIM Administration Sodium Chloride 1,000 mls @ 150 mls/hr 10/22/24 20:45 10/23/24 06:36 Sodium Chloride 0.9% IV 150 mls/hr .Q6H40M BASIM Administration Dexmedetomidine/Sodium Chloride 400 mcg in 100 mls @ 0 mls/hr 10/22/24 21:30 10/23/24 14:50 Precedex IV 0.5 mcg/kg/hr .Q0M BASIM 11.91 mls/hr Protocol Administration Per Protocol Lorazepam 2 mg 10/22/24 16:08 10/22/24 19:38 Lorazepam 1 Mg/0.5 Ml Injection IM 2 mg Q4H PRN Administration Severe Aggression Pantoprazole Sodium 40 mg 10/23/24 09:00 10/23/24 08:[address] 40 Mg Tablet PO 40 mg DAILY BASIM Administration Propranolol HCl 10 mg 10/22/24 18:00 10/23/24 08:28 Propranolol 20 Mg Tablet PO 10 mg BID BASIM Administration PFSH Acute PFSH: Medical History (Updated 10/23/24 @ 19:50 by Flynn Manzano DPM) Essential hypertension Generalized anxiety disorder Nicotine use disorder Major depressive disorder in remission Quit drug use in remote past Psychiatric care Major depression Surgical History No pertinent past surgical history Family History Mother Cancer breast cancer Father Psychiatric illness Social History Smoking and tobacco/nicotine status: current every day tobacco/nicotine user Quit status (tobacco/nicotine): has quit using Former quit date comment: 4 year history of smoking Alcohol intake: never Substance/Drug Use: former Household members: family Housing: House Marital status: Unknown Highest education level completed: Some College, No Degree Vitals/I&O/Wt Last Vital Signs Temp 99.7 F H 10/22/24 21:45 Pulse 60 10/23/24 14:15 Resp 62 H 10/23/24 09:30 BP 113/76 10/23/24 14:15 Pulse Ox 95 10/23/24 12:15 O2 Del Method Room Air 10/22/24 20:49 10/23/24 10/23/24 10/23/24 06:59 14:59 22:59 Intake Total 2135.419 / 2148.037 346.360 / 346.360 Output Total 500 / 500 Balance 2135.419 / 2148.037 -153.640 / -153.640 Weight last 48 hrs Weight 210 lb Physical Exam Narrative: BELOW IS A FOCUSED LOWER EXTREMITY EXAM GENERAL: A&O x 3 VASCULAR: DP/PT pulses palpable 2/4 with CFT intact, <3seconds to distal digits DERMATOLOGICAL: Skin turgor and temperature is within normal limits. No interdigital maceration noted. MUSCULOSKELETAL: Edema and ecchymoses to dorsal lateral aspect of right foot. Tenderness with palpation of fifth metatarsal right foot. Full musculoskeletal exam deferred secondary to posttraumatic state. NEUROLOGICAL: Neurological sensation to the affected foot and ankle is present through L4-S1 dermatomes with no hyper/hypoesthesias, negative Tinel or Valleix's sign IMAGING: Three-view x-rays of right foot independently turbid by me show comminuted distal third of right foot fifth metatarsal. No other fractures or dislocations appreciated. Data 10/23/24 04:09 10/23/24 04:09 A&P Assessment and plan 1. Fracture of fifth metatarsal bone of right foot: Plan: Patient was seen and evaluated in the ICU. X-rays were independently turbid by me and discussed with patient. Patient has comminuted fracture of distal third of right foot fifth metatarsal. This is extra-articular. Discussed with patient this will be treated nonoperatively. Patient can weight-bear as tolerated in cam boot. Discussed with patient that crutches are appropriate to help offload the area as needed. Patient verbalized understanding to this. Patient verbalized understanding to the plan. Patient verbalized understanding to not ambulating to the right lower extremity without wearing the cam boot. Order to physical therapy placed for cam boot fitment and crutches. Patient will follow-up with podiatry within 1 week of discharge for outpatient fracture management. Podiatry will sign off. Please reconsult if needed PDMP PDMP Reviewed: Not Reviewed Coding Level of Care Code Acute Code for Chg Fwd Diagnoses Fracture of fifth metatarsal bone of right foot S92.351A
--- NOTE | 2024-10-23 17:54 | P.PN_ITS ---
Subjective 2 Subjective: Patient was seen this morning, he is alert to person, tube place, not to time, he can follow commands, but at times he is tangential, he starts talking to himself, some of his responses do not make sense, he tells me that he took tramadol, but he is not exactly sure where he got it, he denies any suicidal ideation, no homicidal ideation, he keeps repeating who I am, he keeps asking where he is, he had episodes of agitation this morning, but is much more calm, Vitals/I&O/Wt Last Vital Signs Temp 99.7 F H 10/22/24 21:45 Pulse 54 L 10/23/24 17:15 Resp 62 H 10/23/24 09:30 BP 116/85 10/23/24 17:15 Pulse Ox 99 10/23/24 17:15 O2 Del Method Room Air 10/22/24 20:49 10/23/24 10/23/24 10/23/24 06:59 14:59 22:59 Intake Total 2135.419 / 2148.037 1546.360 / 1546.360 31.047 / 1577.407 Output Total 500 / 500 200 / 700 Balance 2135.419 / 2148.037 1046.360 / 1046.360 -168.953 / 877.407 Weight last 48 hrs Weight 95.254 kg Physical Exam 2 Const: COMMON NORMALS: no acute distress ORIENTATION/CONSCIOUSNESS: Yes awake, Yes oriented to person and Yes oriented to place; not oriented to time Eye: COMMON NORMALS: Equal, round and reactive pupils present and EOMs intact bilaterally PUPIL: Yes Equal, round and reactive pupils present Resp: COMMON NORMALS: normal respiratory effort, No retractions, No use of accessory muscles and clear to auscultation bilaterally AUSCULTATION: clear to auscultation bilaterally Cardio: COMMON NORMALS: regular rate, regular rhythm, S1 normal heart sound present and S2 normal heart sound present RATE: regular rate RHYTHM: r egular rhythm HEART SOUNDS: S1 normal heart sound present and S2 normal heart sound present GI: COMMON NORMALS: Normal to inspection, nondistended, normoactive bowel sounds present and non-tender Extremity: COMMON NORMALS: no calf tenderness and no pedal edema Neuro: COMMON NORMALS: CN's II-XII intact bilaterally, moves all extremities and no focal motor deficits SENSORIUM/ORIENTATION: Yes oriented to person, Yes oriented to place and No oriented to time Data 10/23/24 04:09 10/23/24 04:09 A&P Assessment and plan 1. Acute psychosis: 2. Polysubstance abuse: 3. Outbursts of explosive behavior: 4. Essential hypertension: 5. Infected dental caries: 6. Elevated blood pressure readin. Myalgia: 8. Nicotine use disorder: Plan: Altered mental status -Concerns for acute psychosis secondary to unknown polysubstance ingestion - Monitor ICU - Currently on Precedex drip -Continue telemetry monitoring - Continue IV fluids at 125 cc Dehydration - Continue IV fluids Right scalp hematoma, monitor Nicotine addiction -Continue nicotine patch Hypertension - Monitor Anxiety disorder -Patient can continue BuSpar 15 mg twice daily -Clonazepam 0.5 mg twice daily as needed Right foot XR/XR foot RT 2V [id number] IMPRESSION: Acute comminuted fracture of the 5th metatarsal with mild foreshortening and medial displacement. -Consult podiatry PDMP PDMP Reviewed: Not Reviewed Attestations 2 Medical Necessity Statement*: Patient requires hospitalization for altered mental status, dehydration Diagnoses Acute psychosis F23 Polysubstance abuse F19.10 Outbursts of explosive behavior R46.89 Essential hypertension I10 Infected dental caries K02.9; K04.7 Elevated blood pressure reading R03.0 Myalgia M79.10 Nicotine use disorder F17.200
[2024-10-23] MEDS: morphine 4 mg/mL SDV 1 mL 2 MG IVP (20:16)
[2024-10-24] VITALS (41 sets, daily range): BP systolic 94–129; BP diastolic 47–83; PULSE 58–97; RESP 15–25; TEMP 36.5–37.1; O2SAT 95–100
[2024-10-24] MEDS: LORazepam 1 MG/0.5 ML injection 2 MG IM (02:37)
[2024-10-24 03:57] LABS: Hematocrit 36.7 % (37-53); Hemoglobin 12.60 g/dL (11.27-16.99); Mean Corpuscular HGB Conc 34.3 g/dL (30-55); Mean Corpuscular Hemoglobin 29.9 pg (27-33); Mean Corpuscular Volume 87.0 fl (82-101); Nucleated Red Blood Cells % 0 %; Platelet Count 254 10^3/cmm (157-399); Red Blood Count 4.22 10^6/uL (3.85-5.65); White Blood Count 7.29 10^3/uL (3.29-11.43)
--- NOTE | 2024-10-24 04:11 | PC.NURSE ---
Pt has had consistent complaints of pain to right foot and knees. Has received morphine for pain and has thus far been ineffective. Reported to this nurse that he takes a drug from the vape store called 7OH (7-hydroxymitragynine) and takes 800 mg daily. States that he does not process opiates the same as the average person due to his excessive use of this drug and was agreeable to trying ibuprofen for pain relief. Contacted Dr. Hernandez and order received for ibuprofen 600 mg q 6 prn.
[2024-10-24 04:27] LABS: Alanine Aminotransferase 21 U/L (0-41); Albumin Level 3.5 g/dL (3.5-5.2); Alkaline Phosphatase 59 U/L (40-130); Anion Gap 15.7 (5-19); Aspartate Amino Transferase 38 U/L (0-40); Blood Urea Nitrogen 16 mg/dL (6-20); Calcium 8.4 mg/dL (8.5-10.5); Carbon Dioxide 22 mmol/L (22-29); Chloride 101 mmol/L (98-107); Creatinine Clr Calc Pharmacy 202.8581; Globulin 2.5 g/dL (1.3-4.6); Glucose 95 mg/dL (65-115); Magnesium 1.8 mg/dL (1.7-2.3); Osmolality Calculated 281 mOsm/kg (285-295); Potassium 3.7 mmol/L (3.5-5.1); Sodium 135 mmol/L (136-145); Total Protein 6.0 g/dL (6.6-8.7)
[2024-10-24] MEDS: morphine 4 mg/mL SDV 1 mL 2 MG IVP ×2 (05:32→10:41)
--- NOTE | 2024-10-24 08:15 | PC.OT ---
OT EVALUATION ORDERS RECEIVED FOR NPU GROUPS. PATIENT REMAINS IN ICU. WILL HOLD EVALUATION UNTIL TRANSFER TO NPU
[2024-10-24] MEDS: heparin 5,000 unit/mL INJ 1 mL 5000 UNIT SUBCUT (08:57)
--- NOTE | 2024-10-24 09:15 | XRR_ITS ---
PROCEDURE INFORMATION: Exam: XR Left Hand Exam date and time: 10/24/2024 9:44 AM Age: 33 years old Clinical indication: Pain; Hand; Bilateral TECHNIQUE: Imaging protocol: Radiologic exam of the left hand. Views: 3 or more views. COMPARISON: No relevant prior studies available. FINDINGS: Bones/joints: Normal. No fracture or dislocation. No acute osseous, joint, or soft tissue abnormality. Soft tissues: Normal. XR/XR hand LT 2V [id number] IMPRESSION: No acute findings.
--- NOTE | 2024-10-24 09:15 | XRR_ITS ---
PROCEDURE INFORMATION: Exam: XR Left Knee Exam date and time: 10/24/2024 9:41 AM Age: 33 years old Clinical indication: Pain; Knee; Left TECHNIQUE: Imaging protocol: Radiologic exam of the left knee. Views: 1 or 2 views. COMPARISON: No relevant prior studies available. FINDINGS: Bones/joints: Normal. No fracture or dislocation. No acute osseous, joint, or soft tissue abnormality. Soft tissues: Normal. XR/XR knee LT 1-2V [id number] IMPRESSION: No acute findings.
--- NOTE | 2024-10-24 09:17 | XRR_ITS ---
PROCEDURE INFORMATION: Exam: XR Right Hand Exam date and time: 10/24/2024 9:46 AM Age: 33 years old Clinical indication: Pain; Hand; Bilateral TECHNIQUE: Imaging protocol: Radiologic exam of the right hand. Views: 1 or 2 views. COMPARISON: No relevant prior studies available. FINDINGS: Bones/joints: Normal. No fracture or dislocation. No acute osseous or joint abnormality. Soft tissues: Normal. XR/XR hand RT 2V [id number] IMPRESSION: No acute findings.
--- NOTE | 2024-10-24 11:13 | PC.NURSE ---
Report called to NPU. Report given to NICKI Wall. Pt to have lunch in ICU then when ICU called back from NPU , pt to transfer.
--- NOTE | 2024-10-24 13:16 | PC.NURSE ---
Pt transferred to NPU. His Dad Roe notified of transfer via telephone
--- NOTE | 2024-10-24 13:52 | P.PN_ITS ---
Subjective 2 Subjective: - Patient was examined this morning - He is currently alert oriented x 3, fo llowing all commands - He does not remember which medications he took, but does believe one of them was tramadol - Denies any headache, no blurry vision, no nausea, vomiting, no neck pain, no back pain, no shoulder pain - He does complain of pain in in his rig ht foot, he is in a boot, but tells me that the pain medication is helping with his pain - He does complain of pain around bilate ral wrist where his wrist restraints were, discussed trying topical steroids, aloe vera continue to monitor them closely - He does complain of pain in bilateral hands, and pain in his left knee, we discussed doing x-rays to make sure he does not have a fracture,, he is in agreement - On examination there is no point tende rness on palpation of bilateral hands, good range of motion, good strength, able to rubber process hand my fingers, - Left knee, examination, no significant erythema, swelling, tenderness, good range of motion, ACL sign negative, PCL sign negative - Right knee examination, no skin erythe ma, no swelling, no tenderness, good range of motion, ACL sign negative, PCL sign negative - Discussed continued monitoring and out patient follow-up with podiatry, for his right foot acute commuted fracture of the fifth metatarsal - Discussed with him that if he has any other pain complaints, or any other issues, we can certainly do any further imaging, but he denies any other complaints, no abdominal pain, no chest pain, no shortness of breath, Vitals/I&O/Wt Last Vital Signs Temp 98.7 F 10/24/24 13:40 Pulse 79 10/24/24 13:40 Resp 18 10/24/24 13:40 BP 120/74 10/24/24 13:40 Pulse Ox 100 10/24/24 13:40 O2 Del Method Room Air 10/24/24 13:40 10/23/24 10/24/24 10/24/24 22:59 06:59 14:59 Intake Total 483.736 / 2030.096 582.5 / 2612.596 1166.25 / 1166.25 Output Total 200 / 700 Balance 283.736 / 1330.096 582.5 / 2483.636 5291.25 / 1166.25 Physical Exam 2 Const: COMMON NORMALS: no acute distress and patient oriented x3 Resp: COMMON NORMALS: normal respiratory effort, No retractions, No use of accessory muscles and clear to auscultation bilaterally AUSCULTATION: clear to auscultation bilaterally Cardio: COMMON NORMALS: regular rate, regular rhythm, S1 normal heart sound present and S2 normal heart sound present RATE: regular rate RHYTHM: r egular rhythm HEART SOUNDS: S1 normal heart sound present and S2 normal heart sound present GI: COMMON NORMALS: Normal to inspection, nondistended, normoactive bowel sounds present and non-tender Extremity: COMMON NORMALS: no calf tenderness and no pedal edema Neuro: COMMON NORMALS: patient oriented x3 Psych: COMMON NORMALS: mental status grossly normal Skin: NARRATIVE SKIN EXAM: Right foot in a boot - Left foot no palpable abnormalities, g ood dorsal and plantar flexion, good foot inversion, eversion, no point tenderness, no pain complaints - Left foot, second digit, nail does collin w evidence of erosion/healed bleeding - Good DP PT pulses - Left knee examination, ACL negative, P CL sign negative, good range of motion, no palpable abnormalities, no overlying skin changes # Right knee, ACL standing of the PCL negative, good range of motion, no palpable abnormalities, no overlying skin changes Bilateral thighs, no skin changes Abdomen no skin changes Right wrist, does have erythema, swelling, tenderness, right wrist measuring 3 cm long, 1 cm in width Left wrist does have erythema, swelling, tenderness measuring 3 cm long, 1 cm in width Spine evaluation, cervical spine intact, good range of motion, no spinal tenderness, no paracervical tenderness Thoracic spine intact, no spinal tenderness, no paraspinal tenderness Lumbar spine intact, no spinal tenderness present, no paraspinal tenderness Does have an area of bruising left flank, measuring 1 x 1 cm, no tenderness on palpation Bilateral shoulder examination, good range of motion, no clicking, no popping, no AC joint tenderness, no clavicular tenderness, on palpation bilaterally Chest examination, no overlying bruising, no sternal tenderness, no costochondral tenderness bilateral sides Abdomen soft, nondistended, nontender, no bruising Data 10/24/24 03:37 10/24/24 03:37 A&P Assessment and plan 1. Acute psychosis: 2. Polysubstance abuse: 3. Outbursts of explosive behavior: 4. Essential hypertension: 5. Infected dental caries: 6. Elevated blood pressure readin. Myalgia: 8. Nicotine use disorder: Plan: Altered mental status, resolved -Concerns for acute psychosis secondary to unknown polysubstance ingestion - Will moved to neuropsych - Off Precedex drip - Stop fluids Dehydration - Continue IV fluids, completed Right scalp hematoma, monitor Nicotine addiction -Continue nicotine patch Hypertension - Monitor Anxiety disorder -Patient can continue BuSpar 15 mg twice daily -Clonazepam 0.5 mg twice daily as needed Right foot -Patient reported repeatedly stomping and traumatizing his own right foot, then developing pain and swelling and erythema thereafter, reports it happening in the ER and in the neuropsychiatric unit XR/XR foot RT 2V [id number] IMPRESSION: Acute comminuted fracture of the 5th metatarsal with mild foreshortening and medial displacement. -Consult podiatry -Currently in a boot -Conservatively manage, weight-bear as tolerated in cam boot, crutches, follow- up with podiatry in 1 week PDMP PDMP Reviewed: Not Reviewed Attestations 2 Medical Necessity Statement*: Patient requires hospitalization for altered mental status, resolved, psychosis, moved to neuropsychiatric unit, right foot fifth metatarsal fracture, conservatively intervention Diagnoses Acute psychosis F23 Polysubstance abuse F19.10 Outbursts of explosive behavior R46.89 Essential hypertension I10 Infected dental caries K02.9; K04.7 Elevated blood pressure reading R03.0 Myalgia M79.10 Nicotine use disorder F17.200
--- NOTE | 2024-10-24 14:34 | PC.ADMIT ---
[email or web address] [facility] Admission Note: The patient,Hattie Ibarra,33 y/o, was given written information regarding hospital policies, unit procedures and contact persons. Patient's smoking status: current every day smoker. Vital Signs - 8 hr 10/24/24 07:10 10/24/24 07:15 10/24/24 07:30 Temperature Pulse Rate Respiratory Rate Blood Pressure 115/70 115/70 115/70 Pulse Oximetry Oxygen Delivery Method 10/24/24 07:45 10/24/24 08:00 10/24/24 09:00 Temperature 98.1 F Pulse Rate 74 97 Respiratory Rate 25 H 20 H Blood Pressure 115/70 129/80 129/80 Pulse Oximetry Oxygen Delivery Method 10/24/24 10:00 10/24/24 10:41 10/24/24 11:00 Temperature Pulse Rate 73 68 Respiratory Rate 20 H 20 H 18 Blood Pressure 116/68 100/47 Pulse Oximetry 96 96 Oxygen Delivery Method Room Air 10/24/24 12:00 10/24/24 13:40 10/24/24 13:57 Temperature 98.7 F 98.7 F Pulse Rate 59 L 79 79 Respiratory Rate 15 18 18 Blood Pressure 111/77 120/74 120/74 Pulse Oximetry 100 96 Oxygen Delivery Method Room Air Room Air 10/24/24 14:00 10/24/24 14:10 10/24/24 14:25 Temperature 98.7 F 98.7 F Pulse Rate 79 79 Respiratory Rate 18 18 Blood Pressure 120/74 120/74 Pulse Oximetry 98 Oxygen Delivery Method Room Air Room Air
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
[2024-10-24] MEDS: buprenorphine-naloxone 4-1 mg Film 1 EACH SUBLINGUAL (17:34)
[2024-10-25 06:00] VITALS: BP 100/69; PULSE 70; RESP 16; TEMP 36.6; O2SAT 97
[2024-10-25 07:47] LABS: Hematocrit 37.9 % (37-53); Hemoglobin 12.80 g/dL (11.27-16.99); Mean Corpuscular HGB Conc 33.8 g/dL (30-55); Mean Corpuscular Hemoglobin 29.8 pg (27-33); Mean Corpuscular Volume 88.3 fl (82-101); Nucleated Red Blood Cells % 0 %; Platelet Count 292 10^3/cmm (157-399); Red Blood Count 4.29 10^6/uL (3.85-5.65); White Blood Count 5.07 10^3/uL (3.29-11.43)
[2024-10-25] MEDS: buprenorphine-naloxone 4-1 mg Film 1 EACH SUBLINGUAL ×2 (08:02→17:13)
[2024-10-25 08:12] LABS: Alanine Aminotransferase 21 U/L (0-41); Albumin Level 3.4 g/dL (3.5-5.2); Alkaline Phosphatase 58 U/L (40-130); Anion Gap 13.1 (5-19); Aspartate Amino Transferase 27 U/L (0-40); Blood Urea Nitrogen 13 mg/dL (6-20); Calcium 8.4 mg/dL (8.5-10.5); Carbon Dioxide 25 mmol/L (22-29); Chloride 105 mmol/L (98-107); Creatinine Clr Calc Pharmacy 202.8581; Globulin 2.7 g/dL (1.3-4.6); Glucose 90 mg/dL (65-115); Magnesium 2.0 mg/dL (1.7-2.3); Osmolality Calculated 288 mOsm/kg (285-295); Potassium 4.1 mmol/L (3.5-5.1); Sodium 139 mmol/L (136-145); Total Protein 6.1 g/dL (6.6-8.7)
[2024-10-25 14:00] VITALS: BP 121/84; PULSE 78; RESP 20; TEMP 37.1; O2SAT 99
--- NOTE | 2024-10-25 17:52 | P.NPUPN_ITS ---
Subjective NPU 2 Subjective: 33-year-old male admitted with psychosis and agitation after ingesting 7-OH for several weeks on daily basis. The patient had continued to ask for medications to manage his anxiety today. The patient had stated that he was thinking more about getting outpatient substance abuse treatment and attending Narcotics Anonymous. The patient's father had stated on visit to this contract technical writer that the patient was unable to manage his illness at home and that the patient had been taking too many medications and misusing his outpatient medications. The patient had reported significant improvement with the induction of Suboxone yesterday at a total of 8 mg/day. He had reported no side effects and stated that he felt much calmer and normal . He had continued to report a long history of PTSD symptoms along with symptoms suggestive of generalized anxiety disorder. Mental Status Exam 2 MSE Comments: This is a disheveled male with long hair with poor grooming sitting in the bed with a walker nearby with his foot in a cast. He was pleasant and cooperative on interview. He was alert and oriented to person, place, time, and situation. His speech was normal in regards to rate, rhythm, and prosody. His mood was described as better. His affect was still restricted in range. His thought process was linear, logical, and goal-directed. His thought content showed no evidence of homicidal or suicidal ideation. There was no evidence of delusional thinking. He did not appear to be responding to internal stimuli. His attention span appeared improved. His recent and remote memory appeared grossly intact. His insight is limited. His judgment appeared poor. His impulse control appeared better. Vitals/I&O/Wt Last Vital Signs Temp 98.8 F 10/25/24 14:00 Pulse 78 10/25/24 14:00 Resp 20 H 10/25/24 14:00 BP 121/84 10/25/24 14:00 Pulse Ox 99 10/25/24 14:00 O2 Del Method Room Air 10/25/24 14:00 Data NPU 10/25/24 07:34 10/25/24 07:34 A&P Assessment and plan 1. Opioid abuse with opioid-induced psychotic disorder: 2. Substance-induced psychotic disorder: 3. Generalized anxiety disorder: 4. Major depression: Plan: 33-year-old male with a history of anxiety, PTSD, and depression admitted with psychosis likely secondary to 7 hydroxy use for several months. 1. 7 hydroxy is a is a partial mu agonist and likely can be associated with psychosis. He has been using opiates in some form for several months and may be a good candidate for the use of Suboxone to target this active problem. We will begin with Suboxone at 4/1 mg twice a day. 2. Continue klonopin and buspar as precribed along with celexa. 3. Continue to encourage individual milieu and group therapy 4. Continue to encourage sobriety to the highest level care to which the patient is willing to commit. 5. Patient to remain on 96 hour hold. 6. Patient likely in need of acute inpatient substance abuse treatment in 28 day program. PDMP PDMP Reviewed: Not Reviewed Involuntary Hold Information 2 Hold Status: Legal Status: 96 Hour Hold Date/Time Hold Expires: 0 10/29/24@0001 96 Hour Hold: 96 Hour Involuntary Admission: No Attestations NPU 2 Medical Necessity Statement*: Inpatient hospitalization is medically necessary and the clinically appropriate intervention, at this time. We will monitor medications and make changes as indicated. The patient's likely length of stay is 3-5 days. Coding Level of Care Code Acute Code for [facility] Fwd Diagnoses Opioid abuse with opioid-induced psychotic disorder F11.159 Substance-induced psychotic disorder F19.959 Generalized anxiety disorder F41.1 Episode of recurrent major depressive disorder, unspecified depression episode severity F33.9 Active/Remission status: currently active Major depression episode severity: unspecified Major depression recurrence: recurrent
[2024-10-25 19:36] VITALS: BP 102/63; PULSE 70; RESP 17; TEMP 36.6; O2SAT 95
[2024-10-26 06:00] VITALS: BP 118/83; PULSE 92; RESP 18; TEMP 37; O2SAT 96
[2024-10-26] MEDS: buprenorphine-naloxone 4-1 mg Film 1 EACH SUBLINGUAL ×2 (08:36→17:53)
[2024-10-26 09:32] LABS: Hematocrit 39.2 % (37-53); Hemoglobin 13.10 g/dL (11.27-16.99); Mean Corpuscular HGB Conc 33.4 g/dL (30-55); Mean Corpuscular Hemoglobin 29.8 pg (27-33); Mean Corpuscular Volume 89.1 fl (82-101); Nucleated Red Blood Cells % 0 %; Platelet Count 325 10^3/cmm (157-399); Red Blood Count 4.40 10^6/uL (3.85-5.65); White Blood Count 7.46 10^3/uL (3.29-11.43)
[2024-10-26 09:46] LABS: Alanine Aminotransferase 24 U/L (0-41); Albumin Level 3.7 g/dL (3.5-5.2); Alkaline Phosphatase 63 U/L (40-130); Anion Gap 17.9 (5-19); Aspartate Amino Transferase 23 U/L (0-40); Blood Urea Nitrogen 12 mg/dL (6-20); Calcium 8.9 mg/dL (8.5-10.5); Carbon Dioxide 23 mmol/L (22-29); Chloride 102 mmol/L (98-107); Creatinine Clr Calc Pharmacy 173.8784; Globulin 2.8 g/dL (1.3-4.6); Glucose 78 mg/dL (65-115); Magnesium 1.8 mg/dL (1.7-2.3); Osmolality Calculated 287 mOsm/kg (285-295); Potassium 3.9 mmol/L (3.5-5.1); Sodium 139 mmol/L (136-145); Total Protein 6.5 g/dL (6.6-8.7)
[2024-10-26 14:00] VITALS: BP 122/79; PULSE 78; RESP 16; TEMP 37.1; O2SAT 98
--- NOTE | 2024-10-26 14:59 | P.NPUPN_ITS ---
Subjective NPU 2 Subjective: Patient presented today reporting that things are going fine. He reports having little memory of the things that were going on recently and that he was struggling with the idea of going to rehab reporting that yesterday, with money to take care of some different things. We discussed the importance of him exploring if there are options because the need for him to put supreme effort into his sobriety is significant. He denied any side effects of medication. Mental Status Exam 2 MSE Comments: This is a disheveled male with long hair with poor grooming sitting in the bed with a walker nearby with his foot in a cast. He was pleasant and cooperative on interview. He was alert and oriented to person, place, time, and situation. His speech was normal in regards to rate, rhythm, and prosody. His mood was described as better. His affect was still restricted in range. His thought process was linear, logical, and goal-directed. His thought content showed no evidence of homicidal or suicidal ideation. There was no evidence of delusional thinking. He did not appear to be responding to internal stimuli. His attention span appeared improved. His recent and remote memory appeared grossly intact. His insight is limited. His judgment appeared poor. His impulse control appeared better. Vitals/I&O/Wt Last Vital Signs Temp 98.6 F 10/26/24 06:00 Pulse 92 10/26/24 06:00 Resp 18 10/26/24 06:00 BP 118/83 10/26/24 06:00 Pulse Ox 96 10/26/24 06:00 O2 Del Method Room Air 10/26/24 06:00 Data NPU 10/26/24 09:12 10/26/24 09:12 A&P Assessment and plan 1. Opioid abuse with opioid-induced psychotic disorder: 2. Substance-induced psychotic disorder: 3. Generalized anxiety disorder: 4. Major depression: Plan: 33-year-old male with a history of anxiety, PTSD, and depression admitted with psychosis likely secondary to 7 hydroxy use for several months. 1. 7 hydroxy is a is a partial mu agonist and likely can be associated with psychosis. He has been using opiates in some form for several months and may be a good candidate for the use of Suboxone to target this active problem. We will begin with Suboxone at 4/1 mg twice a day. 2. Continue klonopin and buspar as precribed along with celexa. 3. Continue to encourage individual milieu and group therapy 4. Continue to encourage sobriety to the highest level care to which the patient is willing to commit. 5. Patient to remain on 96 hour hold. 6. Patient likely in need of acute inpatient substance abuse treatment in 28 day program. PDMP PDMP Reviewed: Not Reviewed Involuntary Hold Information 2 Hold Status: Legal Status: 96 Hour Hold Date/Time Hold Expires: 0 10/29/24@0001 96 Hour Hold: 96 Hour Involuntary Admission: No Attestations NPU 2 Medical Necessity Statement*: Inpatient hospitalization is medically necessary and the clinically appropriate intervention, at this time. We will monitor medications and make changes as indicated. The patient's likely length of stay is 2-4 days. Coding Level of Care Code Acute Code for [facility] Fwd Diagnoses Opioid abuse with opioid-induced psychotic disorder F11.159 Substance-induced psychotic disorder F19.959 Generalized anxiety disorder F41.1 Episode of recurrent major depressive disorder, unspecified depression episode severity F33.9 Active/Remission status: currently active Major depression episode severity: unspecified Major depression recurrence: recurrent
[2024-10-26 19:57] VITALS: BP 118/84; PULSE 94; RESP 18; TEMP 37.1; O2SAT 97
--- NOTE | 2024-10-27 01:45 | PC.NURSE ---
pt moved rooms at 0140 from 151 to 128 bed 2
[2024-10-27 06:00] VITALS: BP 119/78; PULSE 79; RESP 18; TEMP 36.9; O2SAT 100
[2024-10-27] MEDS: buprenorphine-naloxone 4-1 mg Film 1 EACH SUBLINGUAL ×2 (08:33→17:21)
[2024-10-27] MEDS: bacitracin ointment 28 gm 1 APPLIC TOPICAL (08:39)
--- NOTE | 2024-10-27 10:29 | NUR.SHIFT ---
Pt states that he was up and down all night. He states that his anxiety has stayed under a 5 and depression a 0/10. No reports of SI/HI or hallucinations. He rates his rt. foot pain a 6/10. He talked about what brought him in and how he was in ICU. He is calm and cooperative on assessment.
[2024-10-27 14:00] VITALS: BP 108/74; PULSE 83; RESP 16; TEMP 36.4; O2SAT 98
--- NOTE | 2024-10-27 19:40 | P.NPUPN_ITS ---
Subjective NPU 2 Subjective: Patient presented today reporting that he doing well and he feels he now has a plan for discharge. He continues to move further further from the discussions of inpatient rehab especially as we talked about his medications that he is prescribed including Suboxone and Klonopin and how these medications can present challenges with trying to get into some kind of a sober living facility. He was lobbying to be able to just go home and focus on work and disability and finances [employer]. We discussed the critical need for him to be on top of his sobriety for anything else to be successful. He communicated what he thought he needed for success and we discussed how this sounded more like a list of what he wants to happen and that it seems to lack any focus on what would be needed for him to have success in his sobriety. He denied any side effects to the medication. Mental Status Exam 2 MSE Comments: This is a disheveled male with long hair with poor grooming sitting in the bed with a walker nearby with his foot in a cast. He was pleasant and cooperative on interview. He was alert and oriented to person, place, time, and situation. His speech was normal in regards to rate, rhythm, and prosody. His mood was described as better. His affect was still restricted in range. His thought process was linear, logical, and goal-directed. His thought content showed no evidence of homicidal or suicidal ideation. There was no evidence of delusional thinking. He did not appear to be responding to internal stimuli. His attention span appeared improved. His recent and remote memory appeared grossly intact. His insight is limited. His judgment appeared poor. His impulse control appeared better. Vitals/I&O/Wt Last Vital Signs Temp 97.6 F 10/27/24 14:00 Pulse 83 10/27/24 14:00 Resp 16 10/27/24 14:00 BP 108/74 10/27/24 14:00 Pulse Ox 98 10/27/24 14:00 O2 Del Method Room Air 10/27/24 14:00 Data NPU 10/26/24 09:12 10/26/24 09:12 A&P Assessment and plan 1. Opioid abuse with opioid-induced psychotic disorder: 2. Substance-induced psychotic disorder: 3. Generalized anxiety disorder: 4. Major depression: Plan: 33-year-old male with a history of anxiety, PTSD, and depression admitted with psychosis likely secondary to 7 hydroxy use for several months. 1. 7 hydroxy is a is a partial mu agonist and likely can be associated with psychosis. He has been using opiates in some form for several months and may be a good candidate for the use of Suboxone to target this active problem. We will begin with Suboxone at 4/1 mg twice a day. 2. Continue klonopin and buspar as precribed along with celexa. 3. Continue to encourage individual milieu and group therapy 4. Continue to encourage sobriety to the highest level care to which the patient is willing to commit. 5. Patient to remain on 96 hour hold. 6. Patient likely in need of acute inpatient substance abuse treatment in 28 day program. PDMP PDMP Reviewed: Not Reviewed Involuntary Hold Information 2 Hold Status: Legal Status: 96 Hour Hold Date/Time Hold Expires: 0 10/29/24@0001 96 Hour Hold: 96 Hour Involuntary Admission: No Attestations NPU 2 Medical Necessity Statement*: Inpatient hospitalization is medically necessary and the clinically appropriate intervention, at this time. We will monitor medications and make changes as indicated. The patient's likely length of stay is 2-4 days. Coding Level of Care Code Acute Code for [facility] Fwd Diagnoses Opioid abuse with opioid-induced psychotic disorder F11.159 Substance-induced psychotic disorder F19.959 Generalized anxiety disorder F41.1 Episode of recurrent major depressive disorder, unspecified depression episode severity F33.9 Active/Remission status: currently active Major depression episode severity: unspecified Major depression recurrence: recurrent
[2024-10-27 20:20] VITALS: BP 122/85; PULSE 89; RESP 18; TEMP 36.7; O2SAT 100
[2024-10-28 06:00] VITALS: BMI 33.1
--- NOTE | 2024-10-28 06:24 | PC.NURSE ---
pt sleeping soundly after restless night, resp 16
[2024-10-28] MEDS: buprenorphine-naloxone 4-1 mg Film 1 EACH SUBLINGUAL ×2 (08:37→17:54)
--- NOTE | 2024-10-28 09:44 | NUR.SHIFT ---
Pt states that he slept horribly last night. He was up and down all night. He rates his anxiety a 5/10 and depression a 0/10. No reports of SI/HI or hallucinations. He is more quiet and withdrawn today and he is visibly tired. He rates his Rt foot pain a 7/10 and states that he has been using tylenol as needed for this. He is calm and cooperative on assessment and lays back down to sleep as I exit the room.
[2024-10-28 14:00] VITALS: BP 102/70; PULSE 88; RESP 16; TEMP 36.6; O2SAT 98
--- NOTE | 2024-10-28 15:46 | PC.NURSE ---
Pt states that he is staying really hungry in here and today is the worst. I spoke with Dr. Diggs and he approved for pt to have double portions. I have entered the order.
--- NOTE | 2024-10-28 17:31 | P.NPUPN_ITS ---
Subjective NPU 2 Subjective: Patient presented today reporting that he is doing better and feels that he should go home tomorrow. He is fully moved away from any talk of going to rehab. Intensive addiction treatment is met by reason/excuses for why he felt that going into a program would be counterproductive. We discussed the fact that he has limited things to do at this time and so has plenty of time for it but he discusses financial concerns excetra. Some of the things he brings up are silly including not being able to have a stone possibly so he can keep in touch with people but ultimately we did discuss the fact that him taking Suboxone and Klonopin could be a rate limiting step in finding a program as most programs are not excited about taking people that are all controlled substances. We discussed working with the social work team tomorrow and considering all the possibilities before determining discharge plan. He denied any side effects of his medications. Mental Status Exam 2 MSE Comments: This is a disheveled male with long hair with poor grooming sitting in the bed with a walker nearby with his foot in a cast. He was pleasant and cooperative on interview. He was alert and oriented to person, place, time, and situation. His speech was normal in regards to rate, rhythm, and prosody. His mood was described as better. His affect was still restricted in range. His thought process was linear, logical, and goal-directed. His thought content showed no evidence of homicidal or suicidal ideation. There was no evidence of delusional thinking. He did not appear to be responding to internal stimuli. His attention span appeared improved. His recent and remote memory appeared grossly intact. His insight is limited. His judgment appeared poor. His impulse control appeared better. Vitals/I&O/Wt Last Vital Signs Temp 98 F 10/28/24 14:00 Pulse 88 10/28/24 14:00 Resp 16 10/28/24 14:00 BP 102/70 10/28/24 14:00 Pulse Ox 98 10/28/24 14:00 O2 Del Method Room Air 10/28/24 14:00 Weight last 48 hrs Weight 104.837 kg Data NPU 10/26/24 09:12 10/26/24 09:12 A&P Assessment and plan 1. Opioid abuse with opioid-induced psychotic disorder: 2. Substance-induced psychotic disorder: 3. Generalized anxiety disorder: 4. Major depression: Plan: 33-year-old male with a history of anxiety, PTSD, and depression admitted with psychosis likely secondary to 7 hydroxy use for several months. 1. 7 hydroxy is a is a partial mu agonist and likely can be associated with psychosis. He has been using opiates in some form for several months and may be a good candidate for the use of Suboxone to target this active problem. We will begin with Suboxone at 4/1 mg twice a day. 2. Continue klonopin and buspar as precribed along with celexa. 3. Continue to encourage individual milieu and group therapy 4. Continue to encourage sobriety to the highest level care to which the patient is willing to commit. 5. Patient to remain on 96 hour hold. 6. Patient likely in need of acute inpatient substance abuse treatment in 28 day program. Patient continues to digress and have reasons/excuses for why a sober living program is not in his best interest. PDMP PDMP Reviewed: Not Reviewed Involuntary Hold Information 2 Hold Status: Legal Status: 96 Hour Hold Date/Time Hold Expires: 0 10/29/24@0001 96 Hour Hold: 96 Hour Involuntary Admission: No Attestations NPU 2 Medical Necessity Statement*: Inpatient hospitalization is medically necessary and the clinically appropriate intervention, at this time. We will monitor medications and make changes as indicated. The patient's likely length of stay is 1-3 days. Coding Level of Care Code Acute Code for [facility] Fwd Diagnoses Opioid abuse with opioid-induced psychotic disorder F11.159 Substance-induced psychotic disorder F19.959 Generalized anxiety disorder F41.1 Episode of recurrent major depressive disorder, unspecified depression episode severity F33.9 Active/Remission status: currently active Major depression episode severity: unspecified Major depression recurrence: recurrent
[2024-10-28 20:51] VITALS: BP 100/63; PULSE 70; RESP 16; TEMP 36.4; O2SAT 98
[2024-10-29 06:00] VITALS: BP 116/81; PULSE 95; RESP 16; TEMP 36.6; O2SAT 99
[2024-10-29] MEDS: buprenorphine-naloxone 4-1 mg Film 1 EACH SUBLINGUAL ×2 (08:21→17:10)
[2024-10-29 14:00] VITALS: BP 108/73; PULSE 87; RESP 18; TEMP 36.6; O2SAT 96
--- NOTE | 2024-10-29 17:21 | W.PM.NPUPNS ---
Subjective NPU Subjective: Patient presented today reporting that he was hopeful for discharge tomorrow just wondering what the plan would be. He was asking about sleep options and brought him Ambien. We discussed the need to avoid additional controlled substances. We discussed the risks, benefits and alternatives of adding doxepin 10 mg p.o. nightly for sleep and he understood and agreed to proceed as documented in this note. He denied any side effects of his medication and we discussed the likely plan for discharge tomorrow although we may clear that attending a rehab would be preferable. Mental Status Exam MSE Comments: This is an overweight versus obese white male in hospital scrubs with limited grooming but appropriate eye contact. No abnormal movements except for mild psychomotor retardation. Cooperative with exam in mild distress. He was alert and oriented to person, place, time, and situation. His speech was normal in regards to rate, rhythm, and prosody. His mood was described as better. His affect was still restricted in range. His thought process was linear, logical, and goal-directed. His thought content showed no evidence of homicidal or suicidal ideation. There was no evidence of delusional thinking. He did not appear to be responding to internal stimuli. His attention span appeared improved. His recent and remote memory appeared grossly intact. His insight is limited. His judgment appeared poor. His impulse control appeared better but still limited. Vitals/I&O/Wt Last Vital Signs Temp 97.9 F 10/29/24 14:00 Pulse 87 10/29/24 14:00 Resp 18 10/29/24 14:00 BP 108/73 10/29/24 14:00 Pulse Ox 96 10/29/24 14:00 O2 Del Method Room Air 10/29/24 06:00 Weight last 48 hrs Weight 104.837 kg Data NPU 10/26/24 09:12 10/26/24 09:12 A&P Assessment and plan 1. Opioid abuse with opioid-induced psychotic disorder: 2. Substance-induced psychotic disorder: 3. Generalized anxiety disorder: 4. Major depression: Plan: 33-year-old male with a history of anxiety, PTSD, and depression admitted with psychosis likely secondary to 7 hydroxy use for several months. 1. 7 hydroxy is a is a partial mu agonist and likely can be associated with psychosis. He has been using opiates in some form for several months and may be a good candidate for the use of Suboxone to target this active problem. We will begin with Suboxone at 4/1 mg twice a day. 2. Continue klonopin and buspar as precribed along with celexa. Add doxepin 10 mg p.o. nightly for sleep. 3. Continue to encourage individual milieu and group therapy 4. Continue to encourage sobriety to the highest level care to which the patient is willing to commit. 5. Patient to remain on 96 hour hold. 6. Patient likely in need of acute inpatient substance abuse treatment in 28 day program. Patient continues to digress and have reasons/excuses for why a sober living program is not in his best interest. PDMP PDMP Reviewed: Not Reviewed Involuntary Hold Information Hold Status: Legal Status: 96 Hour Hold Date/Time Hold Expires: 10/29/24@0001 96 Hour Hold: 96 Hour Involuntary Admission: No Attestations NPU Medical Necessity Statement*: Inpatient hospitalization is medically necessary and the clinically appropriate intervention, at this time. We will monitor medications and make changes as indicated. The patient's likely length of stay is 1-2 days. Coding Level of Care Code Acute Code for [facility] Fwd Diagnoses Opioid abuse with opioid-induced psychotic disorder F11.159 Substance-induced psychotic disorder F19.959 Generalized anxiety disorder F41.1 Episode of recurrent major depressive disorder, unspecified depression episode severity F33.9 Active/Remission status: currently active Major depression episode severity: unspecified Major depression recurrence: recurrent
[2024-10-29 19:55] VITALS: BP 107/73; PULSE 108; RESP 18; TEMP 36.5; O2SAT 98
--- NOTE | 2024-10-30 04:51 | PC.NURSE ---
SHIFT SUMMARY PATIENT STARTED ON DOXEPIN 10MG DAILY AT BEDTIME THIS NIGHT. PATIENT HAS RESTED WITHOUT S/S OF DISTRESS NOTED.
[2024-10-30 06:00] VITALS: BP 110/74; PULSE 78; RESP 16; O2SAT 96
--- NOTE | 2024-10-30 07:18 | PC.NURSE ---
pt concerns about rehab pt is concerned about his personal phone use. nicotine availability and he is concerend he wont have all his home meds since they arent in order for his parents to bring them to him.
[2024-10-30] MEDS: buprenorphine-naloxone 4-1 mg Film 1 EACH SUBLINGUAL (08:03)
[2024-10-30 12:59] VITALS: BP 116/77; PULSE 93; RESP 16; TEMP 37; O2SAT 96
[2024-10-30 14:32] VITALS: BP 116/77; PULSE 93; RESP 16; TEMP 37; O2SAT 96
[2024-10-30 15:13] VITALS: BP 116/77; PULSE 93; RESP 16; TEMP 37; O2SAT 96
== END 2024-10-30 16:05 | disposition home or self-care (01) | DRG 897 ==
LOC: ER 15:20 → NP 15:58 → ICU 20:56 → NP 10-24 13:21
PROVIDERS: Internal Medicine; Admitting Provider Psychiatry & Neurology Psychiatry; Emergency Provider Emergency Medicine; PCP Clinical Nurse Specialist Adult Health; Visit Provider Family Medicine
DX: F11.159 Opioid abuse with opioid-induced psychotic disorder, unspecified (principal); F33.9 Major depressive disorder, recurrent, unspecified; E86.0 Dehydration; K02.9 Dental caries, unspecified; F17.200 Nicotine dependence, unspecified, uncomplicated; I10 Essential (primary) hypertension; R00.0 Tachycardia, unspecified; Z78.1 Physical restraint status; M79.10 Myalgia, unspecified site; F41.1 Generalized anxiety disorder; F15.21 Other stimulant dependence, in remission; Z88.0 Allergy status to penicillin; Z81.8 Family history of other mental and behavioral disorders; S92.351A Displaced fracture of fifth metatarsal bone, right foot, initial encounter for closed fracture; W19.XXXA Unspecified fall, initial encounter; Y92.239 Unspecified place in hospital as the place of occurrence of the external cause; S00.03XA Contusion of scalp, initial encounter; F43.10 Post-traumatic stress disorder, unspecified; E66.3 Overweight; Z68.33 Body mass index [BMI] 33.0-33.9, adult
CPT/HCPCS: 36415; 70450; 73120; 73560; 73620; 80048; 80053; 80306; 80307; 83735; 84100; 85025; 93005; 96372; 97116; 97150; 97161; 97165; 97760; 99285; J0573; J1200; J1630; J1644; J2060; J2270; J3486; J7030; J9999; L4361

== ENCOUNTER 2024-12-02 18:40 | Emergency (ER) | payer MEDICAID, SELFPAY ==
[2024-12-02 18:43] VITALS: BP 137/85; PULSE 94; TEMP 36.7; O2SAT 99; BMI 36.9
--- NOTE | 2024-12-02 19:09 | W.ED.GENADLT ---
HPI - General Adult General: Chief complaint: Recheck/Abnormal Lab/Rx Stated complaint: Wants Med Changed Time Seen by Provider: 12/02/24 18:51 Source: patient Mode of arrival: ambulatory Limitations: no limitations History of Present Illness: Patient is a 33-year-old male who presents to the ED today with a complaint of increased anxiety and fear . Patient states he takes gabapentin off label by his [facility] medication provider. Patient states he was recently decreased on his dosing from QID to TID based on insurance reasons. States he ran out of this medication on Tuesday and has not had any and feels like his anxiety and fear are worse. He is not suicidal/homicidal. 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 Onset (ago): day(s) Relieving factors: none Exacerbating factors: other (Out of medication) Associated symptoms: Reports no associated symptoms; Deny chest pain, dyspnea, headache(s), malaise, nausea, palpitations or vomiting Treatments prior to arrival: none Related Data Previous Rx's ?Medication ?Instructions ?Recorded losartan 25 mg tablet 25 mg PO DAILY #30 tabs 05/17/24 diclofenac sodium 75 mg 75 mg PO Q12H PRN pain #20 tabs 08/28/24 tablet,delayed release baclofen 20 mg tablet 20 mg PO .HS #30 tabs 10/30/24 pantoprazole 40 mg tablet,delayed 40 mg PO DAILY 30 days #30 tabs 10/30/24 release buspirone 15 mg tablet 15 mg PO BID #60 tabs 11/22/24 doxepin 10 mg capsule 10 mg PO BEDTIME 30 days #30 caps 11/22/24 gabapentin 800 mg tablet 800 mg PO TID #90 tabs 11/22/24 propranolol 10 mg tablet 10 mg PO BID #60 tabs 11/22/24 trazodone 50 mg tablet 50 mg PO BEDTIME PRN Sleep 30 days 11/22/24 #30 tabs Allergies Allergy/AdvReac Type Severity Reaction Status Date / Time No Known Allergies Allergy Verified 12/02/24 18:48 Review of Systems Const: Denies: fever(s), chills, body aches, fatigue or malaise Eyes: Denies: change in vision or blurry vision Card: Denies: chest pain, palpitations or lightheadedness Resp: Denies: dyspnea GI: Denies: abdominal pain, nausea, vomiting or diarrhea Neuro: Denies: headache(s) or dizziness Psych: Reports: anxiety; Denies: hopelessness, paranoia, visual hallucinations, auditory hallucinations, suicidal ideation or homicidal ideation PFSH ED PFSH: Medical History Insomnia Major depressive disorder, recurrent, moderate Essential hypertension Generalized anxiety disorder Nicotine use disorder Major depressive disorder in remission Quit drug use in remote past Psychiatric care Major depression Surgical History No pertinent past surgical history Family History Mother Cancer breast cancer Father Psychiatric illness Social History Smoking and tobacco/nicotine status: never used tobacco/nicotine Quit status (tobacco/nicotine): has quit using Former quit date comment: 4 year history of smoking Alcohol intake: never Substance/Drug Use: former Household members: family Housing: House Marital status: Unknown Highest education level completed: Some College, No Degree Physical Exam Const: COMMON NORMALS: no acute distress, average body habitus, patient oriented x3, no limitations, healthy appearing, alert and well nourished Resp: COMMON NORMALS: normal respiratory effort and clear to auscultation bilaterally AUSCULTATION: clear to auscultation bilaterally Cardio: COMMON NORMALS: regular rate and regular rhythm RATE: regular rate RHYTHM: regular rhythm Neuro: ABDULAZIZ COMA SCALE: document GCS findings Gallup coma scale eye opening: Spontaneous Gall[place] coma scale verbal response: Orientated Gall[place] coma scale motor response: Obey commands Abdulaziz coma scale total score: 15 COMMON NORMALS: patient oriented x3, moves all extremities, no focal motor deficits, no sensory deficits noted and gait normal SENSORIUM/ORIENTATION: Yes alert GAIT: Yes Normal gait present Psych: COMMON NORMALS: Normal thought process present, speech normal, denies hallucinations, denies homicidal ideation and denies suicidal ideation APPEARANCE: Yes grossly normal ATTITUDE: Yes calm ACTIVITY/MOTOR BEHAVIOR: Yes appropriate eye contact SPEECH: Yes normal speech MOOD & AFFECT: Yes euthymic mood THOUGHT PROCESS: Normal thought process present THOUGHT CONTENT: Yes Normal thought content present ATTENTION/CONCENTRATION: Yes attention grossly intact and Yes concentration grossly intact MEMORY/COGNITION: Yes memory grossly intact and Yes cognition grossly intact INSIGHT: Good insight present (Psych) JUDGEMENT: Good judgement present (Psych) Course Vital Signs: Vital signs: Vital Signs Temperature 98.0 F 12/02/24 18:43 Pulse Rate 93 12/02/24 19:30 Blood Pressure 126/88 12/02/24 19:30 Pulse Oximetry 97 12/02/24 19:30 Oxygen Delivery Me thod Room Air 12/02/24 18:43 MDM - General Adult Medical Decision Making Patient's symptoms most likely due to some degree of gabapentin withdrawal as this can cause anxiety. Will give him his dose here and another dose he can take in approximately 6 to 8 hours and then we will give him medication to last him until tomorrow in case his prescription is not due to be refilled until Tuesday. He can continue to follow-up with his [facility] [place] provider if anxiety does not improve. He could also utilize crisis stabilization center. Medical Records I reviewed the patient's medical records. No radiology studies performed this visit Discharge Plan Discharge Patient Disposition: Home Clinical Impression: Medication withdrawal Qualifiers: Substance type: sedative, hypnotic or anxiolytic Qualified Code(s): F13.939 - Sedative, hypnotic or anxiolytic use, unspecified with withdrawal, unspecified Condition: Stable Prescriptions: No Action losartan 25 mg tablet 25 mg PO DAILY Qty: 30 11RF buspirone 15 mg tablet 15 mg PO BID Qty: 60 1RF doxepin 10 mg capsule 10 mg PO BEDTIME 30 Days Qty: 30 1RF gabapentin 800 mg tablet 800 mg PO TID Qty: 90 1RF propranolol 10 mg tablet 10 mg PO BID Qty: 60 1RF trazodone 50 mg tablet 50 mg PO BEDTIME PRN (Reason: Sleep) 30 Days Qty: 30 1RF pantoprazole 40 mg Tablet,Delayed Release (Dr/Ec) 40 mg PO DAILY 30 Days Qty: 30 1RF baclofen 20 mg tablet 20 mg PO .HS Qty: 30 1RF diclofenac sodium 75 mg tablet,delayed release (DR/EC) 75 mg PO Q12H PRN (Reason: pain) Qty: 20 0RF Discharge Orders: Discharge ED (Routine); Ordered 12/02/24 Ordered By: Sofy Vasques Referrals: Garrett Castillo NP [Primary Care Provider, Family Practice] Patient Instructions: Patient Portal & Kal Instructions Activity Restrictions/Additional Instructions: Please fill your prescription on Tuesday/Tuesday when it is scheduled to be picked up. We have given you your dose of gabapentin prior to discharge and will send you home with additional medications you can take tonight/tomorrow until your prescription is ready to be picked up. Print Language: Macedonian Coding Level of Care Code ED Electrical Engineer for Sukumar Betts
[2024-12-02 19:30] VITALS: BP 126/88; PULSE 93; O2SAT 97
== END 2024-12-02 19:31 | disposition home or self-care (01) ==
PROVIDERS: Emergency Provider Physician Assistant; PCP Clinical Nurse Specialist Adult Health
DX: F13.939 Sedative, hypnotic or anxiolytic use, unspecified with withdrawal, unspecified (principal); Z87.891 Personal history of nicotine dependence; I10 Essential (primary) hypertension
CPT/HCPCS: 99283; J9999

== ENCOUNTER 2024-12-07 19:06 | Inpatient (IN) | payer MEDICAID, SELFPAY ==
[2024-12-07 19:14] VITALS: BP 109/71; PULSE 87; RESP 20; TEMP 36.6; O2SAT 96; BMI 29.5
--- NOTE | 2024-12-07 19:25 | W.ED.OVERDOS ---
HPI - Overdose General: Chief Complaint: Overdose Stated Complaint: 96 HOUR HOLD Time Seen by Provider: 12/07/24 19:07 Source: patient and EMS Mode of arrival: EMS Limitations: no limitations History of Present Illness: 34-year-old male who is here with EMS with acute psychosis. Patient has history of polysubstance abuse and psychosis with multiple psych admissions in the past. Patient here is hallucinating states that he has potions that can drink himself. Concerned that he overdosed on clonazepam but he states he took his normal dose he does not appear sedated here. Related Data Previous Rx's ?Medication ?Instructions ?Recorded losartan 25 mg tablet 25 mg PO DAILY #30 tabs 05/17/24 diclofenac sodium 75 mg 75 mg PO Q12H PRN pain #20 tabs 08/28/24 tablet,delayed release baclofen 20 mg tablet 20 mg PO .HS #30 tabs 10/30/24 pantoprazole 40 mg tablet,delayed 40 mg PO DAILY 30 days #30 tabs 10/30/24 release buspirone 15 mg tablet 15 mg PO BID #60 tabs 11/22/24 doxepin 10 mg capsule 10 mg PO BEDTIME 30 days #30 caps 11/22/24 gabapentin 800 mg tablet 800 mg PO TID #90 tabs 11/22/24 propranolol 10 mg tablet 10 mg PO BID #60 tabs 11/22/24 trazodone 50 mg tablet 50 mg PO BEDTIME PRN Sleep 30 days 11/22/24 #30 tabs Allergies Allergy/AdvReac Type Severity Reaction Status Date / Time No Known Allergies Allergy Verified 12/02/24 18:48 [facility] ED PFSH: Medical History (Updated 12/07/24 @ 19:27 by Eleazar Meza MD) Insomnia Major depressive disorder, recurrent, moderate Essential hypertension Generalized anxiety disorder Nicotine use disorder Major depressive disorder in remission Quit drug use in remote past Psychiatric care Major depression Surgical History No pertinent past surgical history Family History Mother Cancer breast cancer Father Psychiatric illness Social History Smoking and tobacco/nicotine status: never used tobacco/nicotine Quit status (tobacco/nicotine): has quit using Former quit date comment: 4 year history of smoking Alcohol intake: never Substance/Drug Use: former Household members: family Housing: House Marital status: Unknown Highest education level completed: Some College, No Degree Physical Exam Const: COMMON NORMALS: patient oriented x3 HENMT: COMMON NORMALS: normocephalic and atraumatic HEAD & SCALP: normocephalic and atraumatic Eye: COMMON NORMALS: Equal, round and reactive pupils present and EOMs intact bilaterally PUPIL: Yes Equal, round and reactive pupils present Neck/C-Spine: COMMON NORMALS: full ROM and supple Chest: COMMONS NORMALS: normal inspection of the chest Resp: COMMON NORMALS: normal respiratory effort, No retractions, No use of accessory muscles and clear to auscultation bilaterally AUSCULTATION: clear to auscultation bilaterally Cardio: COMMON NORMALS: regular rate, regular rhythm and No murmurs present (Cardio) RATE: regular rate RHYTHM: regular rhythm Extremity: COMMON NORMALS: normal to inspection and full ROM Neuro: COMMON NORMALS: patient oriented x3, moves all extremities and no focal motor deficits Psych: COMMON NORMALS: mental status grossly normal and cooperative SPEECH: Yes excessive THOUGHT PROCESS: disorganized THOUGHT CONTENT: Yes Hallucination(s) present Skin: COMMON NORMALS: no rashes or lesions noted and no wounds GENERAL SKIN EXAM: no rashes or lesions noted Course Vital Signs: Vital signs: Vital Signs Temperature 98 F 12/07/24 19:14 Pulse Rate 87 12/07/24 19:14 Respiratory Rate 20 H 12/07/24 19:14 Blood Pressure 109/71 12/07/24 19:14 Pulse Oximetry 96 12/07/24 19:14 MDM - Overdose Medical Decision Making Patient presents here on a 96-hour hold for acute psychosis. Patient here is actively psychotic stating that he has pushed in the constraint people he has had a history of this in the past along with polysubstance abuse. He has no signs of overdose here blood works normal he is medically cleared I spoke to psychiatrist Dr. Diggs and will admit to the psych fernandez. Medical Records I reviewed the patient's medical records. Lab Data I reviewed the patient's lab results. 12/07/24 19:48 12/07/24 19:48 Laboratory Results WBC 6.99 10^3/uL (3.29-11.43) 12/07/24 19:48 RBC 4.74 10^6/uL (3.85-5.65) 12/07/24 19:48 Hgb 14.00 g/dL (11.27-16.99) 12/07/24 19:48 Hct 41.9 % (37-53) 12/07/24 19:48 MCV 88.4 fl (82-101) 12/07/24 19:48 MCH 29.5 pg (27-33) 12/07/24 19:48 MCHC 33.4 g/dL (30-55) 12/07/24 19:48 RDW 12.3 % (12.1-15.1) 12/07/24 19:48 Plt Count 279 10^3/cmm (157-399) 12/07/24 19:48 MPV 9.6 fL (7.4-10.4) 12/07/24 19:48 Neut % (Auto) 36.5 % 12/07/24 19:48 Lymph % (Auto) 53.1 % 12/07/24 19:48 [place] % (Auto) 6.9 % 12/07/24 19:48 Eos % (Auto) 2.4 % 12/07/24 19:48 Baso % (Auto) 1.0 % 12/07/24 19:48 Neut # (Auto) 2.55 10^3/uL (1.8-7.7) 12/07/24 19:48 Lymph # (Auto) 3.7 10^3/uL (0.8-4.8) 12/07/24 19:48 [place] # (Auto) 0.5 10^3/uL (0.2-0.9) 12/07/24 19:48 Eos # (Auto) 0.2 10^3/uL (0.0-0.8) 12/07/24 19:48 Baso # (Auto) 0.1 10^3/uL (0.0-0.1) 12/07/24 19:48 Nucleated RBC % (auto) 0 % 12/07/24 19:48 Nucleated RBCs # 0.0 /100WBC 12/07/24 19:48 No radiology studies performed this visit Discharge Plan Discharge Patient Disposition: Admitted As Inpatient Clinical Impression: Acute psychosis Condition: Stable Coding Level of Care Code ED Furnace Tender for Sukumar Betts
[2024-12-07] MEDS: haloperidol inj 5 mg/mL INJ 1 mL IVP (19:48)
[2024-12-07 19:58] LABS: Hematocrit 41.9 % (37-53); Hemoglobin 14.00 g/dL (11.27-16.99); Mean Corpuscular HGB Conc 33.4 g/dL (30-55); Mean Corpuscular Hemoglobin 29.5 pg (27-33); Mean Corpuscular Volume 88.4 fl (82-101); Nucleated Red Blood Cells % 0 %; Platelet Count 279 10^3/cmm (157-399); Red Blood Count 4.74 10^6/uL (3.85-5.65); White Blood Count 6.99 10^3/uL (3.29-11.43)
--- NOTE | 2024-12-07 20:04 | PC.NURSE ---
96 Hour Involuntary Hold Patient Rights have been reviewed with the patient and a copy of the same has been given to him. Bite Block Maker Sixto Crockett was present at bedside during presentation of Rights.
[2024-12-07 20:13] VITALS: BP 102/90; PULSE 84; O2SAT 94
[2024-12-07 20:15] VITALS: BP 111/71; O2SAT 96
[2024-12-07 20:18] LABS: Alanine Aminotransferase 13 U/L (0-41); Albumin Level 4.3 g/dL (3.5-5.2); Alkaline Phosphatase 71 U/L (40-130); Aspartate Amino Transferase 14 U/L (0-40); Blood Urea Nitrogen 7 mg/dL (6-20); Calcium 8.9 mg/dL (8.5-10.5); Carbon Dioxide 26 mmol/L (22-29); Chloride 99 mmol/L (98-107); Creatinine Clr Calc Pharmacy 115.8745; Globulin 2.5 g/dL (1.3-4.6); Glucose 84 mg/dL (65-115); Osmolality Calculated 283 mOsm/kg (285-295); Sodium 138 mmol/L (136-145); Total Protein 6.8 g/dL (6.6-8.7)
[2024-12-07 20:19] LABS: Acetaminophen < 5.0 ug/mL (10-30); Alcohol Level < 10 mg/dL (0-10); Anion Gap 16.5 (5-19); Potassium 3.5 mmol/L (3.5-5.1); Salicylate < 0.3 mg/dL (3-10)
--- NOTE | 2024-12-07 20:31 | PC.NURSE ---
Report given to Diana CACERES
[2024-12-07 21:54] VITALS: BP 111/71; PULSE 85; O2SAT 96
[2024-12-07 22:00] VITALS: BP 103/74; PULSE 89; RESP 18; O2SAT 98
[2024-12-08 06:00] VITALS: RESP 12
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
--- NOTE | 2024-12-08 06:35 | PC.NURSE ---
vitals not done per nurse, resp 12
--- NOTE | 2024-12-08 08:50 | PC.NURSE ---
Pt. came up to signee this am asking how he got in here. Pt. states he does not remember anything that happened or why he is in here. Pt. given urine cup for UA sample.
--- NOTE | 2024-12-08 09:28 | PC.NURSE ---
Pt. has come up to the nurses station twice thus far asking about his Klonopin. Pt. stated it was far enough into the month that he could not have possibly had enough medication left to OD on it. Pt. wanting to know if when his toxicology gets in if it shows he did not OD on Klonopin would he be able to take his Klonopin.
--- NOTE | 2024-12-08 09:47 | PC.NURSE ---
Pt. came back up to the nurses station again saying he could not have OD on his Klonopin because it was too far into the month, then saying he went to the vape store and bought something to help him with pain called...pseudo indoxyl
[2024-12-08 10:23] LABS: PCP Screen Urine Negative (Negative)
[2024-12-08 14:00] VITALS: BP 88/54; PULSE 87; RESP 17; TEMP 36.6; O2SAT 98
--- NOTE | 2024-12-08 15:12 | PC.NURSE ---
Dr. Diggs gave verbal order to restart Clonazepam 0.5mg PO BID PRN.
--- NOTE | 2024-12-08 15:35 | PC.NURSE ---
Pt. requested his suboxone be restarted. Signee let Dr. Diggs know pt. was requesting it be restarted. Dr. Diggs said he would think about it and get back with signee.
[2024-12-08 21:32] VITALS: BP 112/77; PULSE 93; RESP 18; TEMP 37.1; O2SAT 98
[2024-12-08 21:38] VITALS: BMI 31.6
--- NOTE | 2024-12-08 23:42 | PC.NURSE ---
2200: Intrusive, somatic, frequently summoning nsg to ask for Suboxone, I'm going through withdrawals pretty bad and need my suboxone, it's the only thing that will help , physician has already been advised of request during day et NOC shifts, pt noted to attempt to manipulate nsg into asking again stating I forgot to have you ask the doctor for Suboxone for me, no one has asked him, can you go ask right now.. as soon as nsg shifts changed. Pt is currently presenting @ nursing station with exaggerated sx of I'm having tardive dyskinesia that seem to resolve when he isn't @ nurse's station. Has had multiple PRNs including cogentin et clonidine appx an hour ago per APR, et PRNs requested by pt. in excess throughout day/NOC including anti-anxiety meds, without resolution to behaviors. VS WNL, presentation WNL, no sweating, tremors or noticeable actual symptoms observed. Pt. continues to summon nsg again for Suboxone et PRNs. 2340: Behaviors continue.
--- NOTE | 2024-12-09 02:27 | PC.NURSE ---
Intrusive, requesting unattainable things et being disruptive to unit. Currently back in shower again.
[2024-12-09 06:00] VITALS: BP 115/73; PULSE 71; RESP 18; TEMP 37; O2SAT 100
[2024-12-09] MEDS: CITALOPRAM 40 MG TABLET PO (10:45)
--- NOTE | 2024-12-09 12:41 | P.NPUPN_ITS ---
Subjective NPU 2 Subjective: 34-year-old male with opiate dependence and a history of psychosis. Patient had admitted that he had recent pain and had to use the 7 hydroxy to help as the Suboxone had not been effective at its current dose. He reports that he is going to have his teeth extracted later this week and stated that he was hopeful about remaining sober off of opiates while using these medications. He had denied any hallucinations at this time. He had denied any paranoia. He had reported some anxiety and depression but denied any suicidal thoughts. He had reported some improvement in sleep with the doxepin. Mental Status Exam 2 MSE Comments: This is an overweight versus obese white male in hospital scrubs with limited grooming but appropriate eye contact. No abnormal involuntary motor movements except for mild psychomotor retardation. He was cooperative with exam in mild distress. He was alert and oriented to person, place, time, and situation. His speech was normal in regards to rate, rhythm, and prosody. His mood was described as better. His affect was restricted in range. His thought process was linear, logical, and goal-directed. His thought content showed no evidence of homicidal or suicidal ideation. There was no evidence of delusional thinking. He did not appear to be responding to internal stimuli. His attention span appeared improved. His recent and remote memory appeared grossly intact. His insight is limited. His judgment appeared poor. His impulse control appeared better but still limited. Vitals/I&O/Wt Last Vital Signs Temp 98.6 F 12/09/24 06:00 Pulse 71 12/09/24 06:00 Resp 18 12/09/24 06:00 BP 115/73 12/09/24 06:00 Pulse Ox 100 12/09/24 06:00 O2 Del Method Room Air 12/09/24 06:00 Weight last 48 hrs Weight 97.239 kg Weight 90.718 kg Data NPU 12/07/24 19:48 12/07/24 19:48 A&P Assessment and plan 1. Generalized anxiety disorder: 2. Major depression: 3. Medication withdrawal: 4. Polysubstance abuse: 5. Substance-induced psychotic disorder: 6. Acute psychosis: Plan: 34-year-old male admitted to the neuropsychiatric unit for the third time this year fourth time since 2022 once again with an ingestion of pulm substance opiates only although given his history this may be perhaps under endorsed. 1. 7 hydroxy is a is a partial mu agonist and likely can be associated with psychosis. He has been using opiates in some form for several months and may be a good candidate for the use of Suboxone to target this active problem. Will hold on suboxone as patient will need to have suboxone restarted after the completion of dental tooth extraction later on an outpatient basis. 2. Continue current medications. 3. Continue to encourage individual milieu and group therapy 4. the highest level care to which the patient is willing to commit. 5. Patient to remain on 96 hour hold. 6. Patient likely in need of acute inpatient substance abuse treatment in 28 day program. Patient continues to digress and have reasons/excuses for why a sober living program is not in his best interest. PDMP PDMP Reviewed: Not Reviewed Involuntary Hold Information 2 Hold Status: Legal Status: 96 Hour Hold Date/Time Hold Expires: 1 @1945 96 Hour Hold: 96 Hour Involuntary Admission: No Attestations NPU 2 Medical Necessity Statement*: Inpatient psychiatric hospitalization is medically necessary and the clinically appropriate intervention at this time. We will monitor/initiate medications and make changes as indicated. Patient will be in the hospital for over two midnights. The patient's likely length of stay is 2-3 days. Coding Level of Care Code Acute Code for [facility] Diagnoses Generalized anxiety disorder F41.1 Episode of recurrent major depressive disorder, unspecified depression episode severity F33.9 Active/Remission status: currently active Major depression episode severity: unspecified Major depression recurrence: recurrent Medication withdrawal F19.939 Polysubstance abuse F19.10 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
[2024-12-09 14:00] VITALS: BP 132/88; PULSE 69; RESP 16; TEMP 37.3; O2SAT 99
[2024-12-09 22:00] VITALS: BP 128/82; PULSE 80; RESP 17; TEMP 37.3; O2SAT 99
[2024-12-10 06:00] VITALS: BP 150/91; PULSE 60; RESP 18; TEMP 37.1; O2SAT 99
[2024-12-10] MEDS: CITALOPRAM 40 MG TABLET PO (08:09)
--- NOTE | 2024-12-10 11:22 | PC.NURSE ---
Dr. Sandoval gave verbal order to restart Clindamycin 300mg PO Q6 hrs x 4 days. For tooth extraction on .
[2024-12-10 14:00] VITALS: BP 110/72; PULSE 88; RESP 16; TEMP 37; O2SAT 98
--- NOTE | 2024-12-10 14:47 | W.PM.NPUPNS ---
Subjective NPU Subjective: 34-year-old male with opiate dependence and a history of psychosis. Patient had admitted that he had recent pain and had used mitragynine pseudoindoxyl to help manage pain. The patient had reported that he was feeling better. He had denied any hallucinations at this time. He had allegedly refused to allow his father to speak with him while he was here in the hospital. He had stated that he would likely be going home when discharged. He had continued to report that his pain was better at this time. He did not wish to consider inpatient substance abuse treatment at this time. Mental Status Exam MSE Comments: This is an overweight versus obese white male in hospital scrubs with continued disheveled appearance and normal eye contact. No abnormal involuntary motor movements except for mild psychomotor retardation. He was cooperative with exam in mild distress. He was alert and oriented to person, place, time, and situation. His speech was normal in regards to rate, rhythm, and prosody. His mood was described as better. His affect was restricted in range. His thought process was linear, logical, and goal-directed. His thought content showed no evidence of homicidal or suicidal ideation. There was no evidence of delusional thinking. He did not appear to be responding to internal stimuli. His attention span appeared improved. His recent and remote memory appeared grossly intact. His insight is limited. His judgment appeared poor. His impulse control appeared better but still limited. Vitals/I&O/Wt Last Vital Signs Temp 98.6 F 12/10/24 14:00 Pulse 88 12/10/24 14:00 Resp 16 12/10/24 14:00 BP 110/72 12/10/24 14:00 Pulse Ox 98 12/10/24 14:00 O2 Del Method Room Air 12/10/24 14:00 Weight last 48 hrs Weight 97.239 kg Data NPU 12/07/24 19:48 12/07/24 19:48 A&P Assessment and plan 1. Generalized anxiety disorder: 2. Major depression: 3. Medication withdrawal: 4. Polysubstance abuse: 5. Substance-induced psychotic disorder: 6. Acute psychosis: Plan: 34-year-old male admitted to the neuropsychiatric unit for the third time this year fourth time since 2022 once again with an ingestion of pulm substance opiates only although given his history this may be perhaps under endorsed. 1. 7 hydroxy is a is a partial mu agonist and likely can be associated with psychosis. He has been using opiates in some form for several months and may be a good candidate for the use of Suboxone to target this active problem. Will hold on suboxone as patient will need to have suboxone restarted after the completion of dental tooth extraction later on an outpatient basis. Clindamycin restarted today. 2. Continue current medications. 3. Continue to encourage individual milieu and group therapy 4. the highest level care to which the patient is willing to commit. 5. Patient to remain on 96 hour hold. 6. Patient likely in need of acute inpatient substance abuse treatment in 28 day program. Patient continues to digress and have reasons/excuses for why a sober living program is not in his best interest. PDMP PDMP Reviewed: Not Reviewed Involuntary Hold Information Hold Status: Legal Status: 96 Hour Hold Date/Time Hold Expires: 12/13/24@1945 96 Hour Hold: 96 Hour Involuntary Admission: No Attestations NPU Medical Necessity Statement*: Inpatient psychiatric hospitalization is medically necessary and the clinically appropriate intervention at this time. We will monitor/initiate medications and make changes as indicated. The patient's likely length of stay is 2-3 days. Coding Level of Care Code Acute Code for [facility] Diagnoses Generalized anxiety disorder F41.1 Episode of recurrent major depressive disorder, unspecified depression episode severity F33.9 Active/Remission status: currently active Major depression episode severity: unspecified Major depression recurrence: recurrent Medication withdrawal F19.939 Polysubstance abuse F19.10 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
[2024-12-10 20:56] VITALS: BP 127/92; PULSE 92; RESP 18; TEMP 37; O2SAT 100
[2024-12-11 05:59] VITALS: BP 127/91; PULSE 105; RESP 18; TEMP 36.7; O2SAT 99
[2024-12-11] MEDS: CITALOPRAM 40 MG TABLET PO (08:09)
[2024-12-11 13:33] VITALS: BP 132/97; PULSE 80; RESP 16; TEMP 36.9; O2SAT 100
--- NOTE | 2024-12-11 16:52 | W.PM.NPUPNS ---
Subjective NPU Subjective: 34-year-old male with opiate dependence and a history of psychosis. The patient had admitted to the use of kratom. He had stated that he was feeling better. He had admitted that he had not been open about revealing that he had relapsed back on kratom to his father. He had again reported that pain issues with his mouth were contributing to his need to use the kratom. Patient was given information regarding methadone as a potential alternative to Suboxone for treating opiate dependence. Patient had continued to isolate on the milieu. He had reported no side effects from his medication regimen. Mental Status Exam MSE Comments: This is an overweight versus obese white male in hospital scrubs with continued disheveled appearance and normal eye contact. No abnormal involuntary motor movements except for mild psychomotor retardation. He was cooperative with exam in mild distress. He was alert and oriented to person, place, time, and situation. His speech was normal in regards to rate, rhythm, and prosody. His mood was described as okay His affect was restricted in range. His thought process was linear, logical, and goal-directed. His thought content showed no evidence of homicidal or suicidal ideation. There was no evidence of delusional thinking. He did not appear to be responding to internal stimuli. His attention span appeared improved. His recent and remote memory appeared grossly intact. His insight is impaired and impoverished. His judgment appeared poor. His impulse control appeared better but still limited. Vitals/I&O/Wt Last Vital Signs Temp 98.4 F 12/11/24 13:33 Pulse 80 12/11/24 13:33 Resp 16 12/11/24 13:33 BP 132/97 12/11/24 13:33 Pulse Ox 100 12/11/24 13:33 O2 Del Method Room Air 12/11/24 13:33 Data NPU 12/07/24 19:48 12/07/24 19:48 A&P Assessment and plan 1. Generalized anxiety disorder: 2. Major depression: 3. Medication withdrawal: 4. Polysubstance abuse: 5. Substance-induced psychotic disorder: 6. Acute psychosis: Plan: 34-year-old male admitted to the neuropsychiatric unit for the third time this year fourth time since 2022 with limited insight regarding his issues with substance abuse particularly opioid dependence. 1. Will discontinue Buspar as there is substantial risk of Serotonin syndrome with kratom plus SSRI with this patient having doxepin, buspar, and celexa together. 2. Continue Celexa and doxepin as prescribed. This patient is a likely candidate for methadone treatment for Opioid dependence. 3. Continue to encourage individual milieu and group therapy 4. the highest level care to which the patient is willing to commit. 5. Patient to remain on 96 hour hold. 6. Patient likely in need of acute inpatient substance abuse treatment in 28 day program. Patient continues to digress and have reasons/excuses for why a sober living program is not in his best interest. PDMP PDMP Reviewed: Not Reviewed Involuntary Hold Information Hold Status: Legal Status: 96 Hour Hold Date/Time Hold Expires: 12/13/24 @ 19:45 96 Hour Hold: 96 Hour Involuntary Admission: No Attestations NPU Medical Necessity Statement*: Inpatient psychiatric hospitalization is medically necessary and the clinically appropriate intervention at this time. We will monitor/initiate medications and make changes as indicated. The patient's likely length of stay is 2-3 days. Coding Level of Care Code Acute Code for [facility] Diagnoses Generalized anxiety disorder F41.1 Episode of recurrent major depressive disorder, unspecified depression episode severity F33.9 Active/Remission status: currently active Major depression episode severity: unspecified Major depression recurrence: recurrent Medication withdrawal F19.939 Polysubstance abuse F19.10 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
[2024-12-11 19:21] VITALS: BP 132/92; PULSE 112; RESP 18; TEMP 37.2; O2SAT 97
--- NOTE | 2024-12-12 00:34 | PC.NURSE ---
AT 1930, PATIENT REQUESTED ZYPREXA BY NAME FOR ANXIETY. ZYPREXA ZYDIS 5MG SL GIVEN ALONG WITH NICOTINE LOZENGE AT 183. PATIENT REQUESTED ADDITIONAL ANXIETY MEDS BE GIVEN WITH HIS BEDTIME MEDS. VISTARIL 50MG FOR ANXIETY, MOTRIN 600MG FOR TOOTH PAIN, TRAZODONE 50MG FOR SLEEP GIVEN AT 1952. AT 2043, PATIENT RECEIVED A NICORETTE LOZENGE GIVEN. AT 2319, PATIENT REQUESTED MED FOR LOOSE STOOLS, IMODIUM GIVEN. AT 4, PATIENT REQUESTED ADDITIONAL SLEEP AND ANXIETY MEDS. A SECOND TRAZODONE 50MG FOR SLEEP, ZYPREXA ZYDIS 5MG SL, AND KLONOPIN 0.5MG GIVEN PER PATIENT REQUEST. AT THIS TIME OF 4, PATIENT CONTINUES TO BE SITTING ON HIS BED QUIETLY.
--- NOTE | 2024-12-12 02:26 | PC.NURSE ---
PATIENT CONTINUES TO BE INTRUSIVE. NOW UP TO DESK STATING: YOU KNOW WHAT MIGHT HELP ME TO GO TO SLEEP....IF I HAD SOMETHING TO EAT. DO YOU HAVE A SANDWICH I COULD HAVE? 1 HAM SANDWICH GIVEN, WITH ADVICE FOR PATIENT TO GO LAY DOWN AND GET SOME AFTER HE EATS IT. PATIENT STATED HE WOULD TRY.
[2024-12-12 02:34] VITALS: BP 131/96; PULSE 71; RESP 18; O2SAT 100
[2024-12-12] MEDS: CITALOPRAM 40 MG TABLET PO (07:59)
--- NOTE | 2024-12-12 11:15 | PC.NURSE ---
Pt is alert and making sense while talking up at the nurses station. Pt has made a 180 turn around since admission.
--- NOTE | 2024-12-12 12:48 | P.NPUDS_ITS ---
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 [Other] - 12/13/24 1:00 pm Radha Chua MD [Physician, Neurology] - 12/17/24 10:00 am Alva Mirza PMHNP [Staff Physician, Psychiatry] - 12/13/24 3:30 pm Garrett Castillo NP [Primary Care Provider, [facility]] Discharge Diet: Usual diet Discharge Activity: Resume usual activity Patient Instructions: Opioid Safety, Patient Portal & Kal Instructions Discharge Attestations NPU Time Spent in Discharge Care*: less than 30 min Specific Discharge Activities: Specific discharge activities: educating patient, discussing with caseworker/social workers/dc planners and documenting/other paperwork Coding Level of Care Code Acute Code for Chg Fwd Diagnoses Generalized anxiety disorder F41.1 Episode of recurrent major depressive disorder, unspecified depression episode severity F33.9 Active/Remission status: currently active Major depression episode severity: unspecified Major depression recurrence: recurrent Medication withdrawal F13.939 Substance type: sedative, hypnotic or anxiolytic Polysubstance abuse F19.10 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
[2024-12-12 13:19] VITALS: BP 131/96; PULSE 71; RESP 18; TEMP 36.9; O2SAT 100
[2024-12-12 14:00] VITALS: BP 61/40; PULSE 87; RESP 16; TEMP 37.2; O2SAT 100
== END 2024-12-12 15:30 | disposition home or self-care (01) | DRG 885 ==
LOC: ER 21:28 → NP 21:44
PROVIDERS: Admitting Provider Psychiatry & Neurology Psychiatry; Emergency Provider Emergency Medicine; PCP Clinical Nurse Specialist Adult Health; Visit Provider Psychiatry & Neurology Psychiatry
DX: F23 Brief psychotic disorder (principal); F33.1 Major depressive disorder, recurrent, moderate; E66.9 Obesity, unspecified; Z68.31 Body mass index [BMI] 31.0-31.9, adult; F41.1 Generalized anxiety disorder; G47.00 Insomnia, unspecified; I10 Essential (primary) hypertension
CPT/HCPCS: 36415; 80053; 80306; 80307; 85025; 96374; 97150; 97165; 99285; J1630; J9999

== ENCOUNTER → 2024-12-17 12:03 | Outpatient (BNVA) | payer MEDICAID, SELFPAY | PROVIDERS: PCP Clinical Nurse Specialist Adult Health; Referring Provider Clinical Nurse Specialist Adult Health; Visit Provider Specialist | DX: M79.10 Myalgia, unspecified site (principal); G62.9 Polyneuropathy, unspecified | CPT/HCPCS: 36415; 82607; 82746; 83921; 84443; 85651; 86140; 86334; 86431 ==

== ENCOUNTER 2024-12-23 11:41 | Emergency (ER) | payer MEDICAID, SELFPAY ==
--- OUTSIDE RECORDS SUMMARY | 2015-05-27 14:24 | XMS_ITS | Continuity of Care Document ---
Author Organization [id number] Address [address] [place] [address] Phone Care Team Providers Care Circular Saw Operator Name Role Phone Mick Lange MD Unavailable Unavailable Allergies, Adverse Reactions, Alerts Substance Reaction Status Criticality No Known Allergies Active No Inform ation Medications Medication Instructions Dosage Effective Dates (start - stop) Status Comments risperidone 2 mg tablet take 1 tablet by oral route every day 2 MG - Active Lamictal 100 mg tablet take 1 tablet by oral route 2 times every day 100 MG - Active Procedures Procedure Date OFFICE/OUTPT EM EST PROB FOCUS/STRFWD 10 MINS OFFICE/OUTPT EM EST PROB FOCUS/STRFWD 10 MINS OFFICE/OUTPT EM EST PROB FOCUS/STRFWD 10 MINS Advance Directives Directive Yes / No Effective Date File Name No Information Encounters Encounter Description Practice Location Reason(s) For Visit Diagnoses Date Provider Providers Copied on Encounter [address], [address] [place] [address], [id number], [place] tel:[phone] [facility] No Information 6 Anisa Barton. [address] [place] [address], [id number], [place]. tel:[phone] OFFICE/OUTPT EM EST PROB FOCUS/STRFWD [address], [address] [place] [address], [id number], tel:[phone] [facility] return to work note (chief complaint) Bipolar disorder, current episode mixed, severe, with psychotic features Anisa Barton. [address] [place] [address], [id number], . tel:[phone] OFFICE/OUTPT EM EST PROB FOCUS/STRFWD [address], [address] [place] [address], [id number], tel:[phone] [facility] recheck-stil l dilusional (chief complaint) Bipolar disord, crnt episode mixed, severe, w psych features 6 nAisa Barton. [address] [place] [address], [id number], [place]. tel:[phone] OFFICE/OUTPT EM EST PROB FOCUS/STRFWD [address], [address] [place] [address], [id number], tel:[phone] [facility] needs help (chief complaint) Bipolar disorder, current episode mixed, severe, with psychotic features Anisa Barton. [address] [place] [address], [id number], . tel:[phone] Family History Family Member Type Diagnosis Age At Onset No Information Payers Payer name Insurance type Covered democrat ID Authordashaa shawn(s) SELF PAY PROMPT PAY 09 Social History Type Description Quantity Date Captured Comments Sex Male Smoking Status No Information Chief Complaint And Reason For Visit No Information Reason For Referral Reason For Referral No Information History Of Present Illness Encounter Date Complaint History Of Prese nt Illness return to work note On lamictal 100 bid. Never started abilify as he was stable. off sedatives. recheck-still dilusional Titrate d up on lamictal . seemed to be improving, but then multiple stress situations seemed to crank up delusions. needs help Had a brief psyc hotic episode beginning spring. Didn't grieve mother's loss the previous September. Artemio started on Lexapro - made it worse - felt suicidal. Moved with dad to [place]. Stayed 4 months. Went to ER due to SI. Took ativan with good results. Fam Hx of depression, anxiety Functional Status Date Functional Assessmen t No Information Instructions Date Instruction Additional Infor mation No Information Assessments Type Assessment Date No Information Patient Care Teams Name Effective Dates (start - stop) Status Members No Information
[2024-12-23 11:49] VITALS: BP 122/82; PULSE 97; RESP 18; TEMP 36.8; O2SAT 100; BMI 30.8
--- NOTE | 2024-12-23 12:21 | W.ED.GENADLT ---
HPI - General Adult General: Chief complaint: General Medical Stated complaint: Medication withdraw Time Seen by Provider: 12/23/24 12:17 Source: patient Mode of arrival: ambulatory Limitations: no limitations History of Present Illness: 34-year-old male states that he has missed multiple appointments [facility] and is ran out of his gabapentin, baclofen and Klonopin. He states is not going to be able to get into them until next week. He has no withdrawal symptoms denies any vomiting he has no other complaints at this time. Related Data Home Medications ?Medication ?Instructions ?Recorded ?Confirmed clonazepam 0.5 mg tablet (Klonopin) 0.25 mg PO BID 12/17/24 12/17/24 Previous Rx's ?Medication ?Instructions ?Recorded doxepin 10 mg capsule 10 mg PO BEDTIME 30 days #30 caps 11/22/24 propranolol 10 mg tablet 10 mg PO BID #60 tabs 11/22/24 citalopram 40 mg tablet 40 mg PO DAILY 30 days #30 tabs 12/12/24 hydroxyzine pamoate 25 mg capsule 50 mg (2 x 25 mg) PO Q6H PRN 12/12/24 Anxiety 30 days #120 caps olanzapine 5 mg tablet 5 mg PO QPM #30 tabs 12/12/24 olanzapine 5 mg tablet (Zyprexa) 5 mg PO QPM #30 tabs 12/12/24 propranolol 20 mg tablet 10 mg (1/2 x 20 mg) PO BID 30 days 12/12/24 #30 tabs trazodone 50 mg tablet 50 mg PO BEDTIME PRN Sleep 30 days 12/12/24 #30 tabs folic acid 1 mg tablet 1 mg PO DAILY #30 tabs 12/18/24 baclofen 20 mg tablet 20 mg PO .HS #30 tabs 12/23/24 gabapentin 800 mg tablet 800 mg PO TID #90 tabs 12/23/24 Allergies Allergy/AdvReac Type Severity Reaction Status Date / Time No Known Allergies Allergy Verified 12/23/24 11:53 [facility] ED PFSH: Medical History (Updated 12/23/24 @ 12:21 by Eleazar Meza MD) Insomnia Major depressive disorder, recurrent, moderate Essential hypertension Generalized anxiety disorder Nicotine use disorder Major depressive disorder in remission Quit drug use in remote past Psychiatric care Major depression Surgical History No pertinent past surgical history Family History Mother Cancer breast cancer Father Psychiatric illness Social History Smoking and tobacco/nicotine status: current every day tobacco/nicotine user (vape) Quit status (tobacco/nicotine): has quit using Former quit date comment: 4 year history of smoking Alcohol intake: never Substance/Drug Use: former Household members: family Housing: House Marital status: Unknown Highest education level completed: Some College, No Degree Physical Exam Const: COMMON NORMALS: no acute distress, patient oriented x3 and healthy appearing HENMT: COMMON NORMALS: normocephalic and atraumatic HEAD & SCALP: normocephalic and atraumatic Neck/C-Spine: COMMON NORMALS: full ROM and supple Chest: COMMONS NORMALS: normal inspection of the chest Resp: COMMON NORMALS: normal respiratory effort Cardio: COMMON NORMALS: regular rate and regular rhythm RATE: regular rate RHYTHM: regular rhythm Extremity: COMMON NORMALS: normal to inspection and full ROM Neuro: COMMON NORMALS: patient oriented x3, moves all extremities and no focal motor deficits Psych: COMMON NORMALS: mental status grossly normal, Normal thought process present and cooperative THOUGHT PROCESS: Normal thought process present Skin: COMMON NORMALS: no rashes or lesions noted and no wounds GENERAL SKIN EXAM: no rashes or lesions noted Course Vital Signs: Vital signs: Vital Signs Temperature 98.2 F 12/23/24 11:49 Pulse Rate 97 12/23/24 11:49 Respiratory Rate 18 12/23/24 11:49 Blood Pressure 122/82 12/23/24 11:49 Pulse Oximetry 100 12/23/24 11:49 MDM - General Adult Medical Decision Making Patient presents here requesting medication refills he has no withdrawal symptoms vitals here are normal. Will refill his gabapentin baclofen informed him we cannot refill his Klonopin and he has to follow-up with his physician for that he understands agrees to plan No radiology studies performed this visit Discharge Plan Discharge Patient Disposition: Home Clinical Impression: Medication refill Condition: Stable Prescriptions: Continued baclofen 20 mg tablet 20 mg PO .HS Qty: 30 1RF gabapentin 800 mg tablet 800 mg PO TID Qty: 90 1RF No Action clonazepam [Klonopin] 0.5 mg tablet 0.25 mg PO BID doxepin 10 mg capsule 10 mg PO BEDTIME 30 Days Qty: 30 1RF propranolol 10 mg tablet 10 mg PO BID Qty: 60 1RF folic acid 1 mg tablet 1 mg PO DAILY Qty: 30 3RF olanzapine [Zyprexa] 5 mg tablet 5 mg PO QPM Qty: 30 1RF citalopram 40 mg Tablet 40 mg PO DAILY 30 Days Qty: 30 1RF hydroxyzine pamoate 25 mg Capsule 50 mg PO Q6H PRN (Reason: Anxiety) 30 Days Qty: 120 1RF propranolol 20 mg Tablet 10 mg PO BID 30 Days Qty: 30 1RF trazodone 50 mg Tablet 50 mg PO BEDTIME PRN (Reason: Sleep) 30 Days Qty: 30 1RF olanzapine 5 mg tablet 5 mg PO QPM Qty: 30 1RF Discharge Orders: Discharge ED (Routine); Ordered 12/23/24 Ordered By: Eleazar Meza Referrals: Garrett Castillo, MR TEACHER [Primary Care Provider, Family Practice] - 4-7 days Discharge Diet: Advance as tolerated Discharge Activity: Resume usual activity Patient Instructions: Medicine Refill (ED) Print Language: Panamanian Coding Level of Care Code ED Handkerchief Maker for Sukumar Betts
== END 2024-12-23 12:27 | disposition home or self-care (01) ==
PROVIDERS: Emergency Provider Emergency Medicine; PCP Clinical Nurse Specialist Adult Health
DX: Z76.0 Encounter for issue of repeat prescription (principal); F17.290 Nicotine dependence, other tobacco product, uncomplicated
CPT/HCPCS: 99283; J9999

== ENCOUNTER 2024-12-27 13:57 | Inpatient (IN) | payer MEDICAID, SELFPAY ==
[2024-12-27] VITALS (24 sets, daily range): BP systolic 132–162; BP diastolic 80–119; PULSE 79–121; RESP 16–25; TEMP 36.3; O2SAT 94–100
[2024-12-27] MEDS: ketamine 100 mg/mL Inj 5 mL IVP (14:19)
[2024-12-27] MEDS: ondansetron 2 mg/ML SDV 2 mL 8 MG IVP (14:23)
--- NOTE | 2024-12-27 14:24 | W.ED.OVERDOS ---
HPI - Overdose General: Chief Complaint: Overdose Stated Complaint: disoriented - autistic Time Seen by Provider: 12/27/24 13:58 History of Present Illness: 34-year-old male with a history of mild autism, anxiety, depression, polysubstance abuse, and substance-induced psychotic disorders who presents to the emergency room with worsening psychosis. Apparently he has been taking multiple designer and patternmaker drugs. Possibly K2. He had become more agitated and then had stopped talking. Has been placed on a 96-hour hold by police. Affidavit states that he has been out of his mind pacing [id number] naked for hours and incoherent. Mom put his close back on. He is been taking designer and patternmaker drugs. Related Data Home Medications ?Medication ?Instructions ?Recorded ?Confirmed clonazepam 0.5 mg tablet (Klonopin) 0.25 mg PO BID 12/17/24 12/17/24 Previous Rx's ?Medication ?Instructions ?Recorded doxepin 10 mg capsule 10 mg PO BEDTIME 30 days #30 caps 11/22/24 propranolol 10 mg tablet 10 mg PO BID #60 tabs 11/22/24 citalopram 40 mg tablet 40 mg PO DAILY 30 days #30 tabs 12/12/24 hydroxyzine pamoate 25 mg capsule 50 mg (2 x 25 mg) PO Q6H PRN 12/12/24 Anxiety 30 days #120 caps olanzapine 5 mg tablet 5 mg PO QPM #30 tabs 12/12/24 olanzapine 5 mg tablet (Zyprexa) 5 mg PO QPM #30 tabs 12/12/24 propranolol 20 mg tablet 10 mg (1/2 x 20 mg) PO BID 30 days 12/12/24 #30 tabs trazodone 50 mg tablet 50 mg PO BEDTIME PRN Sleep 30 days 12/12/24 #30 tabs folic acid 1 mg tablet 1 mg PO DAILY #30 tabs 12/18/24 baclofen 20 mg tablet 20 mg PO .HS #30 tabs 12/23/24 gabapentin 800 mg tablet 800 mg PO TID #90 tabs 12/23/24 Allergies Allergy/AdvReac Type Severity Reaction Status Date / Time No Known Allergies Allergy Verified 12/23/24 11:53 Review of Systems General: Reports: ROS unobtainable due to mental status Narrative: Constitutional symptoms: Negative except as documented in HPI. Skin symptoms: Negative except as documented in HPI. Eye symptoms: Negative except as documented in HPI. ENMT symptoms: Negative except as documented in HPI. Respiratory symptoms: Negative except as documented in HPI. Cardiovascular symptoms: Negative except as documented in HPI. Gastrointestinal symptoms: Negative except as documented in HPI. Genitourinary symptoms: Negative except as documented in HPI. Musculoskeletal symptoms: Negative except as documented in HPI. Neurologic symptoms: Negative except as documented in HPI. Psychiatric symptoms: Negative except as documented in HPI. Endocrine symptoms: Negative except as documented in HPI. PFSH ED PFSH: Medical History (Updated 12/27/24 @ 19:41 by Brie Jenkins MD) Insomnia Major depressive disorder, recurrent, moderate Essential hypertension Generalized anxiety disorder Nicotine use disorder Major depressive disorder in remission Quit drug use in remote past Psychiatric care Major depression Surgical History No pertinent past surgical history Family History Mother Cancer breast cancer Father Psychiatric illness Social History Smoking and tobacco/nicotine status: current every day tobacco/nicotine user (vape) Quit status (tobacco/nicotine): has quit using Former quit date comment: 4 year history of smoking Alcohol intake: never Substance/Drug Use: former Household members: family Housing: House Marital status: Unknown Highest education level completed: Some College, No Degree Physical Exam Narrative: EXAM NARRATIVE: General: r patient is initially agitated but will not speak. Skin: Warm, dry Head: Normocephalic, atraumatic. Neck: Supple, trachea midline. Eye: Extraocular movements are intact. Ears, nose, mouth and throat: Dry oral mucosa. Cardiovascular: Regular rate and rhythm, Normal peripheral perfusion. Respiratory: Lungs are clear to auscultation, respirations are non-labored, breath sounds are equal, Symmetrical chest wall expansion. Gastrointestinal: Soft, Non distended Musculoskeletal: no deformity. Neurological: Not Alert and oriented, No obvious focal neurological deficit observed. Psychiatric: unable to assess. 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 I reviewed the patient's medical record. Patient has had multiple recent admissions for similar type presentation. I reviewed the patient's current home meds Alternate historians: History from affidavits and from EMS. Also from family. Patient unable to give any history. Differential diagnosis for patient with reported psychosis with plan for psychiatric admission including but not limited to and based on the above HPI, review of systems and physical exam: concerns for infection, alcohol intoxication, cardiac issues or other medical problems prior to psychiatric admission. Orders placed to evaluate differential diagnosis based on the above differential, HPI and physical exam labwork, ekg ordered to evaluate the pathologies and to clear the patient medically prior to psychiatric admission Lab Review: Laboratory results were reviewed and interpreted by myself the emergency room physician. Mild leukocytosis. No anemia. No renal failure. Urinalysis is positive for amphetamines. Benzos. Urinalysis is negative for infection. Assessment of risk: - Level of risk this is a very high risk patient - Was hospitalization considered? Yes patient is being admitted. Reexamination: I have gone back multiple times to the patient's room since he has been here and reevaluated for need of restraints along with the first evaluation where it was determined he needed restraints and he still does. He is much more somnolent but still is rocking back and forth and will be a fall risk. Consultation: I spoke with Dr. Diggs. He will except the patient with the patient needs to be to a point where he is not requiring restraints he says. Consultation: I spoke with the hospitalist about maybe admitting the patient to the ICU or to the hospital while drugs took effect but they declined. Assessment and plan: Psychosis Polysubstance abuse Dehydration ?2 L normal saline bolus in emergency room ?Ketamine initially as the patient was extremely agitated. Restraints. Then Geodon and Ativan as he started becoming more agitated. He also has dry oral mucosa so fluids were given. No evidence of renal failure. -Admission to neuropsychiatric unit for continued evaluation and treatment. - All lab work was reviewed and interpreted personally by myself, the ER physician - Evaluation and treatment of this problem were appropriate in the emergency setting Patient care transitioned to Dr. Goyal at shift change. Workup is complete but patient is not quite ready for admission Lab Data 12/27/24 15:47 12/27/24 15:47 Laboratory Results WBC 10.76 10^3/uL (3.29-11.43) 12/27/24 15:47 RBC 4.49 10^6/uL (3.85-5.65) 12/27/24 15:47 Hgb 13.10 g/dL (11.27-16.99) 12/27/24 15:47 Hct 39.3 % (37-53) 12/27/24 15:47 MCV 87.5 fl (82-101) 12/27/24 15:47 MCH 29.2 pg (27-33) 12/27/24 15:47 MCHC 33.3 g/dL (30-55) 12/27/24 15:47 RDW 12.8 % (12.1-15.1) 12/27/24 15:47 Plt Count 432 10^3/cmm (157-399) H 12/27/24 15:47 MPV 9.0 fL (7.4-10.4) 12/27/24 15:47 Neut % (Auto) 85.2 % 12/27/24 15:47 Lymph % (Auto) 12.0 % 12/27/24 15:47 [place] % (Auto) 2.0 % 12/27/24 15:47 Eos % (Auto) 0.2 % 12/27/24 15:47 Baso % (Auto) 0.3 % 12/27/24 15:47 Neut # (Auto) 9.17 10^3/uL (1.8-7.7) H 12/27/24 15:47 Lymph # (Auto) 1.3 10^3/uL (0.8-4.8) 12/27/24 15:47 [place] # (Auto) 0.2 10^3/uL (0.2-0.9) 12/27/24 15:47 Eos # (Auto) 0.0 10^3/uL (0.0-0.8) 12/27/24 15:47 Baso # (Auto) 0.0 10^3/uL (0.0-0.1) 12/27/24 15:47 Nucleated RBC % (auto) 0 % 12/27/24 15:47 Nucleated RBCs # 0.0 /100WBC 12/27/24 15:47 Sodium 140 mmol/L (136-145) 12/27/24 15:47 Potassium 3.7 mmol/L (3.5-5.1) 12/27/24 15:47 Chloride 106 mmol/L (98-107) 12/27/24 15:47 Carbon Dioxide 21 mmol/L (22-29) L 12/27/24 15:47 Anion Gap 16.7 (5-19) 12/27/24 15:47 BUN 6 mg/dL (6-20) 12/27/24 15:47 Creatinine 0.6 mg/dL (0.7-1.2) L 12/27/24 15:47 GFR Calculation 154.2 mL/min (90-130) H 12/27/24 15:47 Glucose 120 mg/dL (65-115) H 12/27/24 15:47 Calculated Osmolality 289 mOsm/kg (285-295) 12/27/24 15:47 Lactic Acid 1.1 mmol/L (0.5-2.2) 12/27/24 15:47 Calcium 8.8 mg/dL (8.5-10.5) 12/27/24 15:47 Total Bilirubin 0.4 mg/dL (0.15-1.2) 12/27/24 15:47 AST 20 U/L (0-40) 12/27/24 15:47 ALT 27 U/L (0-41) 12/27/24 15:47 Alkaline Phosphatase 80 U/L (40-130) 12/27/24 15:47 C-Reactive Protein 10.1 mg/L (0.0-4.9) H 12/27/24 15:47 Total Protein 6.5 g/dL (6.6-8.7) L 12/27/24 15:47 Albumin 3.6 g/dL (3.5-5.2) 12/27/24 15:47 Globulin 2.9 g/dL (1.3-4.6) 12/27/24 15:47 TSH 1.96 uIU/mL (0.27-4.20) 12/27/24 15:47 Urine Color Yellow (Yellow) 12/27/24 14:14 Urine Appearance Clear (CLEAR) 12/27/24 14:14 Urine pH 6.5 (5-7) 12/27/24 14:14 Ur Specific B[place]l 1.018 (1.005-1.030) 12/27/24 14:14 Urine Protein Negative (Negative) 12/27/24 14:14 Urine Glucose (UA) Negative (Normal) 12/27/24 14:14 Urine Ketones Negative (Negative) 12/27/24 14:14 Urine Blood Negative (Negative) 12/27/24 14:14 Urine Nitrate Negative (Negative) 12/27/24 14:14 Urine Bilirubin Negative (Negative) 12/27/24 14:14 Urine Urobilinogen 1.0 mg/dL (Negative) 12/27/24 14:14 Ur Leukocyte Esterase Negative (Negative) 12/27/24 14:14 Urine RBC 0-2 /hpf (0-2) 12/27/24 14:14 Urine WBC 0-5 /hpf (0-5) 12/27/24 14:14 Ur Squamous Epith Cells 0-5 /hpf (0-5) 12/27/24 14:14 Amorphous Sediment Not Reportable 12/27/24 14:14 Urine Bacteria None seen /hpf (NONE) 12/27/24 14:14 Hyaline Casts 0.40 /lpf 12/27/24 14:14 Salicylates < 0.3 mg/dL (3-10) L 12/27/24 15:47 Urine Opiates Screen Negative ng/mL (Negative) 12/27/24 14:14 Acetaminophen < 5.0 ug/mL (10-30) L 12/27/24 15:47 Ur Barbiturates Screen Negative ng/mL (Negative) 12/27/24 14:14 Ur Phencyclidine Scrn Negative ng/mL (Negative) 12/27/24 14:14 Ur Amphetamines Screen Positive ng/mL (Negative) H 12/27/24 14:14 U Benzodiazepines Scrn Positive ng/mL (Negative) H 12/27/24 14:14 Urine Cocaine Screen Negative ng/mL (Negative) 12/27/24 14:14 U Marijuana (THC) Screen Negative ng/mL (Negative) 12/27/24 14:14 Ethyl Alcohol < 10 mg/dL (0-10) 12/27/24 15:47 No radiology studies performed this visit Discharge Plan Discharge Patient Disposition: Admitted As Inpatient Clinical Impression: Acute psychosis, Methamphetamine abuse, Dehydration, Agitation, Polysubstance abuse Condition: Stable Coding Level of Care Code ED Tooth Clerk for Sukumar Betts
[2024-12-27 14:39] LABS: Glucose Urine UA Negative (Normal); Nitrate Urine Negative (Negative); Specific Gravity, Urine 1.018 (1.005-1.030)
[2024-12-27 14:44] LABS: Add Urine Microscopic? YES
[2024-12-27 14:46] LABS: PCP Screen Urine Negative (Negative)
--- NOTE | 2024-12-27 15:06 | PC.NURSE ---
Pt has had lab blood work ordered, this nurse called lab to see when pt was going to be straight stick, lab on the way to draw blood.
[2024-12-27 15:12] LABS: UA Slide Review UA Slide Review Perf
--- NOTE | 2024-12-27 15:20 | ECG_ITS ---
[facility]: 2024-12[facility]27 Pat Name: Abhilash Ibarra Department: Room: Gender: Male Screen Tender: : 1990 Requested By: Brie Whitaker Order Number: [id number] Rocha MD: Jn Lozada M.D. Measurements Intervals [place] Rate: 115 P: 71 AR: 147 QRS: -18 QRSD: 89 T: 62 QT: 346 QTc: 480 Interpretive Statements SINUS TACHYCARDIA ABNORMAL RHYTHM ECG Compared to ECG 10/22/2024 21:46:06 Sinus rhythm no longer present Sinus arrhythmia no longer present Electronically Signed On 12-29-2024 13:00:59 EDUCATION RESEARCH ANALYST by Jn Lozada M.D. [email or web address]
--- NOTE | 2024-12-27 15:28 | PC.NURSE ---
Provider to bedside at 1525 to assess further need for restraints. Restraints still required at this time, per Dr. Jenkins
[2024-12-27] MEDS: LORazepam 2 mg/mL INJ 1 mL IVP ×2 (15:40→21:14)
[2024-12-27] MEDS: water for injection-sterile 10 ML 2.1 ML (15:40)
[2024-12-27 16:07] LABS: Hematocrit 39.3 % (37-53); Hemoglobin 13.10 g/dL (11.27-16.99); Mean Corpuscular HGB Conc 33.3 g/dL (30-55); Mean Corpuscular Hemoglobin 29.2 pg (27-33); Mean Corpuscular Volume 87.5 fl (82-101); Nucleated Red Blood Cells % 0 %; Platelet Count 432 10^3/cmm (157-399); Red Blood Count 4.49 10^6/uL (3.85-5.65); White Blood Count 10.76 10^3/uL (3.29-11.43)
--- NOTE | 2024-12-27 16:15 | PC.NURSE ---
Upon pt rounding, pt has continued to pull at cardiac lines and BP cuff attempting to remove lines, pt is also stripping in room, pt has pulled down pants multiple times, pt continues to try to pull self up from bed, pt when asked what is his name pt does not answer, pt has at times flickered eyes open. Pt cardiac lines replaced for monitoring. PT BP cuff replaced back on for monitoring.
[2024-12-27 16:32] LABS: Lactic Sepsis W/Reflex 1.1 mmol/L (0.5-2.2)
[2024-12-27 16:43] LABS: Alanine Aminotransferase 27 U/L (0-41); Albumin Level 3.6 g/dL (3.5-5.2); Alkaline Phosphatase 80 U/L (40-130); Anion Gap 16.7 (5-19); Aspartate Amino Transferase 20 U/L (0-40); Blood Urea Nitrogen 6 mg/dL (6-20); Calcium 8.8 mg/dL (8.5-10.5); Carbon Dioxide 21 mmol/L (22-29); Chloride 106 mmol/L (98-107); Globulin 2.9 g/dL (1.3-4.6); Glucose 120 mg/dL (65-115); Osmolality Calculated 289 mOsm/kg (285-295); Potassium 3.7 mmol/L (3.5-5.1); Sodium 140 mmol/L (136-145); Thyroid Stimulating Hormone 1.96 uIU/mL (0.27-4.20); Total Protein 6.5 g/dL (6.6-8.7)
[2024-12-27 16:44] LABS: Acetaminophen < 5.0 ug/mL (10-30); Alcohol Level < 10 mg/dL (0-10); Salicylate < 0.3 mg/dL (3-10)
--- NOTE | 2024-12-27 18:06 | PC.NURSE ---
Dr. Jenkins to bedside to reevaluate PT. PT is still altered and thrashing in bed
--- NOTE | 2024-12-27 18:15 | PC.NURSE ---
Pt's dad called states I want nothing to do with him anymore, I'm making him a fernandez of the state, he is not allowed back here. I don't know why you guys won't do anything this is the 3rd time this has happened and he keeps getting released home. I has gone 24 hours without sleep and I found baggies of white powder substances in his room and he's been ordered these drugs online and using them. I'm done with him. I don't want to be called if he's discharged because he is not coming here.
--- NOTE | 2024-12-27 21:30 | PC.NURSE ---
Pt bilat lower leg restraints removed.
[2024-12-28] VITALS (8 sets, daily range): BP systolic 129–155; BP diastolic 73–108; PULSE 63–101; RESP 12–18; TEMP 36.3–37.3; O2SAT 96–100
--- NOTE | 2024-12-28 06:35 | PC.NURSE ---
vitals not done per nurse, resp. 12
--- NOTE | 2024-12-28 07:25 | W.PM.NPUH&PS ---
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 to be guarded and possibly paranoid, he did not appear to be responding to internal stimuli but he seem to be disconnected from the day that he was receiving in the room with a clearly altered mental status. His attention span was impaired. His recent and remote memory appeared impaired. His insight, judgment and impulse control are all impaired. Vitals/I&O/Wt Last Vital Signs Temp 97.4 F L 12/27/24 14:16 Pulse 63 12/28/24 03:11 Resp 12 12/28/24 06:00 BP 129/73 12/28/24 03:11 Pulse Ox 100 12/28/24 03:11 O2 Del Method Room Air 12/28/24 03:11 12/27/24 12/28/24 12/28/24 22:59 06:59 14:59 Intake Total 1010 / 1010 999 Balance 1010 / 1010 999 Weight last 48 hrs Weight 99.79 kg Data NPU 12/27/24 15:47 12/27/24 15:47 A&P Assessment and plan 1. Generalized anxiety disorder: 2. Major depression: 3. Medication withdrawal: 4. Polysubstance abuse: 5. Substance-induced psychotic disorder: 6. Acute psychosis: 7. Altered mental status: Plan: 34-year-old male admitted to the neuropsychiatric unit for the third time this year fourth time since 2022 with limited insight regarding his issues with substance abuse particularly opioid dependence. 1. Continue current medication. 2. Continue every 15 minute checks for safety. 3. Encouraged individual, group and milieu therapy. 4. Encouraged sober living treatment after discharge at the highest level care to which he is willing to commit. 5. Observe against the backdrop of the 96-hour hold. 6. Obtain collateral information. 7. Consider hospitalist consult for his mental status and affect appearing very different from the past and need to consider possible head trauma or injury and see if there is anything else to explain his distinctly different presentation. PDMP PDMP Reviewed: Not Reviewed Involuntary Hold Information 96 Hour Hold: 96 Hour Involuntary Admission: No Attestations NPU Medical Necessity Statement*: Inpatient psychiatric hospitalization is medically necessary and the clinically appropriate intervention at this time. We will monitor/initiate medications and make changes as indicated. Patient will be in the hospital for over two midnights. The patient's likely length of stay is 7-10 days. Coding Level of Care Code Acute Code for [facility] Fwd Diagnoses Generalized anxiety disorder F41.1 Episode of recurrent major depressive disorder, unspecified depression episode severity F33.9 Active/Remission status: currently active Major depression episode severity: unspecified Major depression recurrence: recurrent Medication withdrawal F19.939 Polysubstance abuse F19.10 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 Altered mental status R41.82
[2024-12-28] MEDS: CITALOPRAM 40 MG TABLET PO (10:35)
--- NOTE | 2024-12-28 10:55 | PC.OT ---
Hold OT evaluation today per nursing; will attempt again at later time.
--- NOTE | 2024-12-28 20:05 | CTR_ITS ---
PROCEDURE INFORMATION: Exam: CT Head Without Contrast Exam date and time: 12/28/2024 9:47 PM Age: 34 years old Clinical indication: Injury or trauma; Blunt trauma (contusions or hematomas); Altered mental status/memory loss; Confusion or disorientation; Fall with confusion. ; Additional info: Altered mental status/fall TECHNIQUE: Imaging protocol: Computed tomography of the head without contrast. Radiation optimization: All CT scans at this facility use at least one of these dose optimization techniques: automated exposure control; mA and/or kV adjustment per patient size (includes targeted exams where dose is matched to clinical indication); or iterative reconstruction. COMPARISON: CT head wo con* [id number] 10/23/2024 3:52 AM RADIATION DOSE METRICS: Total DLP (mGy-cm): 1145.33 FINDINGS: Brain: No acute intracranial hemorrhage. No midline shift or mass effect. No acute territorial infarct. Cerebral ventricles: The ventricles and sulci are commensurate with age. Paranasal sinuses: Visualized sinuses are unremarkable. No fluid levels. Mastoid air cells: Visualized mastoid air cells are well aerated. Bones: Unremarkable. No acute fracture. Soft tissues: Unremarkable. CT/CT head wo con* [id number] IMPRESSION: No acute intracranial hemorrhage. No midline shift or mass effect.
--- NOTE | 2024-12-28 20:21 | PC.NURSE ---
At 0700 patient was found to be incontinent of urine. He was unable to form words, he was having myoclonus of the bue. Patient had his hair wrapped around left thumb. The thumb was swollen and purple. Hair was removed from the thumb without incidence. The patient was unable to follow commands. The patient was dressed in clean scrubs, a brief and linen changed. 1:1 sitter was ordered for patient safety. Throughout the shift the patient slowly started responding verbally and following commands. He ambulated in the [place] this morning. He refused lunch and dinner. This evening the patient diastolic bp was 108. HR 100. Orders were placed for a hospitalist consult.
--- NOTE | 2024-12-28 20:23 | PM.CONSULT ---
Providers/Reason For Consult Consulting Physician/Specialty*: Noam Ledbetter MD Reason for Consult*: AMS and HTN Attending Physician: Ghanshyam Diggs MD Primary Care Provider: Garrett Castillo History of Present Illness History of Present Illness As per the previous note since the patient was unable to cooperate/interact and was sleepy and drowsy Next Abhilash Ibarra is a 34 year old male with past medical history of mild autism, anxiety, depression, polysubstance abuse, substance-induced psychotic disorders and previous admissions to Neuropsych Unit presented to emergency room with worsening psychosis. The patient had multiple engineering designer drugs as per the previous documentation possible K2 and was quite agitated in the ER with 96-hour hold by police. The patient was not coherent and [id number] he was unable to be tackled. Later on neuropsych was taken on board and admitted under psych. I was consulted for further management of altered mental status and hypertension. On review of his blood pressure readings more or less they were controlled or related to his agitation or psychosis with mild high readings. As per the physician taking care of the patient I was informed that usually he comes with psychotic features but this time he is a little bit altered and wobbly and could not hold himself therefore he has a fall in the psych unit. Patient has taken possible high dose of polysubstance/recreational drugs that might be affecting his mentation at the moment. I requested urgent CT head and it was unremarkable for any stroke. Review of Systems General: Reports: ROS unobtainable due to mental status Medications/Allergies Home Medications ?Medication ?Instructions ?Recorded ?Confirmed ?Last Taken ?Type doxepin 10 mg capsule 10 mg PO BEDTIME 30 days #30 caps 11/22/24 12/28/24 Unknown Rx citalopram 40 mg tablet 40 mg PO DAILY 30 days #30 tabs 12/12/24 12/28/24 Unknown Rx hydroxyzine pamoate 25 mg capsule 50 mg (2 x 25 mg) PO Q6H PRN 12/12/24 12/28/24 Unknown Rx Anxiety 30 days #120 caps propranolol 20 mg tablet 10 mg (1/2 x 20 mg) PO BID 30 days 12/12/24 12/28/24 Unknown Rx #30 tabs trazodone 50 mg tablet 50 mg PO BEDTIME PRN Sleep 30 days 12/12/24 12/28/24 Unknown Rx #30 tabs clonazepam 0.5 mg tablet (Klonopin) 0.25 mg PO BID 12/17/24 12/28/24 Unknown History folic acid 1 mg tablet 1 mg PO DAILY #30 tabs 12/18/24 12/28/24 Unknown Rx gabapentin 800 mg tablet 800 mg PO TID #90 tabs 12/23/24 12/28/24 Unknown Rx baclofen 20 mg tablet 20 mg PO BEDTIME 12/28/24 12/28/24 Unknown History olanzapine 5 mg tablet 5 mg PO 1800 12/28/24 12/28/24 Unknown History Allergies Allergy/AdvReac Type Severity Reaction Status Date / Time No Known Allergies Allergy Verified 12/23/24 11:53 Current Medications Generic Name Dose Route Start Last Admin Trade Name Chung PRN Reason Stop Dose Admin Acetaminophen 650 mg 12/28/24 03:11 12/28/24 10:39 Acetaminophen 325 Mg Tablet PO 650 mg Q4H PRN Administration MILD PAIN Citalopram Hydrobromide 40 mg 12/28/24 09:00 12/28/24 10:35 Citalopram 40 Mg Tablet PO 40 mg DAILY BASIM Administration Clonazepam 0.25 mg 12/28/24 09:00 12/28/24 17:46 Clonazepam 0.5 Mg Tablet PO 0.25 mg BID BASIM Administration Folic Acid 1 mg 12/28/24 09:00 12/28/24 10:45 Folic Acid 1 Mg Tablet PO 1 mg DAILY BASIM Administration Gabapentin 800 mg 12/28/24 09:00 12/28/24 14:54 Gabapentin 400 Mg Capsule PO 800 mg TID BASIM Administration Olanzapine 5 mg 12/28/24 18:00 12/28/24 17:46 Olanzapine 5 Mg Tablet PO 5 mg 1800 BASIM Administration Propranolol HCl 10 mg 12/28/24 09:00 12/28/24 17:46 Propranolol 20 Mg Tablet PO 10 mg BID BASIM Administration PFSH Acute PFSH: Medical History (Updated 12/29/24 @ 01:21 by Noam Ledbetter MD) Insomnia Major depressive disorder, recurrent, moderate Essential hypertension Generalized anxiety disorder Nicotine use disorder Major depressive disorder in remission Quit drug use in remote past Psychiatric care Major depression Surgical History No pertinent past surgical history Family History Mother Cancer breast cancer Father Psychiatric illness Social History Smoking and tobacco/nicotine status: current every day tobacco/nicotine user (vape) Quit status (tobacco/nicotine): has quit using Former quit date comment: 4 year history of smoking Alcohol intake: never Substance/Drug Use: former Household members: family Housing: House Marital status: Unknown Highest education level completed: Some College, No Degree Vitals/I&O/Wt Last Vital Signs Temp 99.2 F 12/28/24 19:56 Pulse 84 12/28/24 19:56 Resp 18 12/28/24 19:56 BP 132/85 12/28/24 19:56 Pulse Ox 99 12/28/24 19:56 O2 Del Method Room Air 12/28/24 19:56 12/28/24 12/28/24 12/28/24 06:59 14:59 22:59 Intake Total 999 Balance 999 Weight last 48 hrs Weight 99.79 kg Physical Exam Narrative: I was unable to perform clinical examinations and the patient was sleepy and unable to interact However vitals are stable and patient is alert, can be awakened on taking his name but he prefers to sleep. Data 12/27/24 15:47 12/27/24 15:47 A&P Assessment and plan 1. Altered mental status: Consulted for altered mental status, CT head negative for acute stroke Patient has taken recreational/polysubstance abuse drugs which might be the reason of his current status. Continue to monitor and avoid high dose of sedatives at the moment And to have fall precautions, to assist the patient while walking Neurochecks every shift Seizure precautions as well since certain polysubstance drugs can lead to seizures and there is no proper history of the type of substance taken by the patient Continue to monitor his vitals, blood glucose and lab work If worsening neurological status, CT head without contrast/consider head MRI stat 2. Hypertension: Patient blood pressure is more or less controlled and there are few high readings which are moderate in number could be related to his psychoses and agitation Continue to monitor No antihypertensive indicated at this moment since the patient might be under the effect of substance abuse drugs PDMP PDMP Reviewed: Not Reviewed Consult Attestations Medical Necessity Statement: Patient will stay overnight for the management of polysubstance abuse drugs/induce psychosis as per discretion of the primary team Coding Level of Care Code Acute Code for [facility] Fwd Diagnoses Altered mental status R41.82 Hypertension I10
[2024-12-29 03:49] VITALS: BP 135/92; PULSE 69; RESP 18; TEMP 36.6; O2SAT 98
--- NOTE | 2024-12-29 04:30 | PC.NURSE ---
FALL At approximately 1945 the sitter alerted nursing staff that pt had fallen in his room. Upon arrival to pts room it is noted that pt is sitting in the floor between the wall and his bed. The sitter stated that the pt was sitting renee cross on the bed and fell backwards and hit his head on the wall. This nurse and Smitha RN assessed the pt and took his vitals at this time. BP- 132/85, HR- 84, RR- 18. and O2- 99%. Pt stated that he hit his head when he fell. Nursing staff examined the pts head and did not note any bumps or bruises. Dr. Diggs was still on the unit and was asked to come evaluate the pt at this time. Nursing staff assisted pt back into bed. Dontae contacted the hospitalist who ordered a head CT w/o contrast. Pt laid in bed with sitter at bedside until he was taken to CT. Since then pt has slept mostly however woke up around 0230 and asked for Ibuprofen for his head. Pt is now observed resting in bed quietly with eyes closed.
[2024-12-29] MEDS: CITALOPRAM 40 MG TABLET PO (08:04)
--- NOTE | 2024-12-29 10:54 | PC.NURSE ---
Pt. stated he wanted all his people removed from his file that can get information about him. Signee asked so when your dad calls here you want don't even want us to let him know you are here and he said that is correct.
--- NOTE | 2024-12-29 11:07 | PC.NURSE ---
Pt. was asked to sign his paperwork on who he want on his contact list and, pt. admission, basic info about the unit. Pt. refused to sign.
--- NOTE | 2024-12-29 12:28 | PC.NURSE ---
Pt. states he took pseudoephedrine at home and that he wants to go to rehab.
--- NOTE | 2024-12-29 12:46 | PC.NURSE ---
Pt. said the last thing he remembers is taking a bottle of pills his friend left in the car called 5HTP, but he says he doesn't think it was really 5HTP.
[2024-12-29 14:00] VITALS: BP 143/91; PULSE 74; RESP 18; TEMP 37.1; O2SAT 100
--- NOTE | 2024-12-29 14:43 | P.NPUPN_ITS ---
Subjective NPU 2 Subjective: Patient presented today reporting that he is doing better. He was more himself first reports and direct observation. He reports that he was really out there but that he had gotten a bottle from somebody that had been in a vehicle with him and in the bottle said 5 HTP. He reports that he consumed much of that bottle and is not sure what it was but that he did not really remember much after that moment until recently. He denied any side effects of the medication but reported an openness/readiness to embrace rehab. Mental Status Exam 2 MSE Comments: This is an obese white male in hospital scrubs with improved grooming and eye contact. No abnormal movements except for resolving psychomotor retardation. More cooperative with exam in mild distress. His speech was decreased in regards to rate, rhythm, and prosody with reduction in pauses after questions and prior to answers. His mood was described as better, his affect was less restricted in range/flat. His thought process was more organized. Thought content: Patient denied suicidal or homicidal ideation. There were no delusions reported and he appeared less guarded and paranoid, he did not appear to be responding to internal stimuli. His attention span was limited but improving. His recent and remote memory appeared improving. His insight, judgment and impulse control are all limited but improving Vitals/I&O/Wt Last Vital Signs Temp 97.9 F 12/29/24 03:49 Pulse 69 12/29/24 03:49 Resp 18 12/29/24 03:49 BP 135/92 12/29/24 03:49 Pulse Ox 98 12/29/24 03:49 O2 Del Method Room Air 12/29/24 03:49 Data NPU 12/27/24 15:47 12/27/24 15:47 A&P Assessment and plan 1. Generalized anxiety disorder: 2. Major depression: 3. Medication withdrawal: 4. Polysubstance abuse: 5. Substance-induced psychotic disorder: 6. Acute psychosis: 7. Altered mental status: Plan: 34-year-old male admitted to the neuropsychiatric unit for the third time this year fourth time since 2022 with limited insight regarding his issues with substance abuse particularly opioid dependence. 1. Continue current medication. 2. Continue every 15 minute checks for safety. 3. Encouraged individual, group and milieu therapy. 4. Encouraged sober living treatment after discharge at the highest level care to which he is willing to commit. 5. Observe against the backdrop of the 96-hour hold. 6. Obtain collateral information. 7. Consider hospitalist consult for his mental status and affect appearing very different from the past and need to consider possible head trauma or injury and see if there is anything else to explain his distinctly different presentation. Appreciate hospitalist consult and will monitor recommendations and make changes as indicated. PDMP PDMP Reviewed: Not Reviewed Involuntary Hold Information 2 Hold Status: Legal Status: 96 Hour Hold Date/Time Hold Expires: 01/02/25 @ 14:32 96 Hour Hold: 96 Hour Involuntary Admission: No Attestations NPU 2 Medical Necessity Statement*: Inpatient psychiatric hospitalization is medically necessary and the clinically appropriate intervention at this time. We will monitor/initiate medications and make changes as indicated. The patient's likely length of stay is 6-9 days. Coding Level of Care Code Acute Code for g Fwd Diagnoses Generalized anxiety disorder F41.1 Episode of recurrent major depressive disorder, unspecified depression episode severity F33.9 Active/Remission status: currently active Major depression episode severity: unspecified Major depression recurrence: recurrent Medication withdrawal F19.939 Polysubstance abuse F19.10 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 Altered mental status R41.82
[2024-12-29 20:22] VITALS: BP 124/86; PULSE 71; RESP 17; TEMP 37.1; O2SAT 100
--- NOTE | 2024-12-30 00:56 | W.PM.EVENTAC ---
Event Note Event Note: follow up for AMS patient more alert and oriented and able to provide history Impression/Assessment: AMS secondary to polysubstance drug abuse, unknown recreational drug use? Objectives: CT head ruled out acute stroke and patient got better after 24 hours, likely under the affect of polysubstance drugs abuse leading to altered mentation vitals reviewed: clinically patient awake alert and oriented, no gross focal neurological deficit Plan: continue management as per primary psych team for polysubstance drug abuse induced psychosis, currently better. sign off for any further concerns and queries, kindly call/consult accordingly thank you for involving in taking care of the patient Event Notes Attestations Time Spent in Patient Care: 20min
--- NOTE | 2024-12-30 06:49 | PC.NURSE ---
pt refused weight and vs resp 17
[2024-12-30 08:40] VITALS: BP 127/84; PULSE 87; RESP 18; TEMP 37.2; O2SAT 100
[2024-12-30] MEDS: CITALOPRAM 40 MG TABLET PO (08:44)
[2024-12-30 09:43] LABS: Hematocrit 39.4 % (37-53); Hemoglobin 13.20 g/dL (11.27-16.99); Mean Corpuscular HGB Conc 33.5 g/dL (30-55); Mean Corpuscular Hemoglobin 29.1 pg (27-33); Mean Corpuscular Volume 86.8 fl (82-101); Nucleated Red Blood Cells % 0 %; Platelet Count 491 10^3/cmm (157-399); Red Blood Count 4.54 10^6/uL (3.85-5.65); White Blood Count 7.13 10^3/uL (3.29-11.43)
[2024-12-30 09:55] LABS: Respiratory Syncytial Virus Ce NEGATIVE (Negative); SARS-CoV-2 PCR NEGATIVE (Negative)
[2024-12-30 09:56] LABS: Alanine Aminotransferase 34 U/L (0-41); Albumin Level 3.8 g/dL (3.5-5.2); Alkaline Phosphatase 77 U/L (40-130); Blood Urea Nitrogen 11 mg/dL (6-20); Calcium 8.6 mg/dL (8.5-10.5); Carbon Dioxide 22 mmol/L (22-29); Chloride 102 mmol/L (98-107); Globulin 2.8 g/dL (1.3-4.6); Glucose 69 mg/dL (65-115); Osmolality Calculated 280 mOsm/kg (285-295); Sodium 136 mmol/L (136-145); Total Protein 6.6 g/dL (6.6-8.7)
[2024-12-30 10:02] LABS: Anion Gap 15.8 (5-19); Aspartate Amino Transferase 28 U/L (0-40); Potassium 3.8 mmol/L (3.5-5.1)
[2024-12-30 14:00] VITALS: BP 134/85; PULSE 82; RESP 18; TEMP 36.8; O2SAT 100
--- NOTE | 2024-12-30 14:15 | W.PM.NPUPNS ---
Subjective NPU Subjective: Patient presented today reporting that he is doing better and he was more himself per staff reports and direct observation as well as his father's assessment. Father reports that son was really out there and had him worried about him having lingering effects given how disorganized he apparently was after this ingestion. He denied any side effects to the medication and continued to report an openness/readiness to embrace rehab. Mental Status Exam MSE Comments: This is an obese white male in hospital scrubs with improved grooming and eye contact. No abnormal movements except for resolving psychomotor retardation. More cooperative with exam in mild distress. His speech was decreased in regards to rate, rhythm, and prosody with reduction in pauses after questions and prior to answers. His mood was described as better, his affect was less restricted in range/flat. His thought process was more organized. Thought content: Patient denied suicidal or homicidal ideation. There were no delusions reported and he appeared less guarded and paranoid, he did not appear to be responding to internal stimuli. His attention span was limited but improving. His recent and remote memory appeared improving. His insight, judgment and impulse control are all limited but improving Vitals/I&O/Wt Last Vital Signs Temp 99 F 12/30/24 08:40 Pulse 87 12/30/24 08:40 Resp 18 12/30/24 08:40 BP 127/84 12/30/24 08:40 Pulse Ox 100 12/30/24 08:40 O2 Del Method Room Air 12/30/24 08:40 Data NPU 12/30/24 09:34 12/30/24 09:34 A&P Assessment and plan 1. Generalized anxiety disorder: 2. Major depression: 3. Medication withdrawal: 4. Polysubstance abuse: 5. Substance-induced psychotic disorder: 6. Acute psychosis: 7. Altered mental status: Plan: 34-year-old male admitted to the neuropsychiatric unit for the third time this year fourth time since 2022 with limited insight regarding his issues with substance abuse particularly opioid dependence. 1. Continue current medication. 2. Continue every 15 minute checks for safety. 3. Encouraged individual, group and milieu therapy. 4. Encouraged sober living treatment after discharge at the highest level care to which he is willing to commit. Reports a willingness to do IP rehab. 5. Observe against the backdrop of the 96-hour hold. 6. Obtain collateral information. Spoke with dad who felt the increased gravity of this episode as the team did. 7. Consider hospitalist consult for his mental status and affect appearing very different from the past and need to consider possible head trauma or injury and see if there is anything else to explain his distinctly different presentation. Appreciate hospitalist consult and will monitor recommendations and make changes as indicated. PDMP PDMP Reviewed: Not Reviewed Involuntary Hold Information Hold Status: Legal Status: 96 Hour Hold Date/Time Hold Expires: 01/02/25 @ 14:32 96 Hour Hold: 96 Hour Involuntary Admission: No Attestations NPU Medical Necessity Statement*: Inpatient psychiatric hospitalization is medically necessary and the clinically appropriate intervention at this time. We will monitor/initiate medications and make changes as indicated. The patient's likely length of stay is 5-8 days. Coding Level of Care Code Acute Code for [facility] Fwd Diagnoses Generalized anxiety disorder F41.1 Episode of recurrent major depressive disorder, unspecified depression episode severity F33.9 Active/Remission status: currently active Major depression episode severity: unspecified Major depression recurrence: recurrent Medication withdrawal F19.939 Polysubstance abuse F19.10 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 Altered mental status R41.82
[2024-12-30 20:08] VITALS: BP 123/82; PULSE 79; RESP 18; TEMP 37; O2SAT 100
[2024-12-31 06:00] VITALS: BP 141/97; PULSE 97; RESP 17; TEMP 37.3; O2SAT 97
[2024-12-31] MEDS: CITALOPRAM 40 MG TABLET PO (07:52)
[2024-12-31 14:00] VITALS: BP 127/92; PULSE 98; RESP 16; TEMP 37.1; O2SAT 99
--- NOTE | 2024-12-31 14:43 | P.NPUPN_ITS ---
Subjective NPU 2 Subjective: Patient presented today reporting that he is continuing to feel better from how he was after that ingestion prior to admission. He endorsed understanding that he is in the more aggressive inpatient rehab versus long-term sober living treatment and he endorses a commitment to working with the treatment team on finding appropriate options towards that end. He denies any issues with the medication other than there was some error and prescribing and that his Klonopin 0.5 mg was prescribed as one half tab p.o. twice daily 0.5 mg p.o. twice daily. We discussed correcting that. He denied any side effects to his medication. Mental Status Exam 2 MSE Comments: This is an obese white male in hospital scrubs with improved grooming and eye contact. No abnormal movements except for resolving psychomotor retardation. Cooperative with exam in mild distress. His speech was decreased in regards to rate, rhythm, and prosody with no pauses prior to answers. His mood was described as better, his affect was less restricted in range/flat. His thought process was more organized. Thought content: Patient denied suicidal or homicidal ideation. There were no delusions reported and he appeared less guarded and paranoid, he did not appear to be responding to internal stimuli. His attention span was limited but improving. His recent and remote memory appeared improving. His insight, judgment and impulse control are all limited but improving Vitals/I&O/Wt Last Vital Signs Temp 99.1 F 12/31/24 06:00 Pulse 97 12/31/24 06:00 Resp 17 12/31/24 06:00 BP 141/97 12/31/24 06:00 Pulse Ox 97 12/31/24 06:00 O2 Del Method Room Air 12/31/24 06:00 Data NPU 12/30/24 09:34 12/30/24 09:34 A&P Assessment and plan 1. Generalized anxiety disorder: 2. Major depression: 3. Medication withdrawal: 4. Polysubstance abuse: 5. Substance-induced psychotic disorder: 6. Acute psychosis: 7. Altered mental status: Plan: 34-year-old male admitted to the neuropsychiatric unit for the third time this year fourth time since 2022 with limited insight regarding his issues with substance abuse particularly opioid dependence. 1. Continue current medication. 2. Continue every 15 minute checks for safety. 3. Encouraged individual, group and milieu therapy. 4. Encouraged sober living treatment after discharge at the highest level care to which he is willing to commit. Reports a willingness to do IP rehab. He reports that he will continue to work with team on rehab/sober living treatment options. 5. Observe against the backdrop of the 96-hour hold. 6. Obtain collateral information. Spoke with dad who felt the increased gravity of this episode as the team did. 7. Consider hospitalist consult for his mental status and affect appearing very different from the past and need to consider possible head trauma or injury and see if there is anything else to explain his distinctly different presentation. Appreciate hospitalist consult and will monitor recommendations and make changes as indicated. PDMP PDMP Reviewed: Not Reviewed Involuntary Hold Information 2 Hold Status: Legal Status: 96 Hour Hold Date/Time Hold Expires: 01/02/25 @ 14:32 96 Hour Hold: 96 Hour Involuntary Admission: No Attestations NPU 2 Medical Necessity Statement*: Inpatient psychiatric hospitalization is medically necessary and the clinically appropriate intervention at this time. We will monitor/initiate medications and make changes as indicated. The patient's likely length of stay is 2-5 days. Coding Level of Care Code Acute Code for [facility] Diagnoses Generalized anxiety disorder F41.1 Episode of recurrent major depressive disorder, unspecified depression episode severity F33.9 Active/Remission status: currently active Major depression episode severity: unspecified Major depression recurrence: recurrent Medication withdrawal F19.939 Polysubstance abuse F19.10 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 Altered mental status R41.82
[2024-12-31 20:30] VITALS: BP 127/87; PULSE 88; RESP 17; TEMP 36.7; O2SAT 99
--- NOTE | 2024-12-31 21:57 | PC.NURSE ---
MEDICATIONS PATIENT CAME TO NURSES DESK REQUESTING ADDITIONAL SLEEP MEDICATION. STATED HE IS HAVING A HARD TIME GOING AND STAYING ASLEEP. 2ND TRAZODONE 50MG PO AND ZYPREXA ZYDIS 5MG SL GIVEN.
[2025-01-01 05:14] VITALS: BP 133/96; PULSE 100; RESP 17; TEMP 36.7; O2SAT 100
[2025-01-01] MEDS: CITALOPRAM 40 MG TABLET PO (07:52)
--- NOTE | 2025-01-01 09:46 | P.NPUPN_ITS ---
Subjective NPU 2 Subjective: Patient presented today reporting that he is doing all right. He did endorse continuing to work with the work team on possible sober living options. This is a positive step given his history of being ambivalent or resistant to active sober living treatment. He also endorsed some difficulties with sleep and we discussed the risks, benefits and alternatives of the trial of Seroquel and he understood and agreed to proceed as is documented in his note. He denied any side effects to medication. Mental Status Exam 2 MSE Comments: This is an obese white male in hospital scrubs with improved grooming and eye contact. No abnormal movements except for resolving psychomotor retardation. Cooperative with exam in mild distress. His speech was decreased in regards to rate, rhythm, and prosody with no pauses prior to answers. His mood was described as better, his affect was less restricted in range/flat. His thought process was more organized. Thought content: Patient denied suicidal or homicidal ideation. There were no delusions reported and he appeared less guarded and paranoid, he did not appear to be responding to internal stimuli. His attention span was limited but improving. His recent and remote memory appeared improving. His insight, judgment and impulse control are all limited but improving Vitals/I&O/Wt Last Vital Signs Temp 98.0 F 01/01/25 05:14 Pulse 100 01/01/25 05:14 Resp 17 01/01/25 05:14 BP 133/96 01/01/25 05:14 Pulse Ox 100 01/01/25 05:14 O2 Del Method Room Air 01/01/25 05:14 Data NPU 12/30/24 09:34 12/30/24 09:34 A&P Assessment and plan 1. Generalized anxiety disorder: 2. Major depression: 3. Medication withdrawal: 4. Polysubstance abuse: 5. Substance-induced psychotic disorder: 6. Acute psychosis: 7. Altered mental status: Plan: 34-year-old male admitted to the neuropsychiatric unit for the third time this year fourth time since 2022 with limited insight regarding his issues with substance abuse particularly opioid dependence. 1. Continue current medication. Possibly add Seroquel for sleep. 2. Continue every 15 minute checks for safety. 3. Encouraged individual, group and milieu therapy. 4. Encouraged sober living treatment after discharge at the highest level care to which he is willing to commit. Reports a willingness to do IP rehab. He reports that he will continue to work with team on rehab/sober living treatment options. 5. Observe against the backdrop of the 96-hour hold. 6. Obtain collateral information. Spoke with dad who felt the increased gravity of this episode as the team did. 7. Consider hospitalist consult for his mental status and affect appearing very different from the past and need to consider possible head trauma or injury and see if there is anything else to explain his distinctly different presentation. Appreciate hospitalist consult and will monitor recommendations and make changes as indicated. PDMP PDMP Reviewed: Not Reviewed Involuntary Hold Information 2 Hold Status: Legal Status: 96 Hour Hold Date/Time Hold Expires: 01/02/25 @ 14:32 96 Hour Hold: 96 Hour Involuntary Admission: No Attestations NPU 2 Medical Necessity Statement*: Inpatient psychiatric hospitalization is medically necessary and the clinically appropriate intervention at this time. We will monitor/initiate medications and make changes as indicated. The patient's likely length of stay is 1-4 days. Coding Level of Care Code Acute Code for [facility] Diagnoses Generalized anxiety disorder F41.1 Episode of recurrent major depressive disorder, unspecified depression episode severity F33.9 Active/Remission status: currently active Major depression episode severity: unspecified Major depression recurrence: recurrent Medication withdrawal F19.939 Polysubstance abuse F19.10 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 Altered mental status R41.82
--- NOTE | 2025-01-01 10:01 | PC.NURSE ---
pt continues to cry about being here worried about her son being with out her for the first time since he was born (he is 18 non verbal, autistic with a 2 year old ablility per pt statement)and that she was not able to explain to him why she was being taken away. that she only 10 minutes to call her mom to come and look after her son. her mom who drinks and does drugs but now her brother and sister in law are at her house watching him and she trust them. pt states her sister is bipolar and lied about her trying to kill herself and her son that the only thing she gives her son is his prescribed medication. she states she is in the middle of gettign guardianship of her son because he is 18 and is afraid that this will ruin it. she also states she is in the process of buying a house and the person she is trying to buy it from was upset about some paint an at that time she told her mom if this home loan does not go through she is going to off herself. she stated her mother then told her sister about it but the sister lied about her trying to kill herself and valentin. she was babysitting at the time she stated.
[2025-01-01 14:00] VITALS: PULSE 104; RESP 17; TEMP 37; O2SAT 100
[2025-01-01 19:42] VITALS: BP 119/80; PULSE 86; RESP 17; TEMP 36.9; O2SAT 99
--- NOTE | 2025-01-01 21:00 | PC.NURSE ---
MEDICATION PATIENT REQUESTED DR JANE REVIEW HIS MEDICATIONS. PATIENT IS REQUESTING SEROQUELAT BEDTIME AND AN INCREASE OF HIS TRAZODONE, BOTH TO HELP HIM SLEEP. DR JANE APPROVED MED CHANGES. ORDERS FOR SEROQUEL 50MG AT BEDTIME, AND TRAZODONE WAS INCREASED TO 100MG AT BEDTIME PRN SLEEP.
[2025-01-02 06:00] VITALS: BP 127/85; PULSE 108; RESP 17; TEMP 36.6; O2SAT 97
[2025-01-02] MEDS: CITALOPRAM 40 MG TABLET PO (09:05)
[2025-01-02 13:41] VITALS: BP 120/83; PULSE 99; RESP 16; TEMP 37.1; O2SAT 96
--- NOTE | 2025-01-02 16:57 | P.NPUPN_ITS ---
Subjective NPU 2 Subjective: Patient presents today reporting that he is continuing to be committed to getting into a sober living program. I do lengthy discussion about how happy we were that he was finally seeming like he was going to move forward with this as this has been a point of concern during each of his hospitalizations as he has previously been resistant to any kind of treatment that was focused on his recovery and use pattern overall. He reports his last episode was very scary and that he is conscious of the fact that he needs to make these changes or think concerned about very poorly for him. He denied any side effects to the medication. Mental Status Exam 2 MSE Comments: This is an obese white male in hospital scrubs with improved grooming and eye contact. No abnormal movements except for resolving psychomotor retardation. Cooperative with exam in mild distress. His speech was decreased in regards to rate, rhythm, and prosody with no pauses prior to answers. His mood was described as better, his affect was less restricted in range/flat. His thought process was more organized. Thought content: Patient denied suicidal or homicidal ideation. There were no delusions reported and he appeared less guarded and paranoid, he did not appear to be responding to internal stimuli. His attention span was limited but improving. His recent and remote memory appeared improving. His insight, judgment and impulse control are all limited but improving Vitals/I&O/Wt Last Vital Signs Temp 97.8 F 01/02/25 22:48 Pulse 75 01/02/25 22:48 Resp 17 01/02/25 19:52 BP 132/95 01/02/25 22:48 Pulse Ox 98 01/02/25 22:48 O2 Del Method Room Air 01/02/25 22:48 Data NPU 12/30/24 09:34 12/30/24 09:34 A&P Assessment and plan 1. Generalized anxiety disorder: 2. Major depression: 3. Medication withdrawal: 4. Polysubstance abuse: 5. Substance-induced psychotic disorder: 6. Acute psychosis: 7. Altered mental status: Plan: 34-year-old male admitted to the neuropsychiatric unit for the third time this year fourth time since 2022 with limited insight regarding his issues with substance abuse particularly opioid dependence. 1. Continue current medication. Added Seroquel for sleep. 2. Continue every 15 minute checks for safety. 3. Encouraged individual, group and milieu therapy. 4. Encouraged sober living treatment after discharge at the highest level care to which he is willing to commit. Reports a willingness to do IP rehab. He reports that he will continue to work with team on rehab/sober living treatment options. Working with social work team on possible discharge on or Tuesday to a sober living program. 5. Observe against the backdrop of the 96-hour hold. 6. Obtain collateral information. Spoke with dad who felt the increased gravity of this episode as the team did. 7. Consider hospitalist consult for his mental status and affect appearing very different from the past and need to consider possible head trauma or injury and see if there is anything else to explain his distinctly different presentation. Appreciate hospitalist consult and will monitor recommendations and make changes as indicated. PDMP PDMP Reviewed: Not Reviewed Involuntary Hold Information 2 Hold Status: Legal Status: 96 Hour Hold Date/Time Hold Expires: 01/02/25 @ 14:32 96 Hour Hold: 96 Hour Involuntary Admission: No Attestations NPU 2 Medical Necessity Statement*: Inpatient psychiatric hospitalization is medically necessary and the clinically appropriate intervention at this time. We will monitor/initiate medications and make changes as indicated. The patient's likely length of stay is 1-3 days. Coding Level of Care Code Acute Code for [facility] Fwd Diagnoses Generalized anxiety disorder F41.1 Episode of recurrent major depressive disorder, unspecified depression episode severity F33.9 Active/Remission status: currently active Major depression episode severity: unspecified Major depression recurrence: recurrent Medication withdrawal F19.939 Polysubstance abuse F19.10 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 Altered mental status R41.82
[2025-01-02 19:52] VITALS: BP 121/82; PULSE 97; RESP 17; TEMP 36.9; O2SAT 97
[2025-01-02 22:48] VITALS: BP 132/95; PULSE 75; TEMP 36.6; O2SAT 98
--- NOTE | 2025-01-02 22:48 | PC.NURSE ---
At approximately 2230 pt came up to the window and told David HERMINIO that he felt like he was going to faint. Pt then sat on the ground. This nurse and other nursing staff entered the hallway at this time. VS at this time were BP- 132/95, HR- 75, RR- 20, and O2- 98%. Pts Blood sugar was also taken and was 92. HS was notified at this time and was asked to assist. Pt complained of feeling dizzy, feeling hot, and that his legs felt tingly. Pt was given a sandwich and orange juice and assisted by nursing staff to sit on the bench. After pt ate the sandwich and the juice he was asked if he could walk to his room and he said yes. This nurse assisted pt to his room with a wheelchair following. Pt was tucked into bed and told not to get up by himself and to either wait for 15 minute checks or tell the sitter outside his door that he needs assistance. Pt agreed. All questions and concerns are answered at this time
--- NOTE | 2025-01-02 23:01 | PC.NURSE ---
MEDICATION At approximately [address] Diggs and informed him of pts recent fatigue and that pt is now requesting something for his restless leg. Dr. Diggs ordered that pt receive 1mg of cogentin PO. This nurse took the Cogentin to the pts room and pt stated that he is no longer feeling tingly and that he wants to go watch TV in the dayroom. this nurse informed the pt that we would like him to stay in bed and try to get sleep. Pt then stated that he is not tired and that he feels that he can walk now. This nurse asked pt to wait a little longer before trying to walk and that later, someone will assist him to the dayroom. Pt agreed and took 1mg Cogentin with no issues.
[2025-01-03 06:00] VITALS: BP 132/87; PULSE 96; RESP 16; O2SAT 98
[2025-01-03] MEDS: CITALOPRAM 40 MG TABLET PO (08:29)
[2025-01-03 14:00] VITALS: BP 124/85; PULSE 100; RESP 16; TEMP 36.6; O2SAT 96
[2025-01-03 14:19] VITALS: BP 124/85; PULSE 100; RESP 16; TEMP 36.7; O2SAT 96
== END 2025-01-03 16:53 | disposition home or self-care (01) | DRG 776 ==
LOC: ER 20:36 → NP 12-28 02:53
PROVIDERS: Admitting Provider Psychiatry & Neurology Psychiatry; Emergency Provider Emergency Medicine; PCP Clinical Nurse Specialist Adult Health; Visit Provider Psychiatry & Neurology Psychiatry
DX: F19.959 Other psychoactive substance use, unspecified with psychoactive substance-induced psychotic disorder, unspecified (principal); F41.1 Generalized anxiety disorder; F32.9 Major depressive disorder, single episode, unspecified; F17.290 Nicotine dependence, other tobacco product, uncomplicated; G47.00 Insomnia, unspecified; F84.0 Autistic disorder; I10 Essential (primary) hypertension; E66.9 Obesity, unspecified; Z68.31 Body mass index [BMI] 31.0-31.9, adult
CPT/HCPCS: 36415; 36416; 70450; 80053; 80306; 80307; 81001; 82962; 83605; 84443; 85025; 86140; 87040; 87637; 93005; 96361; 96372; 96374; 97150; 97165; 99285; J2060; J2405; J3486; J3490; J7030; J9999

== ENCOUNTER 2025-01-27 17:57 | Emergency (ER) | payer MEDICAID, SELFPAY ==
--- OUTSIDE RECORDS SUMMARY | 2025-01-27 18:04 | XMS_ITS | Clinical Summary ---
Author Organization [facility] Address [address] [place]: Epic Prelude ADT [place] [address] Care Team Providers Care Bronzer Name Role Phone Yisel Tijerina Primary Care Provider Allergies Active Allergy Reactions Criticality Noted Date Comments Penicillins Other (See Comments) 01/28/2017 Bone pain, stomach pain Medications citalopram (CeleXA) 40 mg tabletIndication s:Recurrent major depressive disorder, in full remission Take 1 Tablet (40 mg) by mouth daily at bedtime. 30 Tablet 2 07/25/2017 Active Active Problems Problem Noted Date Diagnosed Date Recurrent major depressive disorder, in full rem ission 01/28/2017 Post-traumatic stress disorder 01/28/2017 Family History Medical History Relation Name Comments Brain Cancer Mother Lung Cancer Mother Relation Name Status Comments Mother Social History Tobacco Use Types Packs/Day Years Used Date Smoking Tobacco: Former Cigarettes 0 Q uit: 01/20/2017 Smokeless Tobacco: Never Alcohol Use Standard Drinks/Week Comments No 0 (1 standard drink = 0.6 oz pur e alcohol) Sex and Gender Information Value Date Recorded Sex Assigned at Not on file Legal Sex Male 1:12 PM HOOKER LASTER Gender Identity Not on file Sexual Orientation Not on file Last Filed Vital Signs Vital Sign Reading Time Taken Comments Blood Pressure 138/80 01/28/2017 12:46 PM HOOKER LASTER Pulse 82 01/28/2017 12:46 PM HOOKER LASTER Temperature 36.8 C (98.2 F) 01/28/2017 12:46 PM HOOKER LASTER Respiratory Rate 14 01/28/2017 12:4 6 PM HOOKER LASTER Oxygen Saturation - - Inhaled Oxygen Concentration - - Weight 81.6 kg (179 lb 12.8 oz) 017 12:46 PM HOOKER LASTER Height 177.8 cm (5' 10 ) 01/28/2017 12: 46 PM HOOKER LASTER Body Mass Index 25.8 01/28/2017 12:46 PM HOOKER LASTER Plan of Treatment Health Maintenance Due Date Last Done Comments DTAP/TDAP/TD VACCINES (1 - Tdap) 2009 HEPATITIS B VACCINES (1 of 3 - 19+ 3-dose series) 11/21 HPV VACCINES (1 - 3-dose SCDM series) 2017 INFLUENZA VACCINE (#1) 2024 Care Teams Bronzer Relationship Specialty Start Date End Date Yisel Tijerina DO [address] [place] [address] PCP - General Family Practice 01/28/17
--- OUTSIDE RECORDS SUMMARY | 2025-01-27 18:04 | XMS_ITS | Clinical Summary ---
Author Organization [facility] Address [address] [place] [address] Care Team Providers Care Floor Sweeper Name Role Phone Yisel Tijerina Primary Care [...] Years Used Date Smoking Tobacco: Former Cigarettes 1 1 03/22/2015 - 01/20/2017 Smokeless Tobacco: Never Alcohol Use Standard Drinks/Week Comments No 0 (1 standard drink = 0.6 oz pur e alcohol) Sex and Gender Information Value Date Recorded Sex Assigned at Not on file Legal Sex Male 1:39 PM [employer] RANGER Gender Identity Not on file Sexual Orientation Not on file Last Filed Vital Signs Vital Sign Reading Time Taken Comments Blood Pressure 138/80 01/28/2017 12:46 PM [facility] RANGER Pulse 82 01/28/2017 12:46 PM [facility] RANGER Temperature 36.8 C (98.2 F) 01/28/2017 12:46 PM [facility] RANGER Respiratory Rate 14 01/28/2017 12:4 6 PM [facility] RANGER Oxygen Saturation 100% 01/28/2017 12: 46 PM DISTRICT RANGER room air Inhaled Oxygen Concentration - - Weight 81.6 kg (179 lb 12.8 oz) 017 12:46 PM [facility] RANGER Height 177.8 cm (5' 10 ) 01/28/2017 12: 46 PM [facility] RANGER Body Mass Index 25.8 01/28/2017 12:46 PM [facility] RANGER Plan of Treatment Health Maintenance Due Date Last Done Comments DTAP/TDAP/TD VACCINES (1 - Tdap) 2009 HEPATITIS B VACCINES (1 of 3 - 19+ 3-dose series) 11/21 INFLUENZA VACCINE (#1) 2024 HPV VACCINES (No Doses Required) Completed Care Teams Floor Sweeper Relationship Specialty Start Date End Date Yisel Tijerina DO [address] [place] [id number] PCP - General Family Practice 01/28/17
[2025-01-27 18:20] VITALS: BP 169/93; PULSE 129; RESP 18; TEMP 36.4; O2SAT 98; BMI 40.1
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
[2025-01-27 18:56] VITALS: BP 122/80; PULSE 122; O2SAT 97
== END 2025-01-27 19:02 | disposition home or self-care (01) ==
PROVIDERS: Emergency Provider Physician Assistant; PCP Nurse Practitioner
DX: Z76.0 Encounter for issue of repeat prescription (principal); F17.290 Nicotine dependence, other tobacco product, uncomplicated; I10 Essential (primary) hypertension
CPT/HCPCS: 99283; J9999

== ENCOUNTER → 2025-01-28 14:53 | Outpatient (BNVA) | payer MEDICAID, SELFPAY | PROVIDERS: PCP Nurse Practitioner; Visit Provider Nurse Practitioner | DX: F19.10 Other psychoactive substance abuse, uncomplicated (principal); F15.10 Other stimulant abuse, uncomplicated; F11.159 Opioid abuse with opioid-induced psychotic disorder, unspecified | CPT/HCPCS: 80307 ==

== ENCOUNTER → 2025-02-05 17:17 | Outpatient (BNVA) | payer MEDICAID, SELFPAY | PROVIDERS: PCP Nurse Practitioner; Visit Provider Family Medicine | DX: Z20.822 Contact with and (suspected) exposure to COVID-19 (principal) | CPT/HCPCS: 87426 ==

== ENCOUNTER 2025-02-06 23:00 | Emergency (ER) | payer SELFPAY ==
[2025-02-06 23:03] VITALS: BP 135/91; PULSE 99; RESP 17; TEMP 36.7; O2SAT 100; BMI 33.7
--- OUTSIDE RECORDS SUMMARY | 2025-02-06 23:06 | XMS_ITS | Clinical Summary ---
Author Organization [facility] Address [address] 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 Gender Identity Not on file Sexual Orientation Not on file Last Filed Vital Signs Vital Sign Reading Time Taken Comments Blood Pressure 138/80 01/28/2017 12:46 PM MANIFEST CLERK Pulse 82 01/28/2017 12:46 PM MANIFEST CLERK Temperature 36.8 C (98.2 F) 01/28/2017 12:46 PM MANIFEST CLERK Respiratory Rate 14 01/28/2017 12:4 6 PM MANIFEST CLERK Oxygen Saturation - - Inhaled Oxygen Concentration - - Weight 81.6 kg (179 lb 12.8 oz) 017 12:46 PM MANIFEST CLERK Height 177.8 cm (5' 10 ) 01/28/2017 12: 46 PM MANIFEST CLERK Body Mass Index 25.8 01/28/2017 12:46 PM MANIFEST CLERK Plan of Treatment Health Maintenance Due Date Last Done Comments DTAP/TDAP/TD VACCINES (1 - Tdap) 2009 HEPATITIS B VACCINES (1 of 3 - 19+ 3-dose series) 11/21 INFLUENZA VACCINE (#1) 2024 HPV VACCINES (No Doses Required) Completed Care Teams Tailing Hand Relationship Specialty Start Date End Date Yisel Tijerina DO [address] [place] [id number] PCP - General Family Practice 01/28/17
--- OUTSIDE RECORDS SUMMARY | 2025-02-06 23:06 | XMS_ITS | Clinical Summary ---
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 Gender Identity Not on file Sexual Orientation Not on file Last Filed Vital Signs Vital Sign Reading Time Taken Comments Blood Pressure 138/80 01/28/2017 12:46 PM [employer]OCK [employer]IM[employer] TE[employer] MEMBER Pulse 82 01/28/2017 12:46 PM [employer]OCK [employer]IM[employer] TEAM MEMBER Temperature 36.8 C (98.2 F) 01/28/2017 12:46 PM [employer]OCK [employer] TEAM MEMBER Respiratory Rate 14 01/28/2017 12:4 6 PM [employer]OCK [employer] TEAM MEMBER Oxygen Saturation 100% 01/28/2017 12: 46 PM ROCK [employer]IMBING TEAM MEMBER room air Inhaled Oxygen Concentration - - Weight 81.6 kg (179 lb 12.8 oz) 017 12:46 PM ROCK [employer]IM[employer]ING TEAM MEMBER Height 177.8 cm (5' 10 ) 01/28/2017 12: 46 PM ROCK CLIMBING TEAM MEMBER Body Mass Index 25.8 01/28/2017 12:46 PM [employer]OCK [employer]IM[employer]ING TEAM MEMBER Plan of Treatment Health Maintenance Due Date Last Done Comments DTAP/TDAP/TD VACCINES (1 - Tdap) 2009 HEPATITIS B VACCINES (1 of 3 - 19+ 3-dose series) 11/21 INFLUENZA VACCINE (#1) 2024 HPV VACCINES (No Doses Required) Completed Care Teams Organic Chemistry Professor Relationship Specialty Start Date End Date Yisel Tijerina DO [address] [place] [id number] PCP - General Family Practice 01/28/17
[2025-02-06 23:37] VITALS: BP 137/91; PULSE 93; O2SAT 100
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
[2025-02-07 00:11] VITALS: BP 127/79; PULSE 82; O2SAT 94
== END 2025-02-07 00:23 | disposition home or self-care (01) ==
PROVIDERS: Emergency Provider Student in an Organized Health Care Education/Training Program; PCP Nurse Practitioner
DX: F19.239 Other psychoactive substance dependence with withdrawal, unspecified (principal); F17.290 Nicotine dependence, other tobacco product, uncomplicated; I10 Essential (primary) hypertension
CPT/HCPCS: 99283; J9999